=== PATIENT | female | born 1945 ===

== ENCOUNTER 2017-02-11 04:44 | Emergency (ER) | payer MEDICARE, MEDICAID ==
[2017-02-11 04:44] VITALS: BMI 28.5
[2017-02-11 05:08] VITALS: BP 148/53; RESP 22; O2SAT 93
--- NOTE | 2017-02-11 06:12 | C.PDOC ---
Time Seen by Provider: 02/11/17 06:09 Chief Complaint (Nursing): Headache Past Medical History Vital Signs: Last Vital Signs Temp Pulse 75 02/11/17 05:01 Resp 22 02/11/17 05:01 BP 148/53 L 02/11/17 05:01 Pulse Ox 93 L 02/11/17 05:01 - Medical History PMH: Asthma, Back Problems, Cardia Arrhythmia, COPD (Asthma), Emphysema, Gastritis, Gastrointestinal Ulcer, HTN, Osteoporosis Denies: Chronic Kidney Disease Surgical History: Appendectomy, Cholecystectomy, Endoscopy - [facility] Procedures ESOPHAGOGASTRODUODENOSCOPY [EGD] W/CLOSED BIOPSY (10/15/13) Family History: States: Unknown Family Hx - Social History Hx Tobacco Use: No Hx Alcohol Use: No Hx Substance Use: No - Immunization History Hx Tetanus Toxoid Vaccination: No Hx Influenza Vaccination: No Hx Pneumococcal Vaccination: No ED Course And Treatment O2 Sat by Pulse Oximetry: 93 Medical Decision Making Medical Decision Making: eloped Disposition - Disposition Disposition: ELOPEMENT - ER ONLY Disposition Time: 06:12 Condition: GOOD - Clinical Impression Clinical Impression: Epistaxis
[2017-02-11 06:53] VITALS: PULSE 18
--- NOTE | 2017-02-16 19:23 | CARD ---
APPROVED REPORT EKG Measurement Heart [id number] <Conclusion> Normal sinus rhythm Septal infarct, age undetermined Abnormal ECG
== END 2017-02-11 06:42 | disposition left against medical advice (07) ==
LOC: C.ER 04:44
DX: R04.0 Epistaxis (principal); M81.0 Age-related osteoporosis without current pathological fracture; I10 Essential (primary) hypertension; J44.9 Chronic obstructive pulmonary disease, unspecified

== ENCOUNTER 2017-09-23 10:19 | Inpatient (IN) | payer MEDICARE, MEDICAID ==
[2017-09-23 10:20] VITALS: BMI 28.5
[2017-09-23] MEDS ORDERED: Albuterol-Ipratrop 3 mg / 0.5 (3 ml) UD ONE ×2 (10:50→11:57)
--- NOTE | 2017-09-23 11:39 | C.PDOC ---
History Of Present Illness 72-year-old female, PMHx includes Asthma, presents to the emergency department with complaints of cough, congestion and shortness of breath over the past few days. Patient states symptoms are similar to asthma exacerbation. Denies nausea/ vomiting, fevers, chills, or any other associated symptoms. No other complaints at this time. Time Seen by Provider: 09/23/17 11:19 Chief Complaint (Nursing): Chest Pain History Per: Patient History/Exam Limitations: no limitations Onset/Duration Of Symptoms: Hrs Current Symptoms Are (Timing): Still Present Past Medical History Reviewed: Historical Data, Nursing Documentation, Vital Signs Vital Signs: Last Vital Signs Temp 97.8 F 09/26/17 09:14 Pulse 70 09/26/17 09:14 Resp 20 09/26/17 09:14 BP 163/72 H 09/26/17 09:14 Pulse Ox 95 09/26/17 09:14 - Medical History PMH: Asthma, Back Problems, Cardia Arrhythmia, COPD (Asthma), Emphysema, Gastritis, Gastrointestinal Ulcer, HTN, Osteoporosis Surgical History: Appendectomy, Cholecystectomy, Endoscopy - [facility] Procedures ESOPHAGOGASTRODUODENOSCOPY [EGD] W/CLOSED BIOPSY (10/15/13) Family History: States: No Known Family Hx - Social History Hx Tobacco Use: No Hx Alcohol Use: No Hx Substance Use: No - Immunization History Hx Tetanus Toxoid Vaccination: No Hx Influenza Vaccination: No Hx Pneumococcal Vaccination: No Review Of Systems Constitutional: Negative for: Fever, Chills Cardiovascular: Negative for: Chest Pain, Edema Respiratory: Positive for: Cough, Shortness of Breath, Wheezing. Negative for: Sputum Gastrointestinal: Negative for: Nausea, Vomiting Musculoskeletal: Negative for: Back Pain Neurological: Negative for: Weakness, Numbness, Headache, Dizziness Physical Exam - Physical Exam Appears: Non-toxic, No Acute Distress Skin: Warm, Dry, No Rash Head: Normacephalic Eye(s): bilateral: PERRL Nose: Normal Oral Mucosa: Moist Neck: Normal ROM Chest: Symmetrical Cardiovascular: Rhythm Regular, No Murmur Respiratory: No Decreased Breath Sounds, No Accessory Muscle Use, No Rales, No Rhonchi, Wheezing (B/L expiratory), Other (retractions) Extremity: Normal ROM Neurological/Psych: Oriented x3, Normal Speech ED Course And Treatment - Laboratory Results Result Diagrams: 09/25/17 06:48 09/25/17 06:48 ECG: Interpreted By Me ECG Rhythm: Sinus Rhythm ECG Interpretation: Normal Rate From EC O2 Sat by Pulse Oximetry: 97 (RA) Pulse Ox Interpretation: Normal Progress - Re-Evaluation Re-evaluation Note: 09/23/17 14:16 PS FEELS BETTER. NOW RELATES HO MYASTHENIA GRAVIS BUT NONCOMPLIANT W MEDS X 2 WEEKS. "I FEEL LIKE IT'S ACTING UP". MILD RESP DIST NEURO DR HOSKINS 09/23/17 14:18 D/W DR HOSKINS AWARE OF ER FINDINGS. ADVISES PEAK FLOW, DC IF WNL. 09/23/17 14:53 PF 110. WILL ADMIT PER NEUROLOGY RECOMMENDATION D/W DR Rose ADAMS MED BIOPHARMACEUTICAL REP WILL ADMIT - Data Reviewed Data Reviewed: Lab, Diagnostic imaging, Old records Disposition Counseled Patient/Family Regarding: Studies Performed, Diagnosis (N) - Disposition Disposition: HOSPITALIZED Disposition Time: 14:54 Condition: STABLE - Clinical Impression Clinical Impression: Myasthenia gravis with (acute) exacerbation, Asthma exacerbation - Scribe Statement The provider has reviewed the documentation as recorded by the Scribe (Azalia Taylor) All medical record entries made by the Scribe were at my direction and personally dictated by me. I have reviewed the chart and agree that the record accurately reflects my personal performance of the history, physical exam, medical decision making, and the department course for this patient. I have also personally directed, reviewed, and agree with the discharge instructions and disposition. Decision To Admit - Pt Status Changed To: Hospital Disposition Of: Inpatient - Admit Certification Admit to Inpatient:: After my assessment, the patient will require hospitalization for at least two midnights. This is because of the severity of symptoms shown, intensity of services needed, and/or the medical risk in this patient being treated as an outpatient. - InPatient: Physician Admission Certification: I certify that this patient requires 2 or more midnights of care for the following reason:: SEE NOTE - . Bed Request Type: Regular Admitting Physician: Eder Adams Patient Diagnosis: Myasthenia gravis with (acute) exacerbation, Asthma exacerbation
[2017-09-23] MEDS ORDERED: MethylPREDNISolone 40 mg Vial ONE (11:57)
[2017-09-23 12:30] LABS: VENOUS BLOOD GAS BASE EXCESS 3.4 mmol/L (0.0-2.0); VENOUS BLOOD GAS PCO2 55 mmHg (40-60); VENOUS BLOOD GAS PO2 51 mm/Hg (30-55); VENOUS BLOOD PH 7.35 (7.32-7.43)
[2017-09-23] MEDS: Albuterol-Ipratrop 3 mg / 0.5 (3 ml) UD IH SCH ×3 (12:30→13:00)
[2017-09-23 12:39] LABS: BASO # 0.1 K/uL (0.0-0.2); BASO % 1.2 % (0.0-2.0); EOS % 0.4 % (0.0-4.0); HEMOGLOBIN 14.4 g/dL (11.0-16.0); LYMPH # 1.3 K/uL (1.0-4.3); LYMPH % 22.2 % (20.0-40.0); MEAN CELL VOLUME 88.2 fL (81.0-99.0); MEAN CORPUSCULAR HEMOGLOBIN 29.3 pg (27.0-31.0); MEAN CORPUSCULAR HGB CONC 33.2 g/dL (33.0-37.0); MEAN PLATELET VOLUME 9.6 fL (7.2-11.7); MONO # 0.5 K/uL (0.0-0.8); MONO % 8.9 % (0.0-10.0); NEUT % 67.3 % (50.0-75.0); RBC 4.92 Mil/uL (3.80-5.20); RED CELL DISTRIBUTION WIDTH 13.6 % (11.5-14.5); WHITE BLOOD COUNT 5.9 K/uL (4.8-10.8)
[2017-09-23 12:53] LABS: ALB/GLOB RATIO 1.2 (1.0-2.1); ALBUMIN 4.3 g/dL (3.5-5.0); ALT/SGPT 26 U/L (9-52); AST/SGOT 34 U/L (14-36); BLOOD UREA NITROGEN 8 mg/dL (7-17); GFR AFRICAN-AMERICAN > 60; GFR NON-AFRICAN AMERICAN > 60
--- NOTE | 2017-09-23 13:04 | RAD ---
HISTORY: SOB COMPARISON: Chest x-ray performed 10/14/16 TECHNIQUE: Chest PA and lateral FINDINGS: Examination limited by habitus. LUNGS: Central vascular prominence. Chronic appearing interstitial markings. No focal consolidation. Please note that chest x-ray has limited sensitivity for the detection of pulmonary masses. PLEURA: No significant pleural effusion identified. No definite pneumothorax . CARDIOVASCULAR: Heart size appears within normal limits. Dense atherosclerotic calcifications of the aortic knob. OSSEOUS STRUCTURES: Degenerative changes of the spine. VISUALIZED UPPER ABDOMEN: Unremarkable. OTHER FINDINGS: None. IMPRESSION: Mild central vascular prominence. Chronic appearing interstitial markings.
[2017-09-23 13:05] LABS: B-TYPE NATRIURETIC PEPTIDE 123 pg/mL (0-900)
--- NOTE | 2017-09-23 19:30 | CP.PCM.HP ---
Past Patient History - Past Medical History & Family History Past Medical History?: Yes - Past Social History Smoking Status: Never Smoked - CARDIAC Hx Cardia Arrhythmia: Yes Hx Hypertension: Yes - PULMONARY Hx Asthma: Yes Hx Chronic Obstructive Pulmonary Disease (COPD): Yes (Asthma) Hx Emphysema: Yes - NEUROLOGICAL Hx Neurological Disorder: Yes HX Cerebrovascular Accident: Yes Other/Comment: myathenia gravis - HEENT Hx Cataracts: Yes - RENAL Hx Chronic Kidney Disease: No - ENDOCRINE/METABOLIC Hx Endocrine Disorders: No - HEMATOLOGICAL/ONCOLOGICAL Hx Blood Disorders: No - INTEGUMENTARY Hx Dermatological Problems: No - MUSCULOSKELETAL/RHEUMATOLOGICAL Hx Osteoporosis: Yes - GASTROINTESTINAL Hx Gastritis: Yes - GENITOURINARY/GYNECOLOGICAL Hx Genitourinary Disorders: No - PSYCHIATRIC Hx Substance Use: No - SURGICAL HISTORY Hx Appendectomy: Yes Hx Cholecystectomy: Yes - ANESTHESIA Hx Anesthesia: Yes Hx Anesthesia Reactions: No Hx Malignant Hyperthermia: No Meds Allergies/Adverse Reactions: Allergies Allergy/AdvReac Type Severity Reaction Status Date / Time Penicillins Allergy RASH Verified 09/23/17 10:53 Physical Exam - Constitutional Appears: Well - Head Exam Head Exam: ATRAUMATIC, NORMAL INSPECTION, NORMOCEPHALIC - Eye Exam Eye Exam: EOMI, Normal appearance, PERRL Pupil Exam: NORMAL ACCOMODATION, PERRL - ENT Exam ENT Exam: Mucous Membranes Moist, Normal Exam - Neck Exam Neck exam: Positive for: Normal Inspection - Respiratory Exam Respiratory Exam: Decreased Breath Sounds - Cardiovascular Exam Cardiovascular Exam: REGULAR RHYTHM, +S1, +S2 - GI/Abdominal Exam GI & Abdominal Exam: Diminished Bowel Sounds, Soft - Rectal Exam Rectal Exam: Deferred Results - Vital Signs Recent Vital Signs: Last Vital Signs Temp 99.4 F 09/23/17 17:25 Pulse 90 09/23/17 17:25 Resp 20 09/23/17 17:25 BP 165/65 H 09/23/17 17:25 Pulse Ox 95 09/23/17 17:25 - Labs Result Diagrams: 09/23/17 12:33 09/23/17 12:33 Labs: Laboratory Results - last 24 hr 09/23/17 09/23/17 09/23/17 12:19 12:27 12:33 WBC 5.9 RBC 4.92 Hgb 14.4 Hct 43.4 MCV 88.2 MCH 29.3 MCHC 33.2 RDW 13.6 Plt Count 248 MPV 9.6 Neut % (Auto) 67.3 Lymph % (Auto) 22.2 [place] % (Auto) 8.9 Eos % (Auto) 0.4 Baso % (Auto) 1.2 Neut # (Auto) 4.0 Lymph # (Auto) 1.3 [place] # (Auto) 0.5 Eos # (Auto) 0.0 Baso # (Auto) 0.1 pO2 51 VBG pH 7.35 VBG pCO2 55 VBG HCO3 27.2 VBG Total CO2 32.1 H VBG O2 Sat (Calc) 87.4 H VBG Base Excess 3.4 H VBG Potassium 2.8 L Sodium 141.0 Chloride 105.0 Glucose 106 H Lactate 1.6 Potassium Carbon Dioxide Anion Gap BUN Creatinine Est GFR ( Amer) Est GFR (Non-Af Amer) Random Glucose Calcium Total Bilirubin AST ALT Alkaline Phosphatase Troponin I NT-Pro-B Natriuret Pep Total Protein Albumin Globulin Albumin/Globulin Ratio Venous Blood Potassium 2.8 L Influenza Typ A,B (EIA) Negative for flu a/b 09/23/17 12:33 WBC RBC Hgb Hct MCV MCH MCHC RDW Plt Count MPV Neut % (Auto) Lymph % (Auto) [place] % (Auto) Eos % (Auto) Baso % (Auto) Neut # (Auto) Lymph # (Auto) [place] # (Auto) Eos # (Auto) Baso # (Auto) pO2 VBG pH VBG pCO2 VBG HCO3 VBG Total CO2 VBG O2 Sat (Calc) VBG Base Excess VBG Potassium Sodium 139 Chloride 95 L Glucose Lactate Potassium 3.2 L Carbon Dioxide 31 H Anion Gap 16 BUN 8 Creatinine 0.5 L Est GFR ( Amer) > 60 Est GFR (Non-Af Amer) > 60 Random Glucose 113 H Calcium 9.0 Total Bilirubin 0.3 AST 34 ALT 26 Alkaline Phosphatase 75 Troponin I < 0.0120 NT-Pro-B Natriuret Pep 123 Total Protein 7.9 Albumin 4.3 Globulin 3.7 Albumin/Globulin Ratio 1.2 Venous Blood Potassium Influenza Typ A,B (EIA)
[2017-09-23] MEDS ORDERED: Moxifloxacin IV 400mg/250ml NS 400 MG/250 ML BAG IVPB SCH (20:00)
[2017-09-23] MEDS: Apap-Butalbital-Caffeine 325-50-40mg Tab PO PRN (21:57)
[2017-09-23] MEDS: MethylPREDNISolone 40 mg Vial IVP SCH (21:57)
[2017-09-24] MEDS: Albuterol-Ipratrop 3 mg / 0.5 (3 ml) UD INH SCH ×4 (01:38→20:35)
[2017-09-24] MEDS: MethylPREDNISolone 40 mg Vial IVP SCH ×3 (05:10→21:10)
--- NOTE | 2017-09-24 07:25 | CP.PCM.CON ---
History of Present Illness - History of Present Illness History of Present Illness: consult dictated RESTPIRATORY COMPLAINTS KNOWN MYASTHENIA NON COMPLIANT WITH MEDS Rx FROM PULMONARY FOR HER ISSUES WILL REPEAT MG WORK UP NO MESTINON FOR NOW Past Patient History - Past Medical History & Family History Past Medical History?: Yes - Past Social History Smoking Status: Former Smoker - CARDIAC Hx Cardia Arrhythmia: Yes Hx Hypertension: Yes - PULMONARY Hx Asthma: Yes Hx Chronic Obstructive Pulmonary Disease (COPD): Yes (Asthma) Hx Emphysema: Yes - NEUROLOGICAL Hx Neurological Disorder: Yes HX Cerebrovascular Accident: Yes Other/Comment: myathenia gravis - HEENT Hx Cataracts: Yes - RENAL Hx Chronic Kidney Disease: No - ENDOCRINE/METABOLIC Hx Endocrine Disorders: No - HEMATOLOGICAL/ONCOLOGICAL Hx Blood Disorders: No - INTEGUMENTARY Hx Dermatological Problems: No - MUSCULOSKELETAL/RHEUMATOLOGICAL Hx Falls: No - GASTROINTESTINAL Hx Gastritis: Yes - GENITOURINARY/GYNECOLOGICAL Hx Genitourinary Disorders: No - PSYCHIATRIC Hx Substance Use: No - SURGICAL HISTORY Hx Appendectomy: Yes Hx Cholecystectomy: Yes - ANESTHESIA Hx Anesthesia: Yes Hx Anesthesia Reactions: No Hx Malignant Hyperthermia: No Meds Allergies/Adverse Reactions: Allergies Allergy/AdvReac Type Severity Reaction Status Date / Time Penicillins Allergy RASH Verified 09/23/17 10:53 - Medications Medications: Current Medications Acetaminophen/Butalbital/Caffeine (Fioricet) 1 tab PO BID PRN PRN Reason: Headache Last Admin: 09/23/17 21:57 Dose: 1 tab Albuterol/Ipratropium (Duoneb 3 Mg/0.5 Mg (3 Ml) Ud) 3 ml INH RQ6 [facility] Last Admin: 09/24/17 01:38 Dose: 3 ml Enoxaparin Sodium (Lovenox) 40 mg SC DAILY [facility] Moxifloxacin HCl (Avelox Iv 400mg/250ml Ns) 400 mg in 250 mls @ 167 mls/hr IVPB Q24H [facility] Last Admin: 09/23/17 22:11 Dose: 167 mls/hr Losartan Potassium (Cozaar) 100 mg PO DAILY [facility] Memantine (Namenda) 5 mg PO DAILY [facility] Methylprednisolone (Solu-Medrol) 40 mg IVP Q8 [facility] Last Admin: 09/24/17 05:10 Dose: 40 mg Montelukast Sodium (Singulair) 10 mg PO HS [facility] Last Admin: 09/23/17 21:58 Dose: 10 mg Pantoprazole Sodium (Protonix Ec Tab) 40 mg PO DAILY [facility] Pneumococcal Polyvalent Vaccine (Pneumovax 23 Vaccine) 0.5 ml IM .ONCE ONE Stop: 09/25/17 10:01 Fluticasone/Salmeterol (Advair Diskus 250/50) 1 puff INH RQ12 [facility] Sertraline HCl (Zoloft) 50 mg PO HS [facility] Last Admin: 09/23/17 22:20 Dose: 50 mg Results - Vital Signs Recent Vital Signs: Last Vital Signs Temp 97.6 F 09/24/17 00:00 Pulse 83 09/24/17 00:00 Resp 20 09/24/17 00:00 BP 154/66 H 09/23/17 20:00 Pulse Ox 94 L 09/24/17 00:00 - Labs Result Diagrams: 09/23/17 12:33 09/23/17 12:33 Labs: Laboratory Results - last 24 hr 09/23/17 09/23/17 09/23/17 12:19 12:27 12:33 WBC 5.9 RBC 4.92 Hgb 14.4 Hct 43.4 MCV 88.2 MCH 29.3 MCHC 33.2 RDW 13.6 Plt Count 248 MPV 9.6 Neut % (Auto) 67.3 Lymph % (Auto) 22.2 [place] % (Auto) 8.9 Eos % (Auto) 0.4 Baso % (Auto) 1.2 Neut # (Auto) 4.0 Lymph # (Auto) 1.3 [place] # (Auto) 0.5 Eos # (Auto) 0.0 Baso # (Auto) 0.1 pO2 51 VBG pH 7.35 VBG pCO2 55 VBG HCO3 27.2 VBG Total CO2 32.1 H VBG O2 Sat (Calc) 87.4 H VBG Base Excess 3.4 H VBG Potassium 2.8 L Sodium 141.0 Chloride 105.0 Glucose 106 H Lactate 1.6 Potassium Carbon Dioxide Anion Gap BUN Creatinine Est GFR ( Amer) Est GFR (Non-Af Amer) Random Glucose Calcium Total Bilirubin AST ALT Alkaline Phosphatase Troponin I NT-Pro-B Natriuret Pep Total Protein Albumin Globulin Albumin/Globulin Ratio Venous Blood Potassium 2.8 L Influenza Typ A,B (EIA) Negative for flu a/b 09/23/17 12:33 WBC RBC Hgb Hct MCV MCH MCHC RDW Plt Count MPV Neut % (Auto) Lymph % (Auto) [place] % (Auto) Eos % (Auto) Baso % (Auto) Neut # (Auto) Lymph # (Auto) [place] # (Auto) Eos # (Auto) Baso # (Auto) pO2 VBG pH VBG pCO2 VBG HCO3 VBG Total CO2 VBG O2 Sat (Calc) VBG Base Excess VBG Potassium Sodium 139 Chloride 95 L Glucose Lactate Potassium 3.2 L Carbon Dioxide 31 H Anion Gap 16 BUN 8 Creatinine 0.5 L Est GFR ( Amer) > 60 Est GFR (Non-Af Amer) > 60 Random Glucose 113 H Calcium 9.0 Total Bilirubin 0.3 AST 34 ALT 26 Alkaline Phosphatase 75 Troponin I < 0.0120 NT-Pro-B Natriuret Pep 123 Total Protein 7.9 Albumin 4.3 Globulin 3.7 Albumin/Globulin Ratio 1.2 Venous Blood Potassium Influenza Typ A,B (EIA)
[2017-09-24] MEDS: Fluticasone-Salmeterol 250-50mcg Diskus INH SCH ×2 (07:33→20:35)
[2017-09-24] MEDS: Enoxaparin 40 mg Syringe SC SCH (09:26)
[2017-09-24] MEDS: Pantoprazole 40 mg EC Tab PO SCH (09:26)
[2017-09-24] MEDS: Apap-Butalbital-Caffeine 325-50-40mg Tab PO PRN ×2 (09:26→21:10)
[2017-09-24] MEDS ORDERED: Iodixanol 320 MG/ML 100 ML BOTTLE IV ONE (11:49)
--- NOTE | 2017-09-24 13:24 | CT ---
CT chest with IV contrast Indication: Rule out thymoma Technique: Contiguous axial images were obtained through the chest with intravenous contrast enhancement. Sagittal and coronal reconstructions were generated and reviewed. This CT exam was performed using 1 or more of the following dose reduction techniques: Automated exposure control, adjustment of the MAA and/or kV according to patient size, and/or use of iterative reconstruction technique. IV Contrast: 100 mL Visipaque Radiation dose (DLP): 604.15 MGy-cm. Comparison: Chest x-ray performed 09/23/17 Findings: Visualized portions of the inferior thyroid gland appear unremarkable. The mediastinal and hilar vascular structures appear within normal limits. The heart appears within normal limits of size. Coronary artery calcifications. Atherosclerotic calcifications of the aorta. Emphysematous changes. No focal consolidation. No pleural effusion. No pneumothorax. Right middle lobe calcified granuloma. Limited visualization of the upper abdomen: Cholecystectomy clips. Hypoattenuation of the liver compatible with hepatic steatosis. Left adrenal gland nodular hypertrophy. Degenerative changes of the spine. Impression: Emphysematous changes. Evidence of prior granulomatous infection. Limited visualization of the upper abdomen: Cholecystectomy clips. Hypoattenuation of the liver compatible with hepatic steatosis. Left adrenal gland nodular hypertrophy.
--- NOTE | 2017-09-24 13:44 | CP.PCM.CON ---
History of Present Illness - History of Present Illness History of Present Illness: Patient is a 72 y/o female with PMH of asthma, COPD, Myesthinea Gravis, and gastritis who presented to the ER with 3 days of wheezing, productive cough, and shortness of breath. The patient states that this episode feels like a typical asthma exacerbation for her, but more severe. Patient reports that she has smoked "5-7 ppd for the last 35 years". Denies any intubations in the past. The patient is in no acute distress and is speaking in full sentences. She reports improvement in her breathing since she came in. Denies fevers/chills, chest pain, myalgias, and nausea/vomiting. Review of Systems - Review of Systems All systems: reviewed and no additional remarkable complaints except (shortness of breath and cough) Past Patient History - Past Medical History & Family History Past Medical History?: Yes - Past Social History Smoking Status: Former Smoker - CARDIAC Hx Cardia Arrhythmia: Yes Hx Hypertension: Yes - PULMONARY Hx Asthma: Yes Hx Chronic Obstructive Pulmonary Disease (COPD): Yes (Asthma) Hx Emphysema: Yes - NEUROLOGICAL Hx Neurological Disorder: Yes HX Cerebrovascular Accident: Yes Other/Comment: myathenia gravis - HEENT Hx Cataracts: Yes - RENAL Hx Chronic Kidney Disease: No - ENDOCRINE/METABOLIC Hx Endocrine Disorders: No - HEMATOLOGICAL/ONCOLOGICAL Hx Blood Disorders: No - INTEGUMENTARY Hx Dermatological Problems: No - MUSCULOSKELETAL/RHEUMATOLOGICAL Hx Falls: No - GASTROINTESTINAL Hx Gastritis: Yes - GENITOURINARY/GYNECOLOGICAL Hx Genitourinary Disorders: No - PSYCHIATRIC Hx Substance Use: No - SURGICAL HISTORY Hx Appendectomy: Yes Hx Cholecystectomy: Yes - ANESTHESIA Hx Anesthesia: Yes Hx Anesthesia Reactions: No Hx Malignant Hyperthermia: No Meds Allergies/Adverse Reactions: Allergies Allergy/AdvReac Type Severity Reaction Status Date / Time Penicillins Allergy RASH Verified 09/23/17 10:53 - Medications Medications: Current Medications Acetaminophen/Butalbital/Caffeine (Fioricet) 1 tab PO BID PRN PRN Reason: Headache Last Admin: 09/24/17 09:26 Dose: 1 tab Albuterol/Ipratropium (Duoneb 3 Mg/0.5 Mg (3 Ml) Ud) 3 ml INH RQ6 [facility] Last Admin: 09/24/17 07:33 Dose: 3 ml Enoxaparin Sodium (Lovenox) 40 mg SC DAILY [facility] Last Admin: 09/24/17 09:26 Dose: 40 mg Moxifloxacin HCl (Avelox Iv 400mg/250ml Ns) 400 mg in 250 mls @ 167 mls/hr IVPB Q24H [facility] Last Admin: 09/23/17 22:11 Dose: 167 mls/hr Losartan Potassium (Cozaar) 100 mg PO DAILY [facility] Last Admin: 09/24/17 09:26 Dose: 100 mg Memantine (Namenda) 5 mg PO DAILY [facility] Last Admin: 09/24/17 09:26 Dose: 5 mg Methylprednisolone (Solu-Medrol) 40 mg IVP Q8 [facility] Last Admin: 09/24/17 05:10 Dose: 40 mg Montelukast Sodium (Singulair) 10 mg PO [facility] Last Admin: 09/23/17 21:58 Dose: 10 mg Pantoprazole Sodium (Protonix Ec Tab) 40 mg PO DAILY [facility] Last Admin: 09/24/17 09:26 Dose: 40 mg Pneumococcal Polyvalent Vaccine (Pneumovax 23 Vaccine) 0.5 ml IM .ONCE ONE Stop: 09/25/17 10:01 Fluticasone/Salmeterol (Advair Diskus 250/50) 1 puff INH RQ12 [facility] Last Admin: 09/24/17 07:33 Dose: 1 puff Sertraline HCl (Zoloft) 50 mg PO [facility] Last Admin: 09/23/17 22:20 Dose: 50 mg Physical Exam - Head Exam Head Exam: ATRAUMATIC, NORMOCEPHALIC - ENT Exam ENT Exam: Mucous Membranes Moist - Neck Exam Neck exam: Positive for: Normal Inspection - Respiratory Exam Respiratory Exam: Rhonchi, Wheezes - Cardiovascular Exam Cardiovascular Exam: REGULAR RHYTHM - GI/Abdominal Exam GI & Abdominal Exam: Normal Bowel Sounds, Soft - Extremities Exam Extremities exam: Positive for: normal inspection - Neurological Exam Neurological exam: Alert, Oriented x3 Results - Vital Signs Recent Vital Signs: Last Vital Signs Temp 98.3 F 09/24/17 07:35 Pulse 87 09/24/17 07:35 Resp 20 09/24/17 07:35 BP 154/71 H 09/24/17 07:35 Pulse Ox 97 09/24/17 07:35 - Labs Result Diagrams: 09/23/17 12:33 09/23/17 12:33 Assessment & Plan (1) Asthma exacerbation Status: Acute Comment: secondary to upper respiratory tract infection/bronchitis. 1. Shortness of breath. - CXR 09/23/17: central vascular prominence, chronic appearing interstitial markings, no focal consolidation. - Influenza A/B negative. - Duonebs, solu-medrol, singulair, advair diskus. - Abx: Avelox. - Consider ABG
--- NOTE | 2017-09-24 14:55 | CON ---
DATE: 09/24/2017. ATTENDING PHYSICIAN: Alex Estrada MD. LOCATION: Room #351, bed B. REASON FOR CONSULTATION: Respiratory problem with history of myasthenia gravis. HISTORY OF PRESENT ILLNESS: Ms. Lexii Jin is a 72-year-old right handed female who is known to me from outpatient visit, been worked up for her weakness, been diagnosed myasthenia gravis in the past, been on medication, which was discontinued by her own for almost a year or so, presenting with cough and cold, productive in nature for the last one week. She denies any focal weakness. No droopy eyelid. No double vision. However, she admitted generalized weakness. PAST MEDICAL HISTORY: As stated myasthenia gravis, depression, bronchial asthma. PERSONAL HISTORY: Denies smoking, alcohol use. ALLERGIES: TO PENICILLIN. REVIEW OF SYSTEMS: A 12-point system being reviewed. From neuro, myasthenia gravis and generalized weakness. PHYSICAL EXAMINATION: VITAL SIGNS: Blood pressure 154/66, mean arterial pressure of 95, respiratory rate 16, temperature afebrile. NECK: Supple. Neck flexion is 4/5. HEART: Sounds are regular with mild tachycardia. EXTREMITIES: No edema of legs. LUNGS: In one breath, she could able to count the number up to 15. NEUROLOGICAL EXAMINATION: Mental status examination, she is awake, alert and oriented to person, place and time. She is communicable only in [place]. Her speech is fluent. Cranial nerve examination, visual field intact. Pupils reactive to light. Extraocular movements are normal. No paresis. No subjective as well as objective diplopia. No ptosis. Good gag. Motor examination, outstretched hand with eyes closed, no drift noted. Power is symmetric on either side. Deep tendon reflexes trace on either side. Plantars are downgoing. Sensory examination, mild distal sensorimotor neuropathy. Coordination, [id number] test is intact. Gait is deferred at this time. LABORATORY DATA: Blood workup, WBC 5.9, hemoglobin 14.4, hematocrit 43.4, platelet 248. VBG 7.35, PCO2 32.1, oxygen 87.4, PO2 51. Sodium 139, potassium 3.2, chloride 95, bicarbonate 31, BUN 8, creatinine 0.5, GFR more than 60, glucose 113. Chest x-ray been reported as mild central vascular prominence. CONCLUSION: Ms. Lexii Jin is suffering from history of myasthenia gravis, been worked up in the past, right now she is not on any cholinergic medication for her myasthenia gravis. RECOMMENDATIONS: 1. Control her pulmonary infection with proper antibiotics and adrenergic drugs. 2. I recommended her acetylcholine receptor antibody antibodies. I also recommended her to have a CT of the chest with contrast to rule out thymoma. No point of starting medication for myasthenia gravis at present. I would like to follow her vital capacity. If necessary, I will start her medication following her workup. Shlomo Novak MD
--- NOTE | 2017-09-24 16:45 | CP.PCM.PN ---
Subjective - Date & Time of Evaluation Date of Evaluation: 09/24/17 Time of Evaluation: 08:00 - Subjective Subjective: clinically same Objective - Vital Signs/Intake and Output Vital Signs (last 24 hours): Temp Pulse Resp BP Pulse Ox 98.3 F 87 20 154/71 H 97 09/24/17 07:35 09/24/17 07:35 09/24/17 07:35 09/24/17 07:35 09/24/17 07:35 - Medications Medications: Current Medications Acetaminophen/Butalbital/Caffeine (Fioricet) 1 tab PO BID PRN PRN Reason: Headache Last Admin: 09/24/17 09:26 Dose: 1 tab Albuterol/Ipratropium (Duoneb 3 Mg/0.5 Mg (3 Ml) Ud) 3 ml INH RQ6 [facility] Last Admin: 09/24/17 14:07 Dose: 3 ml Enoxaparin Sodium (Lovenox) 40 mg SC DAILY [facility] Last Admin: 09/24/17 09:26 Dose: 40 mg Moxifloxacin HCl (Avelox Iv 400mg/250ml Ns) 400 mg in 250 mls @ 167 mls/hr IVPB Q24H [facility] Last Admin: 09/23/17 22:11 Dose: 167 mls/hr Losartan Potassium (Cozaar) 100 mg PO DAILY [facility] Last Admin: 09/24/17 09:26 Dose: 100 mg Memantine (Namenda) 5 mg PO DAILY [facility] Last Admin: 09/24/17 09:26 Dose: 5 mg Methylprednisolone (Solu-Medrol) 40 mg IVP Q8 [facility] Last Admin: 09/24/17 14:07 Dose: 40 mg Montelukast Sodium (Singulair) 10 mg PO HS [facility] Last Admin: 09/23/17 21:58 Dose: 10 mg Pantoprazole Sodium (Protonix Ec Tab) 40 mg PO DAILY [facility] Last Admin: 09/24/17 09:26 Dose: 40 mg Pneumococcal Polyvalent Vaccine (Pneumovax 23 Vaccine) 0.5 ml IM .ONCE ONE Stop: 09/25/17 10:01 Fluticasone/Salmeterol (Advair Diskus 250/50) 1 puff INH RQ12 [facility] Last Admin: 09/24/17 07:33 Dose: 1 puff Sertraline HCl (Zoloft) 50 mg PO HS [facility] Last Admin: 09/23/17 22:20 Dose: 50 mg - Labs Labs: 09/23/17 12:33 09/23/17 12:33 - Constitutional Appears: Well - Head Exam Head Exam: ATRAUMATIC, NORMAL INSPECTION, NORMOCEPHALIC - Eye Exam Eye Exam: EOMI, Normal appearance, PERRL Pupil Exam: NORMAL ACCOMODATION, PERRL - ENT Exam ENT Exam: Mucous Membranes Moist, Normal Exam - Neck Exam Neck Exam: Full ROM, Normal Inspection. absent: Lymphadenopathy - Respiratory Exam Respiratory Exam: Decreased Breath Sounds - Cardiovascular Exam Cardiovascular Exam: REGULAR RHYTHM, +S1, +S2 - GI/Abdominal Exam GI & Abdominal Exam: Soft, Diminished Bowel Sounds - Rectal Exam Rectal Exam: Deferred
[2017-09-25] MEDS: Albuterol-Ipratrop 3 mg / 0.5 (3 ml) UD INH SCH ×4 (02:35→19:35)
[2017-09-25] MEDS: MethylPREDNISolone 40 mg Vial IVP SCH ×3 (05:15→22:13)
[2017-09-25 06:59] LABS: BASO % 0.2 % (0.0-2.0); HEMOGLOBIN 12.8 g/dL (11.0-16.0); LYMPH # 1.3 K/uL (1.0-4.3); LYMPH % 11.3 % (20.0-40.0); MEAN CELL VOLUME 87.8 fL (81.0-99.0); MEAN CORPUSCULAR HGB CONC 33.1 g/dL (33.0-37.0); MEAN PLATELET VOLUME 9.7 fL (7.2-11.7); MONO # 0.7 K/uL (0.0-0.8); MONO % 6.7 % (0.0-10.0); NEUT # 9.1 K/uL (1.8-7.0); NEUT % 81.8 % (50.0-75.0); RBC 4.39 Mil/uL (3.80-5.20); RED CELL DISTRIBUTION WIDTH 13.8 % (11.5-14.5); WHITE BLOOD COUNT 11.2 K/uL (4.8-10.8)
[2017-09-25 07:11] LABS: ALB/GLOB RATIO 1.1 (1.0-2.1); ALBUMIN 3.8 g/dL (3.5-5.0); ALT/SGPT 30 U/L (9-52); AST/SGOT 34 U/L (14-36); BLOOD UREA NITROGEN 23 mg/dL (7-17); CALCIUM 9.3 mg/dl (8.6-10.4); GFR AFRICAN-AMERICAN > 60; GFR NON-AFRICAN AMERICAN > 60
[2017-09-25] MEDS: Fluticasone-Salmeterol 250-50mcg Diskus INH SCH ×2 (07:21→19:33)
--- NOTE | 2017-09-25 09:08 | PN ---
DATE: 09/25/2017. NEUROLOGICAL PROBLEM: Myasthenia gravis. PHYSICAL EXAMINATION: VITAL SIGNS: Blood pressure 167/69, mean artery pressure of 101, respiratory rate 16, temperature 98.6. GENERAL: The patient has been comfortable, lying down, awake, less cough, slept good. Rest of the examinations are unchanged. Her work up for myasthenia gravis CT of the chest, no evidence of thymoma. The blood work for acetylcholine receptor antibodies are pending. Continue the present management. If medically stable, the patient can be discharged and should have followup visit with me as outpatient. Shlomo Novak MD
[2017-09-25] MEDS: Enoxaparin 40 mg Syringe SC SCH (09:23)
[2017-09-25] MEDS: Apap-Butalbital-Caffeine 325-50-40mg Tab PO PRN ×2 (09:23→17:56)
[2017-09-25] MEDS: Pantoprazole 40 mg EC Tab PO SCH (09:24)
[2017-09-25] MEDS ORDERED: Pneumococcal 23-Valent Vaccine IM ONE (10:00)
[2017-09-25] MEDS: guaiFENesin 600 mg ER Tab PO SCH ×2 (13:18→17:56)
--- NOTE | 2017-09-25 13:45 | CP.PCM.PN ---
Subjective - Date & Time of Evaluation Date of Evaluation: 09/25/17 Time of Evaluation: 09:00 - Subjective Subjective: Patient was seen and examined at the bedside. Patient reports feeling better today, however, she had some trouble sleeping last night. She still complains of a cough that is sometimes productive. She states her wheezing and shortness of breath are slightly improved. She is tolerating her medications. She denies any chest pain, palpitations nausea, or vomiting. Objective - Vital Signs/Intake and Output Vital Signs (last 24 hours): Temp Pulse Resp BP Pulse Ox 97.3 F L 86 20 162/66 H 99 09/25/17 08:03 09/25/17 08:03 09/25/17 08:03 09/25/17 08:03 09/25/17 08:03 Intake and Output: 09/25/17 09/25/17 06:59 18:59 Intake Total 250 Balance 250 - Medications Medications: Current Medications Acetaminophen/Butalbital/Caffeine (Fioricet) 1 tab PO BID PRN PRN Reason: Headache Last Admin: 09/25/17 09:23 Dose: 1 tab Albuterol/Ipratropium (Duoneb 3 Mg/0.5 Mg (3 Ml) Ud) 3 ml INH RQ6 [facility] Last Admin: 09/25/17 13:08 Dose: 3 ml Enoxaparin Sodium (Lovenox) 40 mg SC DAILY [facility] Last Admin: 09/25/17 09:23 Dose: 40 mg Guaifenesin (Mucinex La) 600 mg PO BID [facility] Last Admin: 09/25/17 13:18 Dose: 600 mg Losartan Potassium (Cozaar) 100 mg PO DAILY [facility] Last Admin: 09/25/17 09:24 Dose: 100 mg Memantine (Namenda) 5 mg PO DAILY [facility] Last Admin: 09/25/17 09:22 Dose: 5 mg Methylprednisolone (Solu-Medrol) 40 mg IVP Q8 [facility] Last Admin: 09/25/17 13:18 Dose: 40 mg Montelukast Sodium (Singulair) 10 mg PO HS [facility] Last Admin: 09/24/17 21:10 Dose: 10 mg Moxifloxacin HCl (Avelox) 400 mg PO Q24H [facility] Last Admin: 09/24/17 21:10 Dose: 400 mg Pantoprazole Sodium (Protonix Ec Tab) 40 mg PO DAILY [facility] Last Admin: 09/25/17 09:24 Dose: 40 mg Fluticasone/Salmeterol (Advair Diskus 250/50) 1 puff INH RQ12 [facility] Last Admin: 09/25/17 07:21 Dose: 1 puff Sertraline HCl (Zoloft) 50 mg PO HS [facility] Last Admin: 09/24/17 21:15 Dose: 50 mg - Labs Labs: 09/25/17 06:48 09/25/17 06:48 - Head Exam Head Exam: ATRAUMATIC, NORMOCEPHALIC - Eye Exam Eye Exam: Normal appearance - ENT Exam ENT Exam: Mucous Membranes Moist - Neck Exam Neck Exam: Normal Inspection - Respiratory Exam Respiratory Exam: Rhonchi, Wheezes - Cardiovascular Exam Cardiovascular Exam: REGULAR RHYTHM - GI/Abdominal Exam GI & Abdominal Exam: Soft, Normal Bowel Sounds - Extremities Exam Extremities Exam: Normal Inspection - Neurological Exam Neurological Exam: Alert Assessment and Plan (1) COPD exacerbation Assessment & Plan: -chest CT: emphysematous changes, chronic appearing interstitial markings, prior granulomatous infection -continue avelox -continue duoneb treatments -continue solumedrol -continue advair Status: Acute
--- NOTE | 2017-09-25 16:41 | CARD ---
APPROVED REPORT EKG Measurement Heart [id number] ID [id number] <Conclusion> Normal sinus rhythm Septal infarct, age undetermined Abnormal ECG
--- NOTE | 2017-09-25 18:01 | CP.PCM.PN ---
Subjective - Date & Time of Evaluation Date of Evaluation: 09/25/17 Time of Evaluation: 08:40 - Subjective Subjective: clinically same Objective - Vital Signs/Intake and Output Vital Signs (last 24 hours): Temp Pulse Resp BP Pulse Ox 97.3 F L 86 20 162/66 H 99 09/25/17 08:03 09/25/17 08:03 09/25/17 08:03 09/25/17 08:03 09/25/17 08:03 Intake and Output: 09/25/17 09/25/17 06:59 18:59 Intake Total 250 500 Balance 250 500 - Medications Medications: Current Medications Acetaminophen/Butalbital/Caffeine (Fioricet) 1 tab PO BID PRN PRN Reason: Headache Last Admin: 09/25/17 17:56 Dose: 1 tab Albuterol/Ipratropium (Duoneb 3 Mg/0.5 Mg (3 Ml) Ud) 3 ml INH RQ6 [facility] Last Admin: 09/25/17 13:08 Dose: 3 ml Enoxaparin Sodium (Lovenox) 40 mg SC DAILY [facility] Last Admin: 09/25/17 09:23 Dose: 40 mg Guaifenesin (Mucinex La) 600 mg PO BID [facility] Last Admin: 09/25/17 17:56 Dose: 600 mg Losartan Potassium (Cozaar) 100 mg PO DAILY [facility] Last Admin: 09/25/17 09:24 Dose: 100 mg Memantine (Namenda) 5 mg PO DAILY [facility] Last Admin: 09/25/17 09:22 Dose: 5 mg Methylprednisolone (Solu-Medrol) 40 mg IVP Q8 [facility] Last Admin: 09/25/17 13:18 Dose: 40 mg Montelukast Sodium (Singulair) 10 mg PO HS [facility] Last Admin: 09/24/17 21:10 Dose: 10 mg Moxifloxacin HCl (Avelox) 400 mg PO Q24H [facility] Last Admin: 09/24/17 21:10 Dose: 400 mg Pantoprazole Sodium (Protonix Ec Tab) 40 mg PO DAILY [facility] Last Admin: 09/25/17 09:24 Dose: 40 mg Fluticasone/Salmeterol (Advair Diskus 250/50) 1 puff INH RQ12 [facility] Last Admin: 09/25/17 07:21 Dose: 1 puff Sertraline HCl (Zoloft) 50 mg PO HS [facility] Last Admin: 09/24/17 21:15 Dose: 50 mg - Labs Labs: 09/25/17 06:48 09/25/17 06:48 - Constitutional Appears: Well - Head Exam Head Exam: ATRAUMATIC, NORMAL INSPECTION, NORMOCEPHALIC - Eye Exam Eye Exam: EOMI, Normal appearance, PERRL Pupil Exam: NORMAL ACCOMODATION, PERRL - ENT Exam ENT Exam: Mucous Membranes Moist, Normal Exam - Neck Exam Neck Exam: Full ROM, Normal Inspection. absent: Lymphadenopathy - Respiratory Exam Respiratory Exam: Decreased Breath Sounds - Cardiovascular Exam Cardiovascular Exam: REGULAR RHYTHM, +S1, +S2 - GI/Abdominal Exam GI & Abdominal Exam: Soft, Diminished Bowel Sounds - Rectal Exam Rectal Exam: Deferred
[2017-09-25] MEDS ORDERED: Potassium Chloride 20 mEq ER Tab PO STA (19:32)
[2017-09-26] MEDS: Albuterol-Ipratrop 3 mg / 0.5 (3 ml) UD INH SCH ×4 (01:44→20:52)
[2017-09-26] MEDS: MethylPREDNISolone 40 mg Vial IVP SCH ×3 (05:34→21:24)
[2017-09-26] MEDS: Fluticasone-Salmeterol 250-50mcg Diskus INH SCH ×2 (08:12→20:52)
[2017-09-26] MEDS ORDERED: Influenza Vaccine 60 mcg/0.5 mL SYR (4YR UP) IM ONE (10:00)
[2017-09-26] MEDS: Apap-Butalbital-Caffeine 325-50-40mg Tab PO PRN ×2 (11:31→21:23)
[2017-09-26] MEDS: Enoxaparin 40 mg Syringe SC SCH (11:31)
[2017-09-26] MEDS: Pantoprazole 40 mg EC Tab PO SCH (11:33)
[2017-09-26] MEDS: guaiFENesin 600 mg ER Tab PO SCH ×2 (13:02→17:29)
--- NOTE | 2017-09-26 17:38 | CP.PCM.PN ---
Subjective - Date & Time of Evaluation Date of Evaluation: 09/26/17 Time of Evaluation: 09:00 - Subjective Subjective: patient seen and examined Cough and shortness of breath is improving Afebrile Denies any chest pain Being treated for COPD exacerbation Continue IV steroids and nebulizer treatment Objective - Vital Signs/Intake and Output Vital Signs (last 24 hours): Temp Pulse Resp BP Pulse Ox 97.8 F 70 20 163/72 H 95 09/26/17 09:14 09/26/17 09:14 09/26/17 09:14 09/26/17 09:14 09/26/17 09:14 Intake and Output: 09/26/17 09/26/17 06:59 18:59 Intake Total 300 Balance 300 - Medications Medications: Current Medications Acetaminophen/Butalbital/Caffeine (Fioricet) 1 tab PO BID PRN PRN Reason: Headache Last Admin: 09/26/17 11:31 Dose: 1 tab Albuterol/Ipratropium (Duoneb 3 Mg/0.5 Mg (3 Ml) Ud) 3 ml INH RQ6 [facility] Last Admin: 09/26/17 13:42 Dose: 3 ml Enoxaparin Sodium (Lovenox) 40 mg SC DAILY [facility] Last Admin: 09/26/17 11:31 Dose: 40 mg Guaifenesin (Mucinex La) 600 mg PO BID [facility] Last Admin: 09/26/17 17:29 Dose: 600 mg Losartan Potassium (Cozaar) 100 mg PO DAILY [facility] Last Admin: 09/26/17 11:36 Dose: 100 mg Memantine (Namenda) 5 mg PO DAILY [facility] Last Admin: 09/26/17 11:30 Dose: 5 mg Methylprednisolone (Solu-Medrol) 40 mg IVP Q8 [facility] Last Admin: 09/26/17 13:02 Dose: 40 mg Montelukast Sodium (Singulair) 10 mg PO HS [facility] Last Admin: 09/25/17 22:14 Dose: 10 mg Moxifloxacin HCl (Avelox) 400 mg PO Q24H [facility] Last Admin: 09/25/17 21:00 Dose: 400 mg Pantoprazole Sodium (Protonix Ec Tab) 40 mg PO DAILY [facility] Last Admin: 09/26/17 11:33 Dose: 40 mg Potassium Chloride (K-Dur 20 Meq Er Tab) 40 meq PO ONCE ONE Stop: 09/26/17 18:01 Last Admin: 09/26/17 17:30 Dose: 40 meq Fluticasone/Salmeterol (Advair Diskus 250/50) 1 puff INH RQ12 [facility] Last Admin: 09/26/17 08:12 Dose: 1 puff Sertraline HCl (Zoloft) 50 mg PO HS [facility] Last Admin: 09/25/17 22:14 Dose: 50 mg - Labs Labs: 09/25/17 06:48 09/25/17 06:48 Assessment and Plan (1) Asthma exacerbation Status: Acute
[2017-09-26] MEDS ORDERED: Potassium Chloride 20 mEq ER Tab PO ONE (18:00)
[2017-09-26 20:31] LABS: AChR BLOCKING ANTIBODIES <15 % inhibit (<15)
[2017-09-27] MEDS: Albuterol-Ipratrop 3 mg / 0.5 (3 ml) UD INH SCH ×4 (01:40→19:11)
[2017-09-27] MEDS: Apap-Butalbital-Caffeine 325-50-40mg Tab PO PRN ×2 (06:01→23:16)
[2017-09-27] MEDS: MethylPREDNISolone 40 mg Vial IVP SCH ×3 (06:05→23:00)
[2017-09-27] MEDS: Fluticasone-Salmeterol 250-50mcg Diskus INH SCH ×2 (07:55→19:11)
[2017-09-27] MEDS: Pantoprazole 40 mg EC Tab PO SCH (10:07)
[2017-09-27] MEDS: Enoxaparin 40 mg Syringe SC SCH (10:08)
[2017-09-27] MEDS: guaiFENesin 600 mg ER Tab PO SCH ×2 (10:09→17:17)
--- NOTE | 2017-09-27 12:36 | CP.PCM.PN ---
Subjective - Date & Time of Evaluation Date of Evaluation: 09/27/17 Time of Evaluation: 07:30 - Subjective Subjective: Patient seen and examined at bedside. Patient is still short of breath and wheezing. Continue IV steroids and duonebs for wheezing. Cough is improving. Denies chest pain and fevers/chills. Objective - Vital Signs/Intake and Output Vital Signs (last 24 hours): Temp Pulse Resp BP Pulse Ox 97.9 F 82 20 145/67 94 L 09/27/17 08:22 09/27/17 08:22 09/27/17 08:22 09/27/17 08:22 09/27/17 08:22 Intake and Output: 09/27/17 09/27/17 06:59 18:59 Intake Total 400 Balance 400 - Medications Medications: Current Medications Acetaminophen/Butalbital/Caffeine (Fioricet) 1 tab PO BID PRN PRN Reason: Headache Last Admin: 09/27/17 06:01 Dose: 1 tab Albuterol/Ipratropium (Duoneb 3 Mg/0.5 Mg (3 Ml) Ud) 3 ml INH RQ6 [facility] Last Admin: 09/27/17 07:55 Dose: 3 ml Enoxaparin Sodium (Lovenox) 40 mg SC DAILY [facility] Last Admin: 09/27/17 10:08 Dose: 40 mg Guaifenesin (Mucinex La) 600 mg PO BID [facility] Last Admin: 09/27/17 10:09 Dose: 600 mg Losartan Potassium (Cozaar) 100 mg PO DAILY [facility] Last Admin: 09/27/17 10:07 Dose: 100 mg Memantine (Namenda) 5 mg PO DAILY [facility] Last Admin: 09/27/17 10:07 Dose: 5 mg Methylprednisolone (Solu-Medrol) 40 mg IVP Q8 [facility] Last Admin: 09/27/17 06:05 Dose: 40 mg Montelukast Sodium (Singulair) 10 mg PO HS [facility] Last Admin: 09/26/17 21:23 Dose: 10 mg Moxifloxacin HCl (Avelox) 400 mg PO Q24H [facility] Last Admin: 09/26/17 21:24 Dose: 400 mg Pantoprazole Sodium (Protonix Ec Tab) 40 mg PO DAILY [facility] Last Admin: 09/27/17 10:07 Dose: 40 mg Fluticasone/Salmeterol (Advair Diskus 250/50) 1 puff INH RQ12 [facility] Last Admin: 09/27/17 07:55 Dose: 1 puff Sertraline HCl (Zoloft) 50 mg PO HS [facility] Last Admin: 09/26/17 21:24 Dose: 50 mg - Labs Labs: 09/25/17 06:48 09/25/17 06:48 - Head Exam Head Exam: ATRAUMATIC, NORMAL INSPECTION, NORMOCEPHALIC - ENT Exam ENT Exam: Mucous Membranes Moist - Respiratory Exam Respiratory Exam: Rhonchi, Wheezes - Cardiovascular Exam Cardiovascular Exam: REGULAR RHYTHM Assessment and Plan (1) Asthma exacerbation Assessment & Plan: asthma exacerbation secondary to upper resp infection/bronchitis continue IV steroids, nebulizer treatment, antibiotics Status: Acute
--- NOTE | 2017-09-27 18:29 | CP.PCM.PN ---
Subjective - Date & Time of Evaluation Date of Evaluation: 09/27/17 Time of Evaluation: 07:00 - Subjective Subjective: clinically same Objective - Vital Signs/Intake and Output Vital Signs (last 24 hours): Temp Pulse Resp BP Pulse Ox 98.2 F 77 20 152/66 H 95 09/27/17 15:32 09/27/17 15:32 09/27/17 15:32 09/27/17 15:32 09/27/17 15:32 Intake and Output: 09/27/17 09/27/17 06:59 18:59 Intake Total 400 360 Balance 400 360 - Medications Medications: Current Medications Acetaminophen/Butalbital/Caffeine (Fioricet) 1 tab PO BID PRN PRN Reason: Headache Last Admin: 09/27/17 06:01 Dose: 1 tab Albuterol/Ipratropium (Duoneb 3 Mg/0.5 Mg (3 Ml) Ud) 3 ml INH RQ6 [facility] Last Admin: 09/27/17 13:58 Dose: 3 ml Enoxaparin Sodium (Lovenox) 40 mg SC DAILY [facility] Last Admin: 09/27/17 10:08 Dose: 40 mg Guaifenesin (Mucinex La) 600 mg PO BID [facility] Last Admin: 09/27/17 17:17 Dose: 600 mg Losartan Potassium (Cozaar) 100 mg PO DAILY [facility] Last Admin: 09/27/17 10:07 Dose: 100 mg Memantine (Namenda) 5 mg PO DAILY [facility] Last Admin: 09/27/17 10:07 Dose: 5 mg Methylprednisolone (Solu-Medrol) 40 mg IVP Q8 [facility] Last Admin: 09/27/17 13:42 Dose: 40 mg Montelukast Sodium (Singulair) 10 mg PO HS [facility] Last Admin: 09/26/17 21:23 Dose: 10 mg Moxifloxacin HCl (Avelox) 400 mg PO Q24H [facility] Last Admin: 09/26/17 21:24 Dose: 400 mg Pantoprazole Sodium (Protonix Ec Tab) 40 mg PO DAILY [facility] Last Admin: 09/27/17 10:07 Dose: 40 mg Fluticasone/Salmeterol (Advair Diskus 250/50) 1 puff INH RQ12 [facility] Last Admin: 09/27/17 07:55 Dose: 1 puff Sertraline HCl (Zoloft) 50 mg PO HS [facility] Last Admin: 09/26/17 21:24 Dose: 50 mg - Labs Labs: 09/25/17 06:48 09/25/17 06:48 - Constitutional Appears: Well - Head Exam Head Exam: ATRAUMATIC, NORMAL INSPECTION, NORMOCEPHALIC - Eye Exam Eye Exam: EOMI, Normal appearance, PERRL Pupil Exam: NORMAL ACCOMODATION, PERRL - ENT Exam ENT Exam: Mucous Membranes Moist, Normal Exam - Neck Exam Neck Exam: Full ROM, Normal Inspection. absent: Lymphadenopathy - Respiratory Exam Respiratory Exam: Decreased Breath Sounds - Cardiovascular Exam Cardiovascular Exam: REGULAR RHYTHM, +S1, +S2 - GI/Abdominal Exam GI & Abdominal Exam: Soft, Diminished Bowel Sounds - Rectal Exam Rectal Exam: Deferred
[2017-09-27] MEDS: Promethazine DM 6.25 mg-15 mg/5 ml Syrup PO PRN (19:11)
[2017-09-28] MEDS: Albuterol-Ipratrop 3 mg / 0.5 (3 ml) UD INH SCH ×4 (02:45→19:30)
[2017-09-28] MEDS: MethylPREDNISolone 40 mg Vial IVP SCH ×3 (06:20→21:48)
[2017-09-28] MEDS: Fluticasone-Salmeterol 250-50mcg Diskus INH SCH (07:29)
[2017-09-28] MEDS: Enoxaparin 40 mg Syringe SC SCH (10:02)
[2017-09-28] MEDS: guaiFENesin 600 mg ER Tab PO SCH (10:02)
[2017-09-28] MEDS: Pantoprazole 40 mg EC Tab PO SCH (10:02)
[2017-09-28] MEDS: Apap-Butalbital-Caffeine 325-50-40mg Tab PO PRN (10:03)
[2017-09-28] MEDS: Promethazine DM 6.25 mg-15 mg/5 ml Syrup PO PRN (10:04)
--- NOTE | 2017-09-28 11:52 | CP.PCM.PN ---
Subjective - Date & Time of Evaluation Date of Evaluation: 09/28/17 Time of Evaluation: 08:00 - Subjective Subjective: patient seen and examined Still complaining of cough, wheezing and shortness of breath Cough is mostly dry Afebrile No chest pain On antibiotics and IV steroids Objective - Vital Signs/Intake and Output Vital Signs (last 24 hours): Temp Pulse Resp BP Pulse Ox 98.4 F 74 20 155/68 H 96 09/28/17 07:42 09/28/17 07:42 09/28/17 07:42 09/28/17 07:42 09/28/17 07:42 Intake and Output: 09/28/17 09/28/17 06:59 18:59 Intake Total 600 Balance 600 - Medications Medications: Current Medications Acetaminophen/Butalbital/Caffeine (Fioricet) 1 tab PO BID PRN PRN Reason: Headache Last Admin: 09/28/17 10:03 Dose: 1 tab Albuterol/Ipratropium (Duoneb 3 Mg/0.5 Mg (3 Ml) Ud) 3 ml INH RQ6 [facility] Last Admin: 09/28/17 07:28 Dose: 3 ml Budesonide (Pulmicort Respules) 0.5 mg INH RQ12 [facility] Enoxaparin Sodium (Lovenox) 40 mg SC DAILY [facility] Last Admin: 09/28/17 10:02 Dose: 40 mg Losartan Potassium (Cozaar) 100 mg PO DAILY [facility] Last Admin: 09/28/17 10:02 Dose: 100 mg Memantine (Namenda) 5 mg PO DAILY [facility] Last Admin: 09/28/17 10:03 Dose: 5 mg Methylprednisolone (Solu-Medrol) 40 mg IVP Q8 [facility] Last Admin: 09/28/17 06:20 Dose: 40 mg Montelukast Sodium (Singulair) 10 mg PO HS [facility] Last Admin: 09/27/17 23:00 Dose: 10 mg Moxifloxacin HCl (Avelox) 400 mg PO Q24H [facility] Last Admin: 09/27/17 20:16 Dose: 400 mg Pantoprazole Sodium (Protonix Ec Tab) 40 mg PO DAILY [facility] Last Admin: 09/28/17 10:02 Dose: 40 mg Promethazine HCl/Codeine (Phenergan/Codeine Oral Syrup) 5 ml PO Q4 PRN PRN Reason: Cough Sertraline HCl (Zoloft) 50 mg PO HS [facility] Last Admin: 09/27/17 23:00 Dose: 50 mg - Labs Labs: 09/25/17 06:48 09/25/17 06:48 - Head Exam Head Exam: ATRAUMATIC, NORMOCEPHALIC - Eye Exam Eye Exam: Normal appearance - ENT Exam ENT Exam: Mucous Membranes Moist - Respiratory Exam Respiratory Exam: Rhonchi, Wheezes - Cardiovascular Exam Cardiovascular Exam: REGULAR RHYTHM - GI/Abdominal Exam GI & Abdominal Exam: Soft, Normal Bowel Sounds Assessment and Plan (1) Asthma exacerbation Assessment & Plan: Upper respiratory tract infection/bronchitis Continue IV steroids Avelox Phenergan With Codeine Add budesonide Followup chest x-ray Status: Acute
--- NOTE | 2017-09-28 17:49 | CP.PCM.PN ---
Subjective - Date & Time of Evaluation Date of Evaluation: 09/28/17 Time of Evaluation: 07:00 - Subjective Subjective: clinically same Objective - Vital Signs/Intake and Output Vital Signs (last 24 hours): Temp Pulse Resp BP Pulse Ox 98.4 F 74 20 155/68 H 96 09/28/17 07:42 09/28/17 07:42 09/28/17 07:42 09/28/17 07:42 09/28/17 07:42 Intake and Output: 09/28/17 09/28/17 06:59 18:59 Intake Total 600 700 Balance 600 700 - Medications Medications: Current Medications Acetaminophen/Butalbital/Caffeine (Fioricet) 1 tab PO BID PRN PRN Reason: Headache Last Admin: 09/28/17 10:03 Dose: 1 tab Albuterol/Ipratropium (Duoneb 3 Mg/0.5 Mg (3 Ml) Ud) 3 ml INH RQ6 [facility] Last Admin: 09/28/17 13:32 Dose: Not Given Budesonide (Pulmicort Respules) 0.5 mg INH RQ12 [facility] Enoxaparin Sodium (Lovenox) 40 mg SC DAILY [facility] Last Admin: 09/28/17 10:02 Dose: 40 mg Losartan Potassium (Cozaar) 100 mg PO DAILY [facility] Last Admin: 09/28/17 10:02 Dose: 100 mg Memantine (Namenda) 5 mg PO DAILY [facility] Last Admin: 09/28/17 10:03 Dose: 5 mg Methylprednisolone (Solu-Medrol) 40 mg IVP Q8 [facility] Last Admin: 09/28/17 13:12 Dose: 40 mg Montelukast Sodium (Singulair) 10 mg PO HS [facility] Last Admin: 09/27/17 23:00 Dose: 10 mg Moxifloxacin HCl (Avelox) 400 mg PO Q24H [facility] Last Admin: 09/27/17 20:16 Dose: 400 mg Pantoprazole Sodium (Protonix Ec Tab) 40 mg PO DAILY [facility] Last Admin: 09/28/17 10:02 Dose: 40 mg Promethazine HCl/Codeine (Phenergan/Codeine Oral Syrup) 5 ml PO Q4 PRN PRN Reason: Cough Sertraline HCl (Zoloft) 50 mg PO HS [facility] Last Admin: 09/27/17 23:00 Dose: 50 mg - Labs Labs: 09/25/17 06:48 09/25/17 06:48 - Constitutional Appears: Well - Head Exam Head Exam: ATRAUMATIC, NORMAL INSPECTION, NORMOCEPHALIC - Eye Exam Eye Exam: EOMI, Normal appearance, PERRL Pupil Exam: NORMAL ACCOMODATION, PERRL - ENT Exam ENT Exam: Mucous Membranes Moist, Normal Exam - Neck Exam Neck Exam: Full ROM, Normal Inspection. absent: Lymphadenopathy - Respiratory Exam Respiratory Exam: Decreased Breath Sounds - Cardiovascular Exam Cardiovascular Exam: REGULAR RHYTHM, +S1, +S2 - GI/Abdominal Exam GI & Abdominal Exam: Soft, Diminished Bowel Sounds - Rectal Exam Rectal Exam: Deferred
[2017-09-28] MEDS: Budesonide 0.5 mg/2 ml Inhal Susp UD INH SCH (19:31)
[2017-09-28] MEDS: Promethazine/Cod 6.25mg-10mg/5ml Syr UD PO PRN (22:14)
[2017-09-29] MEDS: MethylPREDNISolone 40 mg Vial IVP SCH ×3 (05:25→21:26)
[2017-09-29] MEDS: Budesonide 0.5 mg/2 ml Inhal Susp UD INH SCH ×2 (07:38→19:05)
[2017-09-29] MEDS: Enoxaparin 40 mg Syringe SC SCH (09:53)
[2017-09-29] MEDS: Pantoprazole 40 mg EC Tab PO SCH (09:54)
[2017-09-29] MEDS: Apap-Butalbital-Caffeine 325-50-40mg Tab PO PRN ×2 (09:55→21:26)
--- NOTE | 2017-09-29 13:27 | CP.PCM.PN ---
Subjective - Date & Time of Evaluation Date of Evaluation: 09/29/17 Time of Evaluation: 07:00 - Subjective Subjective: clinically same Objective - Vital Signs/Intake and Output Vital Signs (last 24 hours): Temp Pulse Resp BP Pulse Ox 97.6 F 81 20 156/62 H 96 09/29/17 08:16 09/29/17 08:16 09/29/17 08:16 09/29/17 08:16 09/29/17 08:16 Intake and Output: 09/29/17 09/29/17 06:59 18:59 Intake Total 150 Balance 150 - Medications Medications: Current Medications Acetaminophen/Butalbital/Caffeine (Fioricet) 1 tab PO BID PRN PRN Reason: Headache Last Admin: 09/29/17 09:55 Dose: 1 tab Budesonide (Pulmicort Respules) 0.5 mg INH RQ12 [facility] Last Admin: 09/29/17 07:38 Dose: 0.5 mg Enoxaparin Sodium (Lovenox) 40 mg SC DAILY [facility] Last Admin: 09/29/17 09:53 Dose: 40 mg Losartan Potassium (Cozaar) 100 mg PO DAILY [facility] Last Admin: 09/29/17 09:57 Dose: 100 mg Memantine (Namenda) 5 mg PO DAILY [facility] Last Admin: 09/29/17 09:55 Dose: 5 mg Methylprednisolone (Solu-Medrol) 40 mg IVP Q8 [facility] Last Admin: 09/29/17 05:25 Dose: 40 mg Montelukast Sodium (Singulair) 10 mg PO HS [facility] Last Admin: 09/28/17 21:47 Dose: 10 mg Moxifloxacin HCl (Avelox) 400 mg PO Q24H [facility] Last Admin: 09/28/17 20:46 Dose: 400 mg Pantoprazole Sodium (Protonix Ec Tab) 40 mg PO DAILY [facility] Last Admin: 09/29/17 09:54 Dose: 40 mg Promethazine HCl/Codeine (Phenergan/Codeine Oral Syrup) 5 ml PO Q4 PRN PRN Reason: Cough Last Admin: 09/28/17 22:14 Dose: 5 ml Sertraline HCl (Zoloft) 50 mg PO HS [facility] Last Admin: 09/28/17 21:47 Dose: 50 mg - Labs Labs: 09/25/17 06:48 09/25/17 06:48 - Constitutional Appears: Well - Head Exam Head Exam: ATRAUMATIC, NORMAL INSPECTION, NORMOCEPHALIC - Eye Exam Eye Exam: EOMI, Normal appearance, PERRL Pupil Exam: NORMAL ACCOMODATION, PERRL - ENT Exam ENT Exam: Mucous Membranes Moist, Normal Exam - Neck Exam Neck Exam: Full ROM, Normal Inspection. absent: Lymphadenopathy - Respiratory Exam Respiratory Exam: Decreased Breath Sounds - Cardiovascular Exam Cardiovascular Exam: REGULAR RHYTHM, +S1, +S2 - GI/Abdominal Exam GI & Abdominal Exam: Soft, Diminished Bowel Sounds - Rectal Exam Rectal Exam: Deferred
[2017-09-29] MEDS: Promethazine/Cod 6.25mg-10mg/5ml Syr UD PO PRN ×3 (13:38→21:59)
[2017-09-29 15:15] LABS: ACETYLCHOLINE REC BIND AB 2.18 nmol/L (<=0.30)
--- NOTE | 2017-09-29 18:54 | CP.PCM.PN ---
Subjective - Date & Time of Evaluation Date of Evaluation: 09/29/17 Time of Evaluation: 15:00 - Subjective Subjective: patient seen and examined Cough and shortness of breath much improved Afebrile Denies any chest pain Switch to p.o. prednisone in am switch to p.o. antibiotics Continue antitussive Objective - Vital Signs/Intake and Output Vital Signs (last 24 hours): Temp Pulse Resp BP Pulse Ox 97 F L 75 20 166/68 H 94 L 09/29/17 15:15 09/29/17 15:15 09/29/17 15:15 09/29/17 15:15 09/29/17 15:15 Intake and Output: 09/29/17 09/29/17 06:59 18:59 Intake Total 750 Balance 750 - Medications Medications: Current Medications Acetaminophen/Butalbital/Caffeine (Fioricet) 1 tab PO BID PRN PRN Reason: Headache Last Admin: 09/29/17 09:55 Dose: 1 tab Budesonide (Pulmicort Respules) 0.5 mg INH RQ12 [facility] Last Admin: 09/29/17 07:38 Dose: 0.5 mg Enoxaparin Sodium (Lovenox) 40 mg SC DAILY [facility] Last Admin: 09/29/17 09:53 Dose: 40 mg Losartan Potassium (Cozaar) 100 mg PO DAILY [facility] Last Admin: 09/29/17 09:57 Dose: 100 mg Memantine (Namenda) 5 mg PO DAILY [facility] Last Admin: 09/29/17 09:55 Dose: 5 mg Methylprednisolone (Solu-Medrol) 40 mg IVP Q8 [facility] Last Admin: 09/29/17 13:35 Dose: 40 mg Montelukast Sodium (Singulair) 10 mg PO HS [facility] Last Admin: 09/28/17 21:47 Dose: 10 mg Moxifloxacin HCl (Avelox) 400 mg PO Q24H [facility] Last Admin: 09/28/17 20:46 Dose: 400 mg Pantoprazole Sodium (Protonix Ec Tab) 40 mg PO DAILY [facility] Last Admin: 09/29/17 09:54 Dose: 40 mg Promethazine HCl/Codeine (Phenergan/Codeine Oral Syrup) 5 ml PO Q4 PRN PRN Reason: Cough Last Admin: 09/29/17 17:43 Dose: 5 ml Sertraline HCl (Zoloft) 50 mg PO HS [facility] Last Admin: 09/28/17 21:47 Dose: 50 mg - Labs Labs: 09/25/17 06:48 09/25/17 06:48 Assessment and Plan (1) Asthma exacerbation Status: Acute
[2017-09-30] MEDS: Promethazine/Cod 6.25mg-10mg/5ml Syr UD PO PRN ×2 (05:42→10:40)
[2017-09-30] MEDS: MethylPREDNISolone 40 mg Vial IVP SCH (05:42)
[2017-09-30 08:17] LABS: ALB/GLOB RATIO 1.1 (1.0-2.1); ALBUMIN 3.8 g/dL (3.5-5.0); ALT/SGPT 132 U/L (9-52); AST/SGOT 93 U/L (14-36); BASO # 0.1 K/uL (0.0-0.2); BASO % 0.4 % (0.0-2.0); BLOOD UREA NITROGEN 27 mg/dL (7-17); CALCIUM 9.6 mg/dl (8.6-10.4); EOS % 0.1 % (0.0-4.0); GFR AFRICAN-AMERICAN > 60; GFR NON-AFRICAN AMERICAN > 60; HEMOGLOBIN 13.9 g/dL (11.0-16.0); LYMPH # 1.4 K/uL (1.0-4.3); LYMPH % 8.9 % (20.0-40.0); MEAN CELL VOLUME 88.7 fL (81.0-99.0); MEAN CORPUSCULAR HEMOGLOBIN 29.2 pg (27.0-31.0); MEAN CORPUSCULAR HGB CONC 32.9 g/dL (33.0-37.0); MEAN PLATELET VOLUME 10.3 fL (7.2-11.7); MONO # 0.8 K/uL (0.0-0.8); MONO % 5.3 % (0.0-10.0); NEUT # 13.4 K/uL (1.8-7.0); NEUT % 85.3 % (50.0-75.0); PLATELET COUNT 318 K/uL (130-400); RBC 4.76 Mil/uL (3.80-5.20); RED CELL DISTRIBUTION WIDTH 13.6 % (11.5-14.5); WHITE BLOOD COUNT 15.7 K/uL (4.8-10.8)
[2017-09-30] MEDS: Budesonide 0.5 mg/2 ml Inhal Susp UD INH SCH ×2 (09:21→19:11)
[2017-09-30] MEDS: Pantoprazole 40 mg EC Tab PO SCH (10:40)
[2017-09-30] MEDS: Apap-Butalbital-Caffeine 325-50-40mg Tab PO PRN ×2 (10:40→17:45)
[2017-09-30] MEDS: Enoxaparin 40 mg Syringe SC SCH (10:40)
[2017-09-30 10:41] LABS: BANDS 2 % (0-2); LYMPHOCYTE 4 % (20-40); MONOCYTE 5 % (0-10); NEUTROPHIL 89 % (50-75); PLATELET ESTIMATE NORMAL (NORMAL); TOTAL CELLS COUNTED 100
[2017-09-30 10:42] LABS: LARGE PLATELETS PRESENT
--- NOTE | 2017-09-30 13:00 | PN ---
DATE: 09/30/2017 TIME OF EVALUATION: 7:05 a.m. NEUROLOGICAL PROBLEMS: Neuromuscular junctional disease. PHYSICAL EXAMINATION: VITAL SIGNS: Blood pressure 168/78, mean artery pressure of 108, respiratory rate 18, temperature 98 degree Fahrenheit, pulse 63 and regular. The patient has been continuing treatment with antibiotics for her pneumonia. The patient does have neuromuscular junctional disease who was advised to take Mestinon in the past. The patient stopped it herself for a few months. There is a recent workup consistent with acetylcholine receptor binding antibodies were higher, which is 2.18. The patient is advised to continue Mestinon. At present, the patient does not have ptosis or diplopia. However, her existing problem could have been worsening her existing neuromuscular junctional disease. The patient agrees to continue the medication. In the near future, the patient's medication should be addressed, particularly avoid any medication to interfere neuromuscular junctions. If medically stable, the patient can be discharged and should have followup visit with me as outpatient. Shlomo Novak MD
--- NOTE | 2017-09-30 13:44 | CP.PCM.PN ---
Subjective - Date & Time of Evaluation Date of Evaluation: 09/30/17 Time of Evaluation: 13:44 - Subjective Subjective: Alert, orientedx3, has cough and sob on room air. Denies chest pains. Objective - Vital Signs/Intake and Output Vital Signs (last 24 hours): Temp Pulse Resp BP Pulse Ox 98.4 F 64 20 116/64 97 09/30/17 08:26 09/30/17 08:26 09/30/17 08:26 09/30/17 08:26 09/30/17 08:26 Intake and Output: 09/30/17 09/30/17 06:59 18:59 Intake Total 450 Balance 450 - Medications Medications: Current Medications Acetaminophen/Butalbital/Caffeine (Fioricet) 1 tab PO BID PRN PRN Reason: Headache Last Admin: 09/30/17 10:40 Dose: 1 tab Albuterol/Ipratropium (Duoneb 3 Mg/0.5 Mg (3 Ml) Ud) 3 ml INH RQ6 [facility] Budesonide (Pulmicort Respules) 0.5 mg INH RQ12 [facility] Last Admin: 09/30/17 09:21 Dose: 0.5 mg Enoxaparin Sodium (Lovenox) 40 mg SC DAILY [facility] Last Admin: 09/30/17 10:40 Dose: 40 mg Guaifenesin/Dextromethorphan (Robitussin Dm) 10 ml PO Q6H [facility] Losartan Potassium (Cozaar) 100 mg PO DAILY [facility] Last Admin: 09/30/17 10:40 Dose: 100 mg Memantine (Namenda) 5 mg PO DAILY [facility] Last Admin: 09/30/17 10:40 Dose: 5 mg Montelukast Sodium (Singulair) 10 mg PO HS [facility] Last Admin: 09/29/17 21:26 Dose: 10 mg Moxifloxacin HCl (Avelox) 400 mg PO Q24H [facility] Last Admin: 09/29/17 21:26 Dose: 400 mg Pantoprazole Sodium (Protonix Ec Tab) 40 mg PO DAILY [facility] Last Admin: 09/30/17 10:40 Dose: 40 mg Promethazine HCl/Codeine (Phenergan/Codeine Oral Syrup) 5 ml PO Q4 PRN PRN Reason: Cough Last Admin: 09/30/17 10:40 Dose: 5 ml Pyridostigmine [place] (Mestinon Tab) 60 mg PO BID [facility] Last Admin: 09/30/17 10:40 Dose: 60 mg Sertraline HCl (Zoloft) 50 mg PO HS [facility] Last Admin: 09/29/17 21:26 Dose: 50 mg - Labs Labs: 09/30/17 07:52 09/30/17 07:52 Assessment and Plan - Assessment and Plan (Free Text) Assessment: Patient admitted with asthma exacerbation, seen and examined. Alert and orientedx3, still with cough on and off. Desats to 87% on room air with shortness of breath. With 2 liter oxygen via nc saturation increases to 95%. Discussed with DR Arboleda, advised for home oxygen to use at 2 liter via nasal canula. Will plan for discharge with home o2 as per DR Rose Estrada.
[2017-09-30] MEDS: guaiFENesin DM 200 mg-20 mg/10 ml UD PO SCH ×3 (13:53→19:30)
--- NOTE | 2017-09-30 13:55 | CP.PCM.PN ---
Subjective - Date & Time of Evaluation Date of Evaluation: 09/30/17 Time of Evaluation: 09:00 - Subjective Subjective: Patient seen and examined Cough shortness of breath and wheezing much improved Saturation 87% room air Afebrile Objective - Vital Signs/Intake and Output Vital Signs (last 24 hours): Temp Pulse Resp BP Pulse Ox 98.4 F 64 20 116/64 97 09/30/17 08:26 09/30/17 08:26 09/30/17 08:26 09/30/17 08:26 09/30/17 08:26 Intake and Output: 09/30/17 09/30/17 06:59 18:59 Intake Total 450 Balance 450 - Medications Medications: Current Medications Acetaminophen/Butalbital/Caffeine (Fioricet) 1 tab PO BID PRN PRN Reason: Headache Last Admin: 09/30/17 10:40 Dose: 1 tab Albuterol/Ipratropium (Duoneb 3 Mg/0.5 Mg (3 Ml) Ud) 3 ml INH RQ6 [facility] Budesonide (Pulmicort Respules) 0.5 mg INH RQ12 [facility] Last Admin: 09/30/17 09:21 Dose: 0.5 mg Enoxaparin Sodium (Lovenox) 40 mg SC DAILY [facility] Last Admin: 09/30/17 10:40 Dose: 40 mg Guaifenesin/Dextromethorphan (Robitussin Dm) 10 ml PO Q6H [facility] Losartan Potassium (Cozaar) 100 mg PO DAILY [facility] Last Admin: 09/30/17 10:40 Dose: 100 mg Memantine (Namenda) 5 mg PO DAILY [facility] Last Admin: 09/30/17 10:40 Dose: 5 mg Montelukast Sodium (Singulair) 10 mg PO HS [facility] Last Admin: 09/29/17 21:26 Dose: 10 mg Moxifloxacin HCl (Avelox) 400 mg PO Q24H [facility] Last Admin: 09/29/17 21:26 Dose: 400 mg Pantoprazole Sodium (Protonix Ec Tab) 40 mg PO DAILY [facility] Last Admin: 09/30/17 10:40 Dose: 40 mg Promethazine HCl/Codeine (Phenergan/Codeine Oral Syrup) 5 ml PO Q4 PRN PRN Reason: Cough Last Admin: 09/30/17 10:40 Dose: 5 ml Pyridostigmine [place] (Mestinon Tab) 60 mg PO BID [facility] Last Admin: 09/30/17 10:40 Dose: 60 mg Sertraline HCl (Zoloft) 50 mg PO [facility] Last Admin: 09/29/17 21:26 Dose: 50 mg - Labs Labs: 09/30/17 07:52 09/30/17 07:52 - Head Exam Head Exam: ATRAUMATIC, NORMOCEPHALIC - ENT Exam ENT Exam: Mucous Membranes Moist - Neck Exam Neck Exam: Normal Inspection - Respiratory Exam Respiratory Exam: Clear to Ausculation Bilateral - Cardiovascular Exam Cardiovascular Exam: REGULAR RHYTHM - GI/Abdominal Exam GI & Abdominal Exam: Soft Assessment and Plan (1) Asthma exacerbation Assessment & Plan: Discharge patient home on home oxygen, prednisone in tapering dose, p.o. Avelox , albuterol Followup in the office Status: Acute
--- NOTE | 2017-09-30 16:43 | CP.PCM.PN ---
Subjective - Date & Time of Evaluation Date of Evaluation: 09/30/17 Time of Evaluation: 07:00 - Subjective Subjective: clinically same Objective - Vital Signs/Intake and Output Vital Signs (last 24 hours): Temp Pulse Resp BP Pulse Ox 98.4 F 64 20 116/64 97 09/30/17 08:26 09/30/17 13:57 09/30/17 08:26 09/30/17 13:57 09/30/17 13:57 Intake and Output: 09/30/17 09/30/17 06:59 18:59 Intake Total 450 500 Balance 450 500 - Medications Medications: Current Medications Acetaminophen/Butalbital/Caffeine (Fioricet) 1 tab PO BID PRN PRN Reason: Headache Last Admin: 09/30/17 10:40 Dose: 1 tab Albuterol/Ipratropium (Duoneb 3 Mg/0.5 Mg (3 Ml) Ud) 3 ml INH RQ6 [facility] Budesonide (Pulmicort Respules) 0.5 mg INH RQ12 [facility] Last Admin: 09/30/17 09:21 Dose: 0.5 mg Enoxaparin Sodium (Lovenox) 40 mg SC DAILY [facility] Last Admin: 09/30/17 10:40 Dose: 40 mg Guaifenesin/Dextromethorphan (Robitussin Dm) 10 ml PO Q6H [facility] Last Admin: 09/30/17 15:32 Dose: 10 ml Losartan Potassium (Cozaar) 100 mg PO DAILY [facility] Last Admin: 09/30/17 10:40 Dose: 100 mg Memantine (Namenda) 5 mg PO DAILY [facility] Last Admin: 09/30/17 10:40 Dose: 5 mg Montelukast Sodium (Singulair) 10 mg PO HS [facility] Last Admin: 09/29/17 21:26 Dose: 10 mg Moxifloxacin HCl (Avelox) 400 mg PO Q24H [facility] Last Admin: 09/29/17 21:26 Dose: 400 mg Pantoprazole Sodium (Protonix Ec Tab) 40 mg PO DAILY [facility] Last Admin: 09/30/17 10:40 Dose: 40 mg Promethazine HCl/Codeine (Phenergan/Codeine Oral Syrup) 5 ml PO Q4 PRN PRN Reason: Cough Last Admin: 09/30/17 10:40 Dose: 5 ml Pyridostigmine [place] (Mestinon Tab) 60 mg PO BID [facility] Last Admin: 09/30/17 10:40 Dose: 60 mg Sertraline HCl (Zoloft) 50 mg PO [facility] Last Admin: 09/29/17 21:26 Dose: 50 mg - Labs Labs: 09/30/17 07:52 09/30/17 07:52 - Constitutional Appears: Well - Head Exam Head Exam: ATRAUMATIC, NORMAL INSPECTION, NORMOCEPHALIC - Eye Exam Eye Exam: EOMI, Normal appearance, PERRL Pupil Exam: NORMAL ACCOMODATION, PERRL - ENT Exam ENT Exam: Mucous Membranes Moist, Normal Exam - Neck Exam Neck Exam: Full ROM, Normal Inspection. absent: Lymphadenopathy - Respiratory Exam Respiratory Exam: Decreased Breath Sounds - Cardiovascular Exam Cardiovascular Exam: REGULAR RHYTHM, +S1, +S2 - GI/Abdominal Exam GI & Abdominal Exam: Soft, Diminished Bowel Sounds - Rectal Exam Rectal Exam: Deferred
[2017-09-30] MEDS: Albuterol-Ipratrop 3 mg / 0.5 (3 ml) UD INH SCH (19:11)
[2017-10-01 00:30] VITALS: RESP 20
[2017-10-01] MEDS: Albuterol-Ipratrop 3 mg / 0.5 (3 ml) UD INH SCH ×2 (01:27→08:19)
[2017-10-01] MEDS: guaiFENesin DM 200 mg-20 mg/10 ml UD PO SCH ×3 (02:00→14:51)
[2017-10-01 07:21] VITALS: O2SAT 95
[2017-10-01 07:33] VITALS: BP 165/75; PULSE 62; TEMP 97.5
[2017-10-01] MEDS: Budesonide 0.5 mg/2 ml Inhal Susp UD INH SCH (08:20)
[2017-10-01] MEDS: Pantoprazole 40 mg EC Tab PO SCH (11:15)
[2017-10-01] MEDS: Apap-Butalbital-Caffeine 325-50-40mg Tab PO PRN (11:16)
[2017-10-01] MEDS: Enoxaparin 40 mg Syringe SC SCH (11:16)
--- NOTE | 2017-10-01 11:56 | PN ---
DATE: 10/01/2017 SUBJECTIVE: The patient has myasthenia gravis, patient . OBJECTIVE: VITAL SIGNS: Blood pressure 160/68, mean artery pressure of 98, respiratory rate 16, temperature afebrile. The patient slept good, breathing is comfortable, less coughing. The patient is tolerating Mestinon twice a day at present. Mild ptosis of his left eye noted with extraocular movement, no diplopia. The patient should continue Mestinon for now, the dose can be adjusted as she tolerates so that can be done as outpatient. When medically stable, the patient can be discharged and should have followup visit with me as outpatient. Shlomo Novak MD
== END 2017-10-01 14:25 | disposition home or self-care (01) | DRG 190 ==
LOC: C.ER 10:19 → C.9E 14:55 → C.3T 19:13
PROVIDERS: ADMIT Internal Medicine Nephrology; ATTEND Internal Medicine Nephrology
DX: J44.1 Chronic obstructive pulmonary disease with (acute) exacerbation (principal); G70.01 Myasthenia gravis with (acute) exacerbation; J45.901 Unspecified asthma with (acute) exacerbation; I10 Essential (primary) hypertension; M81.0 Age-related osteoporosis without current pathological fracture; Z87.891 Personal history of nicotine dependence; Z86.73 Personal history of transient ischemic attack (TIA), and cerebral infarction without residual deficits; Z87.11 Personal history of peptic ulcer disease; Z90.49 Acquired absence of other specified parts of digestive tract; Z91.14 Patient's other noncompliance with medication regimen

== ENCOUNTER 2018-07-09 20:04 | Inpatient (IN) | payer MEDICARE, MEDICAID ==
[2018-07-09 20:04] VITALS: BMI 28.5
[2018-07-09] MEDS ORDERED: Albuterol-Ipratrop 3 mg / 0.5 (3 ml) UD ONE (20:26)
[2018-07-09] MEDS ORDERED: Albuterol 0.083% Inhal Sol (2.5 mg/3 mL) UD IH STA (20:53)
--- NOTE | 2018-07-09 20:54 | C.PDOC ---
History Of Present Illness 72 year old female with PMHx of COPD presents to the ED BIB[facility] for evaluation of chest pain and difficulty breathing for the past several days. Associated symptoms include coughing with phlegm, chest tightness, and wheezing. Reports el chilel used Albuterol with her inhaler and nebulizer with no relief. EMS administered Neb and SoluMedrol treatments en route. Time Seen by Provider: 07/09/18 20:36 Chief Complaint (Nursing): Shortness Of Breath History Per: Patient, EMS History/Exam Limitations: no limitations Onset/Duration Of Symptoms: Days Current Symptoms Are (Timing): Still Present Initiating Event: Upper Respiratory Illness Quality: Tightness Current Respiratory Medications: Albuterol Associated Symptoms: Chest Pain, Productive Cough. denies: Fever, Chills, Sweating, Ankle/Leg Swelling Past Medical History Reviewed: Historical Data, Nursing Documentation, Vital Signs Vital Signs: Last Vital Signs Temp 98.6 F 07/09/18 20:14 Pulse 106 H 07/09/18 20:15 Resp 22 07/09/18 20:15 BP 167/64 H 07/09/18 20:15 Pulse Ox 100 07/09/18 20:15 - Medical History PMH: Asthma, Back Problems, Cardia Arrhythmia, COPD (Asthma), Emphysema, Gastritis, Gastrointestinal Ulcer, HTN, Osteoporosis Denies: Chronic Kidney Disease Surgical History: Appendectomy, Cholecystectomy, Endoscopy - [facility] Procedures ESOPHAGOGASTRODUODENOSCOPY [EGD] W/CLOSED BIOPSY (10/15/13) Family History: States: No Known Family Hx - Social History Hx Tobacco Use: No Hx Alcohol Use: No Hx Substance Use: No - Immunization History Hx Tetanus Toxoid Vaccination: No Hx Influenza Vaccination: Yes Hx Pneumococcal Vaccination: No Review Of Systems Constitutional: Negative for: Fever, Chills Respiratory: Positive for: Cough, Shortness of Breath, Sputum, Wheezing Gastrointestinal: Negative for: Nausea, Vomiting, Diarrhea Physical Exam - Physical Exam Appears: Non-toxic Skin: Warm, Dry Head: Normacephalic Eye(s): bilateral: Normal Inspection Nose: Normal Oral Mucosa: Moist Neck: Normal ROM, Trachea Midline, Supple Chest: Symmetrical Cardiovascular: Other (Tachycardic ) Respiratory: Rhonchi (Mild ), Wheezing (inspiratory and expiratory wheezing), Other (tachypneic ) Gastrointestinal/Abdominal: Soft, No Tenderness Extremity: Normal ROM Extremity: Bilateral: Atraumatic, No Pedal Edema, Normal Color And Temperature, Normal ROM Neurological/Psych: Oriented x3, Normal Speech Gait: Steady ED Course And Treatment - Laboratory Results Result Diagrams: 07/09/18 21:22 07/09/18 22:17 Lab Interpretation: Abnormal (K+ 2.9, HCO3 93 Glucose 222, Normal troponin and BNP) ECG: Interpreted By Me ECG Rhythm: Sinus Tachycardia (with old septal infarct) ECG Interpretation: No Acute Changes O2 Sat by Pulse Oximetry: 100 Pulse Ox Interpretation: Normal - Radiology CXR: Interpreted by Me CXR Interpretation: Yes: Other (chronic interstitial changes) Reevaluation Time: 23:04 Reassessment Condition: Improved - Physician Consult Information Time Consulting Physician Contacted: 23:18 Physician Contacted: Nuha Oquendo Outcome Of Conversation: Patient to be admitted for exacerbation of COPD. Medical Decision Making Medical Decision Making: Plan - EKG - Bloodwork - Blood cultures - CXR - Nebulizer treatment Disposition - Disposition Disposition: HOSPITALIZED Disposition Time: 23:19 Condition: IMPROVED - POA Present On Arrival: None - Clinical Impression Clinical Impression: Chronic congestive heart failure, COPD exacerbation - Scribe Statement The provider has reviewed the documentation as recorded by the Scribe Jenna Grimes All medical record entries made by the Scribe were at my direction and personally dictated by me. I have reviewed the chart and agree that the record accurately reflects my personal performance of the history, physical exam, medical decision making, and the department course for this patient. I have also personally directed, reviewed, and agree with the discharge instructions and disposition.
[2018-07-09] MEDS ORDERED: Albuterol 0.083% Inhal Sol (2.5 mg/3 mL) UD ONE (20:58)
[2018-07-09] MEDS ORDERED: Albuterol-Ipratrop 3 mg / 0.5 (3 ml) UD INH STA (21:20)
[2018-07-09 21:28] LABS: BASO % 0.4 % (0.0-2.0); EOS # 0.1 K/uL (0.0-0.7); EOS % 0.6 % (0.0-4.0); HEMOGLOBIN 13.9 g/dL (11.0-16.0); LYMPH # 1.4 K/uL (1.0-4.3); LYMPH % 15.3 % (20.0-40.0); MEAN CORPUSCULAR HEMOGLOBIN 29.5 pg (27.0-31.0); MEAN CORPUSCULAR HGB CONC 33.1 g/dL (33.0-37.0); MEAN PLATELET VOLUME 9.3 fL (7.2-11.7); MONO # 0.4 K/uL (0.0-0.8); MONO % 4.5 % (0.0-10.0); NEUT # 7.4 K/uL (1.8-7.0); NEUT % 79.2 % (50.0-75.0); RBC 4.72 Mil/uL (3.80-5.20); RED CELL DISTRIBUTION WIDTH 13.4 % (11.5-14.5); WHITE BLOOD COUNT 9.4 K/uL (4.8-10.8)
[2018-07-09 22:38] LABS: ALB/GLOB RATIO 1.3 (1.0-2.1); ALBUMIN 4.3 g/dL (3.5-5.0); ALT/SGPT 23 U/L (9-52); AST/SGOT 29 U/L (14-36); BLOOD UREA NITROGEN 16 mg/dL (7-17); CALCIUM 8.7 mg/dl (8.6-10.4); GFR NON-AFRICAN AMERICAN > 60
[2018-07-09] MEDS ORDERED: Potassium Chloride 20 mEq ER Tab PO STA (22:40)
[2018-07-09 22:50] LABS: B-TYPE NATRIURETIC PEPTIDE 90.5 pg/mL (0-900)
[2018-07-09] MEDS ORDERED: Potassium Chloride 20 mEq ER Tab PO ONE ×2 (22:59→23:00)
[2018-07-10] MEDS: Albuterol-Ipratrop 3 mg / 0.5 (3 ml) UD INH SCH ×7 (00:02→19:40)
[2018-07-10] MEDS ORDERED: Albuterol-Ipratrop 3 mg / 0.5 (3 ml) UD ONE ×4 (03:07→12:16)
[2018-07-10] MEDS ORDERED: HYDROCHLOROTHIAZIDE PO SCH (10:00)
[2018-07-10] MEDS ORDERED: NAMENDA PO SCH (10:00)
[2018-07-10] MEDS ORDERED: AMLODIPINE PO SCH (10:00)
[2018-07-10] MEDS ORDERED: DEXLANSOPRAZOLE PO SCH (10:00)
[2018-07-10] MEDS ORDERED: OLMESARTAN PO SCH (10:00)
--- NOTE | 2018-07-10 10:01 | RAD ---
Chest x-ray single frontal view HISTORY: Shortness of breath. COMPARISON: 09/23/2017 FINDINGS: Biapical pleural thickening with upper lobe granulomatous changes. Mild venous congestion. Right hilar prominence. Bibasilar breast and nipple shadows. Nodular densities at the right lung base may represent vessels on end. Atherosclerotic calcification at the aortic knob. Heart size within normal limits. Degenerative changes in the spine and shoulders. Impression: Biapical pleural thickening with upper lobe granulomatous changes. Mild venous congestion. Right hilar prominence. Bibasilar breast and nipple shadows. Nodular densities at the right lung base may represent vessels on end. Atherosclerotic calcification at the aortic knob.
[2018-07-10] MEDS: Pantoprazole 40 mg EC Tab PO SCH (11:50)
--- NOTE | 2018-07-10 14:49 | CP.PCM.HP ---
History of Present Illness - History of Present Illness History of Present Illness: COMPREHENSIVE CONSULT HPI Patient has a history of COPD. For the last couple of days patient is complaining of cough expectoration and wheezing has been using nebulizer and in haler [id number] without much improvement. On the day of admission patient become acutely short of breath and presented to [facility] ER and root on the ambulance patient was given Solu-Medrol. Patient was given multiple bronchodilators and nebulizer in the ER without much improvement and patient has been admitted for further treatment In September 2017 patient was admitted and [facility] for similar complaint. During that time patient also had some GI problems and had endoscopy showed some gastric ulcer. There was no any evidence of GI bleeding PAST HIST. PERSONAL HIST: Smoking. N Alcohol. N Allergy N Travel_- . FAMILY HIST : ROS : Constitutional: Negative for weight change, chills, night sweats, fatigue and usage of assist device. Eyes: Negative for redness, swelling, itching, discharge, vision changes, blurry vision, double vision, glaucoma, cataracts, Ears: Negative for hearing loss, ringing, , tinnitus, vertigo Nose: Negative for rhinorrhea, stuffiness, sniffing, itching, postnasal drip, discoloration, nasal congestion and epistaxis. Throat: Negative for throat clearing, sore throat, hoarseness, difficulty swallowing and difficulty speaking. Respiratory: Negative for, snoring at night, Cardiovascular: Negative for chest pain, palpitations, orthopnea, PND, Edema of legs, leg cramps, angina, claudication, , irregular heartbeat, Neurology: Negative for irritability, muscle weakness, numbness and tingling, seizures, tremors, migraines, slurred speech, syncope, memory loss, mood changes, recurrent headaches Gastrointestinal: Negative for difficulty swallowing, diarrhea, constipation, black stools, rectal bleeding, nausea, flatulence, reflux, poor appetite, changes in bowel habits, abdominal pain Genitourinary: Negative for frequent urination, hematuria, discharge, incontinence, urinary retention, frequent UTI, Psychiatric: Negative for depression, anxiety/panic, suicidal tendencies, Musculoskeletal: Negative for swollen joints, back pain, , neck pain, morning stiffness of joints, . Skin: Negative for rash, ulcers, itching, dry skin and pigmented lesions. P/E: Constitutional: Appears stated age and in no apparent distress. Head: Normocephalic. Ears: External ear canals patent without inflammation. Tympanic membranes intact with normal light reflex and landmark. Eyes: Pupils are central, bilaterally equal, symmetrical and reacts to light with normal movements and no icterus or pallor. Nose: External nares are patent. Mucosa is pink Mouth-Throat: Good general appearance and condition. No post-pharyngeal/oropharyngeal erythema and tonsillar hypertrophy. Good dental hygiene. Neck-Lymphatic: Neck is supple with normal ROM, no thyromegaly, lymph nodes or masses. JVD is normal with no carotid bruit. Lungs: Bilateral inspiratory and expiratory wheeze with rhonchi Cardiovascular: S1 and S2 are normal with no murmurs, gallops and rub. GI Exam: No hepatomegaly. Abdomen is soft and non-tender. No Organomegaly , masses or hernias are evident and bowel sounds are normal and active. Neurology: Higher function and all cranial nerves intact, with no gross motor or sensory deficit. Superficial and deep reflexes are normal with downwards planters. No cerebellar deficit with normal gait. Musculoskeletal: No tender spots with normal curvature of the spine with no swelling or restricted ROM of the small and large joints. Extremities: Homans sign absent. Intact pulses with no pitting edema, calf tenderness or skin color changes. Skin: No rash, eruptions or abnormal skin pigmentation LAB/RADIOLOGY: ASSESMENT : COPD with acute exacerbation with respiratory infection History of gastritis. PLAN: See orders Present on Admission - Present on Admission Any Indicators Present on Admission: No Past Patient History - Infectious Disease Hx of Infectious Diseases: None - Past Medical History & Family History Past Medical History?: Yes - Past Social History Smoking Status: Never Smoked - CARDIAC Hx Cardia Arrhythmia: Yes Hx Hypertension: Yes - PULMONARY Hx Asthma: Yes Hx Chronic Obstructive Pulmonary Disease (COPD): Yes (Asthma) Hx Emphysema: Yes - NEUROLOGICAL Hx Neurological Disorder: Yes HX Cerebrovascular Accident: Yes Other/Comment: myathenia gravis - HEENT Hx Cataracts: Yes - RENAL Hx Chronic Kidney Disease: No - ENDOCRINE/METABOLIC Hx Endocrine Disorders: No - HEMATOLOGICAL/ONCOLOGICAL Hx Blood Disorders: No - INTEGUMENTARY Hx Dermatological Problems: No - MUSCULOSKELETAL/RHEUMATOLOGICAL Hx Falls: No - GASTROINTESTINAL Hx Gastritis: Yes - GENITOURINARY/GYNECOLOGICAL Hx Genitourinary Disorders: No - PSYCHIATRIC Hx Substance Use: No - SURGICAL HISTORY Hx Appendectomy: Yes Hx Cholecystectomy: Yes - ANESTHESIA Hx Anesthesia: Yes Hx Anesthesia Reactions: No Hx Malignant Hyperthermia: No Meds Allergies/Adverse Reactions: Allergies Allergy/AdvReac Type Severity Reaction Status Date / Time Penicillins Allergy RASH Verified 07/09/18 20:28 Results - Vital Signs Recent Vital Signs: Last Vital Signs Temp 97.8 F 07/10/18 14:40 Pulse 114 H 07/10/18 14:40 Resp 22 07/10/18 14:40 BP 135/47 L 07/10/18 14:40 Pulse Ox 92 L 07/10/18 14:40 - Labs Result Diagrams: 07/09/18 21:22 07/09/18 22:17 Labs: Laboratory Results - last 24 hr 07/09/18 07/09/18 21:22 22:17 WBC 9.4 RBC 4.72 Hgb 13.9 Hct 42.0 MCV 89.0 MCH 29.5 MCHC 33.1 RDW 13.4 Plt Count 279 MPV 9.3 Neut % (Auto) 79.2 H Lymph % (Auto) 15.3 L [place] % (Auto) 4.5 Eos % (Auto) 0.6 Baso % (Auto) 0.4 Neut # (Auto) 7.4 H Lymph # (Auto) 1.4 [place]itus # (Auto) 0.4 Eos # (Auto) 0.1 Baso # (Auto) 0.0 Sodium 138 Potassium 2.9 L Chloride 93 L Carbon Dioxide 32 H Anion Gap 16 BUN 16 Creatinine 0.6 L Est GFR ( Amer) > 60 Est GFR (Non-Af Amer) > 60 Random Glucose 222 H Calcium 8.7 Total Bilirubin 0.3 AST 29 ALT 23 Alkaline Phosphatase 74 Troponin I < 0.0120 NT-Pro-B Natriuret Pep 90.5 Total Protein 7.7 Albumin 4.3 Globulin 3.4 Albumin/Globulin Ratio 1.3
[2018-07-10] MEDS: Enoxaparin 60 mg Syringe SC SCH (16:01)
[2018-07-10] MEDS: Potassium Chloride 20 mEq ER Tab PO SCH (16:01)
[2018-07-11] MEDS: Albuterol-Ipratrop 3 mg / 0.5 (3 ml) UD INH SCH ×7 (00:32→19:41)
[2018-07-11] MEDS ORDERED: guaiFENesin 100 mg/5 ml Syrup UD PO ONE (03:15)
[2018-07-11 08:14] LABS: BASO # 0.1 K/uL (0.0-0.2); BASO % 0.3 % (0.0-2.0); HEMOGLOBIN 13.5 g/dL (11.0-16.0); LYMPH # 1.4 K/uL (1.0-4.3); LYMPH % 6.7 % (20.0-40.0); MEAN CELL VOLUME 90.3 fL (81.0-99.0); MEAN CORPUSCULAR HEMOGLOBIN 29.4 pg (27.0-31.0); MEAN CORPUSCULAR HGB CONC 32.6 g/dL (33.0-37.0); MEAN PLATELET VOLUME 9.8 fL (7.2-11.7); MONO # 0.7 K/uL (0.0-0.8); MONO % 3.5 % (0.0-10.0); NEUT # 18.5 K/uL (1.8-7.0); NEUT % 89.5 % (50.0-75.0); PLATELET COUNT 343 K/uL (130-400); RBC 4.59 Mil/uL (3.80-5.20); RED CELL DISTRIBUTION WIDTH 13.7 % (11.5-14.5)
[2018-07-11 08:18] LABS: ALB/GLOB RATIO 1.2 (1.0-2.1); ALBUMIN 4.1 g/dL (3.5-5.0); ALT/SGPT 18 U/L (9-52); AST/SGOT 43 U/L (14-36); BLOOD UREA NITROGEN 28 mg/dL (7-17); CALCIUM 9.3 mg/dl (8.6-10.4); GFR NON-AFRICAN AMERICAN > 60
[2018-07-11 08:20] LABS: WHITE BLOOD COUNT 20.6 K/uL (4.8-10.8)
[2018-07-11 08:23] LABS: B-TYPE NATRIURETIC PEPTIDE 403 pg/mL (0-900)
[2018-07-11 08:56] LABS: LYMPHOCYTE 9 % (20-40); MONOCYTE 5 % (0-10); NEUTROPHIL 86 % (50-75); PLATELET ESTIMATE NORMAL (NORMAL); TOTAL CELLS COUNTED 100
[2018-07-11] MEDS: guaiFENesin DM 200 mg-20 mg/10 ml UD PO PRN ×3 (10:33→23:39)
[2018-07-11] MEDS: Potassium Chloride 20 mEq ER Tab PO SCH (10:34)
[2018-07-11] MEDS: Pantoprazole 40 mg EC Tab PO SCH (10:35)
[2018-07-11] MEDS: Enoxaparin 60 mg Syringe SC SCH (10:36)
--- NOTE | 2018-07-11 14:25 | CP.PCM.PN ---
Subjective - Date & Time of Evaluation Date of Evaluation: 07/11/18 Time of Evaluation: 14:22 - Subjective Subjective: CHIEF COMPLAINTS TODAY : Patient is still complaining of cough and scant expectoration and wheezing ROS. HEENT : N. Resp : No hemoptysis Cardio : No anginal CP, PND, orthopnea, palpitation GI : No abd.pain, n/v ,diarrhea or GI bleeding . HOTEL YARDPERSON : No headache, vertigo, focal deficit. Musculoskel : No joint swelling , Derm : No rash Psych : Normal affect. Ext : No swelling ,calf pain PE. Pt. is alert awake in no distress. V.S As noted in the chart Head ,ear nose,throat and eyes : Normal. Neck : Supple with normal carotids. Lungs: Clear air entry. Bilateral inspiratory and expiratory wheeze Heart : S1 & S2 normal with S4. No murmur. Abd : Soft non tender with normal bowel sounds. Neuro : Moves all ext. with no localized deficit. Ext : No edema with intact pulses.Non tender calves Derm : No rashes or decubitus ulcer. LABS/RADIOLOGY: WBC count is 20,000, probably secondary to infection or steroids ASSESSMENT/PLAN : Continue nebulizer IV antibiotic and steroids. Objective - Vital Signs/Intake and Output Vital Signs (last 24 hours): Temp Pulse Resp BP Pulse Ox 98.1 F 108 H 18 176/66 H 97 07/11/18 08:00 07/11/18 08:00 07/11/18 08:00 07/11/18 08:00 07/11/18 08:00 - Medications Medications: Current Medications Acetaminophen (Tylenol 325mg Tab) 650 mg PO Q6 PRN PRN Reason: Headache Last Admin: 07/11/18 10:32 Dose: 650 mg Albuterol/Ipratropium (Duoneb 3 Mg/0.5 Mg (3 Ml) Ud) 3 ml INH RQ4 [facility] Last Admin: 07/11/18 13:30 Dose: 3 ml Amlodipine Besylate (Norvasc) 5 mg PO DAILY [facility] Last Admin: 07/11/18 10:34 Dose: 5 mg Aspirin (Aspirin Chewable) 81 mg PO DAILY [facility] Last Admin: 07/11/18 10:35 Dose: 81 mg Enoxaparin Sodium (Lovenox) 60 mg SC DAILY [facility] Last Admin: 07/11/18 10:36 Dose: 60 mg Guaifenesin/Dextromethorphan (Robitussin Dm) 10 ml PO Q4H PRN PRN Reason: Cough and congestion Last Admin: 07/11/18 10:33 Dose: 10 ml Hydrochlorothiazide (Hydrodiuril) 25 mg PO DAILY [facility] Last Admin: 07/11/18 10:34 Dose: 25 mg Losartan Potassium (Cozaar) 100 mg PO DAILY [facility] Last Admin: 07/11/18 10:34 Dose: 100 mg Meclizine HCl (Antivert) 25 mg PO Q6 PRN PRN Reason: vertigo Memantine (Namenda) 5 mg PO DAILY [facility] Last Admin: 07/10/18 11:50 Dose: Not Given Methylprednisolone (Solu-Medrol) 60 mg IV Q8 [facility] Last Admin: 07/11/18 13:47 Dose: 60 mg Pantoprazole Sodium (Protonix Ec Tab) 40 mg PO DAILY [facility] Last Admin: 07/11/18 10:35 Dose: 40 mg Potassium Chloride (K-Dur 20 Meq Er Tab) 20 meq PO DAILY [facility] Last Admin: 07/11/18 10:34 Dose: 20 meq Zolpidem Tartrate (Ambien) 5 mg PO HS [facility] Last Admin: 07/10/18 21:17 Dose: 5 mg - Labs Labs: 07/11/18 07:45 07/11/18 07:45
--- NOTE | 2018-07-11 17:39 | CARD ---
APPROVED REPORT Date of service: 07/09/2018 EKG Measurement Heart [id number] <Conclusion> Sinus tachycardia Septal infarct, age undetermined Abnormal ECG
[2018-07-12] MEDS: Promethazine/Cod 6.25mg-10mg/5ml Syr UD PO PRN ×2 (01:21→05:42)
[2018-07-12] MEDS: Albuterol-Ipratrop 3 mg / 0.5 (3 ml) UD INH SCH ×6 (01:30→20:30)
[2018-07-12 09:10] LABS: BASO % 0.1 % (0.0-2.0); HEMOGLOBIN 13.3 g/dL (11.0-16.0); LYMPH # 1.1 K/uL (1.0-4.3); LYMPH % 6.1 % (20.0-40.0); MEAN CELL VOLUME 90.3 fL (81.0-99.0); MEAN CORPUSCULAR HEMOGLOBIN 29.6 pg (27.0-31.0); MEAN CORPUSCULAR HGB CONC 32.7 g/dL (33.0-37.0); MEAN PLATELET VOLUME 9.7 fL (7.2-11.7); MONO # 0.7 K/uL (0.0-0.8); MONO % 4.2 % (0.0-10.0); NEUT # 15.4 K/uL (1.8-7.0); NEUT % 89.6 % (50.0-75.0); PLATELET COUNT 297 K/uL (130-400); RBC 4.49 Mil/uL (3.80-5.20); RED CELL DISTRIBUTION WIDTH 14.2 % (11.5-14.5); WHITE BLOOD COUNT 17.2 K/uL (4.8-10.8)
[2018-07-12 09:30] LABS: ALB/GLOB RATIO 1.2 (1.0-2.1); ALBUMIN 3.9 g/dL (3.5-5.0); ALT/SGPT 59 U/L (9-52); AST/SGOT 95 U/L (14-36); BLOOD UREA NITROGEN 31 mg/dL (7-17); GFR NON-AFRICAN AMERICAN > 60
[2018-07-12] MEDS: Pantoprazole 40 mg EC Tab PO SCH (09:43)
[2018-07-12] MEDS: Enoxaparin 60 mg Syringe SC SCH (09:44)
[2018-07-12 11:03] LABS: ANISOCYTOSIS SLIGHT; BANDS 4 % (0-2); LYMPHOCYTE 5 % (20-40); MONOCYTE 3 % (0-10); NEUTROPHIL 88 % (50-75); PLATELET ESTIMATE NORMAL (NORMAL); TOTAL CELLS COUNTED 100
[2018-07-12 11:04] LABS: HYPOCHROMIC SLIGHT; LARGE PLATELETS PRESENT; POLYCHROMIC SLIGHT; TOXIC GRANULATION PRESENT
[2018-07-12] MEDS ORDERED: Albuterol-Ipratrop 3 mg / 0.5 (3 ml) UD INH STA (12:34)
--- NOTE | 2018-07-12 14:40 | CP.PCM.PN ---
Subjective - Date & Time of Evaluation Date of Evaluation: 07/12/18 Time of Evaluation: 14:39 - Subjective Subjective: CHIEF COMPLAINTS TODAY : patient has not much improved concerning her wheezing with [id number] nebulizer and steroids HEENT : N. Resp : No hemoptysis Cardio : No anginal CP, PND, orthopnea, palpitation GI : No abd.pain, n/v ,diarrhea or GI bleeding . 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 Musculoskel : No joint swelling , Derm : No rash Psych : Normal affect. Ext : No swelling ,calf pain PE. Pt. is alert awake in no distress. V.S As noted in the chart Head ,ear nose,throat and eyes : Normal. Neck : Supple with normal carotids. Lungs: Clear air entry. Bilateral inspiratory and expiratory wheeze Heart : S1 & S2 normal with S4. No murmur. Abd : Soft non tender with normal bowel sounds. Neuro : Moves all ext. with no localized deficit. Ext : No edema with intact pulses.Non tender calves Derm : No rashes or decubitus ulcer. LABS/RADIOLOGY: WBC count is 20,000, probably secondary to infection or steroids ASSESSMENT/PLAN : Continue nebulizer IV antibiotic and steroids. pulmonary and ID evaluation. Objective - Vital Signs/Intake and Output Vital Signs (last 24 hours): Temp Pulse Resp BP Pulse Ox 98.0 F 99 H 20 134/61 96 07/12/18 08:07 07/12/18 08:07 07/12/18 08:07 07/12/18 08:07 07/12/18 08:07 Intake and Output: 07/12/18 07/12/18 11:59 23:59 Intake Total 100 Balance 100 - Medications Medications: Current Medications Acetaminophen (Tylenol 325mg Tab) 650 mg PO Q6 PRN PRN Reason: Headache Last Admin: 07/11/18 22:22 Dose: 650 mg Albuterol/Ipratropium (Duoneb 3 Mg/0.5 Mg (3 Ml) Ud) 3 ml INH RQ4 [facility] Last Admin: 07/12/18 12:05 Dose: 3 ml Amlodipine Besylate (Norvasc) 5 mg PO DAILY [facility] Last Admin: 07/12/18 09:43 Dose: 5 mg Aspirin (Aspirin Chewable) 81 mg PO DAILY [facility] Last Admin: 07/12/18 09:43 Dose: 81 mg Enoxaparin Sodium (Lovenox) 60 mg SC DAILY [facility] Last Admin: 07/12/18 09:44 Dose: Not Given Hydrochlorothiazide (Hydrodiuril) 25 mg PO DAILY [facility] Last Admin: 07/12/18 09:43 Dose: 25 mg Losartan Potassium (Cozaar) 100 mg PO DAILY [facility] Last Admin: 07/12/18 09:43 Dose: 100 mg Meclizine HCl (Antivert) 25 mg PO Q6 PRN PRN Reason: vertigo Memantine (Namenda) 5 mg PO DAILY [facility] Last Admin: 07/12/18 09:46 Dose: Not Given Methylprednisolone (Solu-Medrol) 60 mg IV Q8 [facility] Last Admin: 07/12/18 13:02 Dose: 60 mg Pantoprazole Sodium (Protonix Ec Tab) 40 mg PO DAILY [facility] Last Admin: 07/12/18 09:43 Dose: 40 mg Promethazine HCl/Codeine (Phenergan/Codeine Oral Syrup) 5 ml PO Q4H PRN PRN Reason: Cough and congestion Last Admin: 07/12/18 05:42 Dose: 5 ml Zolpidem Tartrate (Ambien) 5 mg PO HS [facility] Last Admin: 07/11/18 21:39 Dose: 5 mg - Labs Labs: 07/12/18 08:57 07/12/18 08:57
[2018-07-12 15:27] LABS: ABG ALLEN TEST POS; ARTERIAL BLOOD GAS HCO3 27.5 mmol/L (21-28); ARTERIAL BLOOD GAS HEMOGLOBIN 12.5 g/dL (11.7-17.4); ARTERIAL BLOOD GAS O2 SAT 85.1 % (95-98); ARTERIAL BLOOD GAS PCO2 57 mm/Hg (35-45); ARTERIAL BLOOD GAS PH 7.34 (7.35-7.45); ARTERIAL BLOOD GAS PO2 47 mm/Hg (80-100); ARTERIAL BLOOD GAS TCO2 32.5 mmol/L (22-28)
--- NOTE | 2018-07-12 15:32 | CP.PCM.CON ---
Past Patient History - Infectious Disease Hx of Infectious Diseases: None - Past Medical History & Family History Past Medical History?: Yes - Past Social History Smoking Status: Never Smoked - CARDIAC Hx Cardia Arrhythmia: Yes Hx Hypertension: Yes - PULMONARY Hx Asthma: Yes Hx Chronic Obstructive Pulmonary Disease (COPD): Yes (Asthma) Hx Emphysema: Yes - NEUROLOGICAL Hx Neurological Disorder: Yes HX Cerebrovascular Accident: Yes Other/Comment: myathenia gravis - HEENT Hx Cataracts: Yes - RENAL Hx Chronic Kidney Disease: No - ENDOCRINE/METABOLIC Hx Endocrine Disorders: No - HEMATOLOGICAL/ONCOLOGICAL Hx Blood Disorders: No - INTEGUMENTARY Hx Dermatological Problems: No - MUSCULOSKELETAL/RHEUMATOLOGICAL Hx Falls: No - GASTROINTESTINAL Hx Gastritis: Yes - GENITOURINARY/GYNECOLOGICAL Hx Genitourinary Disorders: No - PSYCHIATRIC Hx Substance Use: No - SURGICAL HISTORY Hx Appendectomy: Yes Hx Cholecystectomy: Yes - ANESTHESIA Hx Anesthesia: Yes Hx Anesthesia Reactions: No Hx Malignant Hyperthermia: No Meds Allergies/Adverse Reactions: Allergies Allergy/AdvReac Type Severity Reaction Status Date / Time Penicillins Allergy RASH Verified 07/09/18 20:28 - Medications Medications: Current Medications Acetaminophen (Tylenol 325mg Tab) 650 mg PO Q6 PRN PRN Reason: Headache Last Admin: 07/11/18 22:22 Dose: 650 mg Albuterol/Ipratropium (Duoneb 3 Mg/0.5 Mg (3 Ml) Ud) 3 ml INH RQ4 [facility] Last Admin: 07/12/18 12:05 Dose: 3 ml Amlodipine Besylate (Norvasc) 5 mg PO DAILY [facility] Last Admin: 07/12/18 09:43 Dose: 5 mg Aspirin (Aspirin Chewable) 81 mg PO DAILY [facility] Last Admin: 07/12/18 09:43 Dose: 81 mg Enoxaparin Sodium (Lovenox) 60 mg SC DAILY [facility] Last Admin: 07/12/18 09:44 Dose: Not Given Hydrochlorothiazide (Hydrodiuril) 25 mg PO DAILY [facility] Last Admin: 07/12/18 09:43 Dose: 25 mg Losartan Potassium (Cozaar) 100 mg PO DAILY [facility] Last Admin: 07/12/18 09:43 Dose: 100 mg Meclizine HCl (Antivert) 25 mg PO Q6 PRN PRN Reason: vertigo Memantine (Namenda) 5 mg PO DAILY [facility] Last Admin: 07/12/18 09:46 Dose: Not Given Methylprednisolone (Solu-Medrol) 60 mg IV Q8 [facility] Last Admin: 07/12/18 13:02 Dose: 60 mg Pantoprazole Sodium (Protonix Ec Tab) 40 mg PO DAILY [facility] Last Admin: 07/12/18 09:43 Dose: 40 mg Promethazine HCl/Codeine (Phenergan/Codeine Oral Syrup) 5 ml PO Q4H PRN PRN Reason: Cough and congestion Last Admin: 07/12/18 05:42 Dose: 5 ml Zolpidem Tartrate (Ambien) 5 mg PO HS [facility] Last Admin: 07/11/18 21:39 Dose: 5 mg Results - Vital Signs Recent Vital Signs: Last Vital Signs Temp 98.0 F 07/12/18 08:07 Pulse 99 H 07/12/18 08:07 Resp 20 07/12/18 08:07 BP 134/61 07/12/18 08:07 Pulse Ox 96 07/12/18 08:07 - Labs Result Diagrams: 07/12/18 08:57 07/12/18 08:57 Labs: Laboratory Results - last 24 hr 07/12/18 07/12/18 07/12/18 06:08 08:57 08:57 WBC 17.2 H RBC 4.49 Hgb 13.3 Hct 40.5 MCV 90.3 MCH 29.6 MCHC 32.7 L RDW 14.2 Plt Count 297 MPV 9.7 Neut % (Auto) 89.6 H Lymph % (Auto) 6.1 L [place] % (Auto) 4.2 Eos % (Auto) 0.0 Baso % (Auto) 0.1 Neut # (Auto) 15.4 H Lymph # (Auto) 1.1 [place] # (Auto) 0.7 Eos # (Auto) 0.0 Baso # (Auto) 0.0 Neutrophils % (Manual) 88 H Band Neutrophils % 4 H Lymphocytes % (Manual) 5 L Monocytes % (Manual) 3 Toxic Granulation Present Platelet Estimate Normal Large Platelets Present Polychromasia Slight Hypochromasia (manual) Slight Anisocytosis (manual) Slight Puncture Site pCO2 pO2 HCO3 ABG pH ABG Total CO2 ABG O2 Saturation ABG Base Excess ABG Hemoglobin ABG Carboxyhemoglobin POC ABG HHb (Measured) ABG Methemoglobin Raf Test A-a O2 Difference Respiratory Index Hgb O2 Saturation Liter Flow FiO2 Sodium 135 Potassium 4.5 Chloride 95 L Carbon Dioxide 27 Anion Gap 17 BUN 31 H Creatinine 0.6 L Est GFR ( Amer) > 60 Est GFR (Non-Af Amer) > 60 POC Glucose (mg/dL) 128 H Random Glucose 164 H Calcium 9.0 Total Bilirubin 0.4 AST 95 H D ALT 59 H D Alkaline Phosphatase 57 Total Protein 7.4 Albumin 3.9 Globulin 3.4 Albumin/Globulin Ratio 1.2 07/12/18 07/12/18 11:57 15:20 WBC RBC Hgb Hct MCV MCH MCHC RDW Plt Count MPV Neut % (Auto) Lymph % (Auto) [place] % (Auto) Eos % (Auto) Baso % (Auto) Neut # (Auto) Lymph # (Auto) [place] # (Auto) Eos # (Auto) Baso # (Auto) Neutrophils % (Manual) Band Neutrophils % Lymphocytes % (Manual) Monocytes % (Manual) Toxic Granulation Platelet Estimate Large Platelets Polychromasia Hypochromasia (manual) Anisocytosis (manual) Puncture Site Rr pCO2 57 H pO2 47 L HCO3 27.5 ABG pH 7.34 L ABG Total CO2 32.5 H ABG O2 Saturation 85.1 L ABG Base Excess 3.7 H ABG Hemoglobin 12.5 ABG Carboxyhemoglobin 1.2 POC ABG HHb (Measured) 14.6 H ABG Methemoglobin 1.1 Raf Test Pos A-a O2 Difference 138.0 Respiratory Index 2.9 Hgb O2 Saturation 83.1 L Liter Flow 4.0 FiO2 36.0 Sodium Potassium Chloride Carbon Dioxide Anion Gap BUN Creatinine Est GFR ( Amer) Est GFR (Non-Af Amer) POC Glucose (mg/dL) 168 H Random Glucose Calcium Total Bilirubin AST ALT Alkaline Phosphatase Total Protein Albumin Globulin Albumin/Globulin Ratio
--- NOTE | 2018-07-12 16:14 | CP.PCM.CON ---
History of Present Illness - History of Present Illness History of Present Illness: reason for consultation: shortness of breath 72-year-old female with history of COPD presented to emergency room complaining cough worsening shortness of breath, wheezing, productive cough for the past few days not responding to bronchodilators. Patient has been on IV steroids and nebulizer treatment with minimal improvement. Denies fever chills, denies chest pain Review of Systems - Review of Systems All systems: reviewed and no additional remarkable complaints except (shortness of breath and productive cough) Past Patient History - Infectious Disease Hx of Infectious Diseases: None - Past Medical History & Family History Past Medical History?: Yes - Past Social History Smoking Status: Former Smoker - CARDIAC Hx Cardia Arrhythmia: Yes Hx Hypertension: Yes - PULMONARY Hx Asthma: Yes Hx Chronic Obstructive Pulmonary Disease (COPD): Yes (Asthma) Hx Emphysema: Yes - NEUROLOGICAL Hx Neurological Disorder: Yes HX Cerebrovascular Accident: Yes Other/Comment: myathenia gravis - HEENT Hx Cataracts: Yes - RENAL Hx Chronic Kidney Disease: No - ENDOCRINE/METABOLIC Hx Endocrine Disorders: No - HEMATOLOGICAL/ONCOLOGICAL Hx Blood Disorders: No - INTEGUMENTARY Hx Dermatological Problems: No - MUSCULOSKELETAL/RHEUMATOLOGICAL Hx Falls: No - GASTROINTESTINAL Hx Gastritis: Yes - GENITOURINARY/GYNECOLOGICAL Hx Genitourinary Disorders: No - PSYCHIATRIC Hx Substance Use: No - SURGICAL HISTORY Hx Appendectomy: Yes Hx Cholecystectomy: Yes - ANESTHESIA Hx Anesthesia: Yes Hx Anesthesia Reactions: No Hx Malignant Hyperthermia: No Meds Allergies/Adverse Reactions: Allergies Allergy/AdvReac Type Severity Reaction Status Date / Time Penicillins Allergy RASH Verified 07/09/18 20:28 - Medications Medications: Current Medications Acetaminophen (Tylenol 325mg Tab) 650 mg PO Q6 PRN PRN Reason: Headache Last Admin: 07/11/18 22:22 Dose: 650 mg Albuterol/Ipratropium (Duoneb 3 Mg/0.5 Mg (3 Ml) Ud) 3 ml INH RQ4 [facility] Last Admin: 07/12/18 15:56 Dose: 3 ml Amlodipine Besylate (Norvasc) 5 mg PO DAILY [facility] Last Admin: 07/12/18 09:43 Dose: 5 mg Aspirin (Aspirin Chewable) 81 mg PO DAILY [facility] Last Admin: 07/12/18 09:43 Dose: 81 mg Enoxaparin Sodium (Lovenox) 60 mg SC DAILY [facility] Last Admin: 07/12/18 09:44 Dose: Not Given Hydrochlorothiazide (Hydrodiuril) 25 mg PO DAILY [facility] Last Admin: 07/12/18 09:43 Dose: 25 mg Losartan Potassium (Cozaar) 100 mg PO DAILY [facility] Last Admin: 07/12/18 09:43 Dose: 100 mg Meclizine HCl (Antivert) 25 mg PO Q6 PRN PRN Reason: vertigo Memantine (Namenda) 5 mg PO DAILY [facility] Last Admin: 07/12/18 09:46 Dose: Not Given Methylprednisolone (Solu-Medrol) 60 mg IV Q8 [facility] Last Admin: 07/12/18 13:02 Dose: 60 mg Pantoprazole Sodium (Protonix Ec Tab) 40 mg PO DAILY [facility] Last Admin: 07/12/18 09:43 Dose: 40 mg Promethazine HCl/Codeine (Phenergan/Codeine Oral Syrup) 5 ml PO Q4H PRN PRN Reason: Cough and congestion Last Admin: 07/12/18 05:42 Dose: 5 ml Tiotropium [place] (Spiriva) 18 mcg INH RQ24 [facility] Zolpidem Tartrate (Ambien) 5 mg PO HS [facility] Last Admin: 07/11/18 21:39 Dose: 5 mg Physical Exam - Head Exam Head Exam: ATRAUMATIC, NORMOCEPHALIC - ENT Exam ENT Exam: Mucous Membranes Moist - Neck Exam Neck exam: Positive for: Normal Inspection - Respiratory Exam Respiratory Exam: Rhonchi, Wheezes - Cardiovascular Exam Cardiovascular Exam: REGULAR RHYTHM - GI/Abdominal Exam GI & Abdominal Exam: Normal Bowel Sounds, Soft - Extremities Exam Extremities exam: Positive for: normal inspection Results - Vital Signs Recent Vital Signs: Last Vital Signs Temp 98.0 F 07/12/18 08:07 Pulse 99 H 07/12/18 08:07 Resp 20 07/12/18 08:07 BP 134/61 07/12/18 08:07 Pulse Ox 96 07/12/18 08:07 - Labs Result Diagrams: 07/12/18 08:57 07/12/18 08:57 Labs: Laboratory Results - last 24 hr 07/12/18 07/12/18 07/12/18 06:08 08:57 08:57 WBC 17.2 H RBC 4.49 Hgb 13.3 Hct 40.5 MCV 90.3 MCH 29.6 MCHC 32.7 L RDW 14.2 Plt Count 297 MPV 9.7 Neut % (Auto) 89.6 H Lymph % (Auto) 6.1 L [place] % (Auto) 4.2 Eos % (Auto) 0.0 Baso % (Auto) 0.1 Neut # (Auto) 15.4 H Lymph # (Auto) 1.1 [place] # (Auto) 0.7 Eos # (Auto) 0.0 Baso # (Auto) 0.0 Neutrophils % (Manual) 88 H Band Neutrophils % 4 H Lymphocytes % (Manual) 5 L Monocytes % (Manual) 3 Toxic Granulation Present Platelet Estimate Normal Large Platelets Present Polychromasia Slight Hypochromasia (manual) Slight Anisocytosis (manual) Slight Puncture Site pCO2 pO2 HCO3 ABG pH ABG Total CO2 ABG O2 Saturation ABG Base Excess ABG Hemoglobin ABG Carboxyhemoglobin POC ABG HHb (Measured) ABG Methemoglobin Raf Test A-a O2 Difference Respiratory Index Hgb O2 Saturation Liter Flow FiO2 Sodium 135 Potassium 4.5 Chloride 95 L Carbon Dioxide 27 Anion Gap 17 BUN 31 H Creatinine 0.6 L Est GFR ( Amer) > 60 Est GFR (Non-Af Amer) > 60 POC Glucose (mg/dL) 128 H Random Glucose 164 H Calcium 9.0 Total Bilirubin 0.4 AST 95 H D ALT 59 H D Alkaline Phosphatase 57 Total Protein 7.4 Albumin 3.9 Globulin 3.4 Albumin/Globulin Ratio 1.2 07/12/18 07/12/18 11:57 15:20 WBC RBC Hgb Hct MCV MCH MCHC RDW Plt Count MPV Neut % (Auto) Lymph % (Auto) [place] % (Auto) Eos % (Auto) Baso % (Auto) Neut # (Auto) Lymph # (Auto) [place] # (Auto) Eos # (Auto) Baso # (Auto) Neutrophils % (Manual) Band Neutrophils % Lymphocytes % (Manual) Monocytes % (Manual) Toxic Granulation Platelet Estimate Large Platelets Polychromasia Hypochromasia (manual) Anisocytosis (manual) Puncture Site Rr pCO2 57 H pO2 47 L HCO3 27.5 ABG pH 7.34 L ABG Total CO2 32.5 H ABG O2 Saturation 85.1 L ABG Base Excess 3.7 H ABG Hemoglobin 12.5 ABG Carboxyhemoglobin 1.2 POC ABG HHb (Measured) 14.6 H ABG Methemoglobin 1.1 Raf Test Pos A-a O2 Difference 138.0 Respiratory Index 2.9 Hgb O2 Saturation 83.1 L Liter Flow 4.0 FiO2 36.0 Sodium Potassium Chloride Carbon Dioxide Anion Gap BUN Creatinine Est GFR ( Amer) Est GFR (Non-Af Amer) POC Glucose (mg/dL) 168 H Random Glucose Calcium Total Bilirubin AST ALT Alkaline Phosphatase Total Protein Albumin Globulin Albumin/Globulin Ratio Assessment & Plan (1) COPD exacerbation Assessment and Plan: ABG consistent with acute hypercapnia BiPAP Continue IV steroids and nebulizer treatment Azithromycin Antitussive LAMA Status: Acute (2) Respiratory insufficiency Status: Acute
--- NOTE | 2018-07-12 19:23 | CP.PCM.CON ---
History of Present Illness - History of Present Illness History of Present Illness: HPI: 72 year old female with PMHx of COPD presents to the ED [facility] for evaluation of chest pain and difficulty breathing for the past several days. Associated symptoms include coughing with phlegm, chest tightness, and wheezing. Reports she used Albuterol with her inhaler and nebulizer with no relief. EMS administered Neb and SoluMedrol treatments en route. CXR ON ADMISSION WAS UNREMARKABLE. PT PRESANTLY SEEN BY PULMONOLOGISTAND PUT ON BIPAPAND ON STEROIDS. C/O DRY COUGH. STATES OUT PT. ABX DID NOT HELP HER. PT IS A FORMER SMOKER BUT QUIT 20YRS AGO. INFECTIOUS DISEASE CONSULT REQUESTED BY PMD FOR PERSISTANT COUGH X 2WEEKS PMH: Asthma, Back Problems, Cardia Arrhythmia, COPD (Asthma), Emphysema, Gastritis, Gastrointestinal Ulcer, HTN, Osteoporosis Denies: Chronic Kidney Disease Surgical History: Appendectomy, Cholecystectomy, Endoscopy - [facility] Procedures ESOPHAGOGASTRODUODENOSCOPY [EGD] W/CLOSED BIOPSY (10/15/13) Family History: States: No Known Family Hx - Social History Hx Tobacco Use: No Hx Alcohol Use: No Hx Substance Use: No - Immunization History Hx Tetanus Toxoid Vaccination: No Hx Influenza Vaccination: Yes Hx Pneumococcal Vaccination: No ALLERGY : PCN. Review of Systems - Constitutional Constitutional: Chills, Fever - EENT Eyes: absent: Change in Vision Nose/Mouth/Throat: absent: Change in Voice, Mouth Lesions, Sore Throat - Cardiovascular Cardiovascular: Dyspnea. absent: Chest Pain - Respiratory Respiratory: Cough (DRY), Dyspnea, Wheezing. absent: Hemoptysis - Gastrointestinal Gastrointestinal: absent: Diarrhea, Nausea, Vomiting - Genitourinary Genitourinary: absent: Dysuria, Pyuria - Musculoskeletal Musculoskeletal: absent: Arthralgias - Neurological Neurological: absent: Headaches - Hematologic/Lymphatic Hematologic: As Per HPI. absent: Easy Bleeding, Easy Bruising, Lymphadenopathy Past Patient History - Infectious Disease Hx of Infectious Diseases: None - Past Medical History & Family History Past Medical History?: Yes - Past Social History Smoking Status: Former Smoker - CARDIAC Hx Cardia Arrhythmia: Yes Hx Hypertension: Yes - PULMONARY Hx Asthma: Yes Hx Chronic Obstructive Pulmonary Disease (COPD): Yes (Asthma) Hx Emphysema: Yes - NEUROLOGICAL Hx Neurological Disorder: Yes HX Cerebrovascular Accident: Yes Other/Comment: myathenia gravis - HEENT Hx Cataracts: Yes - RENAL Hx Chronic Kidney Disease: No - ENDOCRINE/METABOLIC Hx Endocrine Disorders: No - HEMATOLOGICAL/ONCOLOGICAL Hx Blood Disorders: No - INTEGUMENTARY Hx Dermatological Problems: No - MUSCULOSKELETAL/RHEUMATOLOGICAL Hx Falls: No - GASTROINTESTINAL Hx Gastritis: Yes - GENITOURINARY/GYNECOLOGICAL Hx Genitourinary Disorders: No - PSYCHIATRIC Hx Substance Use: No - SURGICAL HISTORY Hx Appendectomy: Yes Hx Cholecystectomy: Yes - ANESTHESIA Hx Anesthesia: Yes Hx Anesthesia Reactions: No Hx Malignant Hyperthermia: No Meds Allergies/Adverse Reactions: Allergies Allergy/AdvReac Type Severity Reaction Status Date / Time Penicillins Allergy RASH Verified 07/09/18 20:28 - Medications Medications: Current Medications Acetaminophen (Tylenol 325mg Tab) 650 mg PO Q6 PRN PRN Reason: Headache Last Admin: 07/11/18 22:22 Dose: 650 mg Albuterol/Ipratropium (Duoneb 3 Mg/0.5 Mg (3 Ml) Ud) 3 ml INH RQ4 [facility] Last Admin: 07/12/18 15:56 Dose: 3 ml Amlodipine Besylate (Norvasc) 5 mg PO DAILY [facility] Last Admin: 07/12/18 09:43 Dose: 5 mg Aspirin (Aspirin Chewable) 81 mg PO DAILY [facility] Last Admin: 07/12/18 09:43 Dose: 81 mg Enoxaparin Sodium (Lovenox) 60 mg SC DAILY [facility] Last Admin: 07/12/18 09:44 Dose: Not Given Hydrochlorothiazide (Hydrodiuril) 25 mg PO DAILY [facility] Last Admin: 07/12/18 09:43 Dose: 25 mg Azithromycin 500 mg/ Sodium (Chloride) 250 mls @ 250 mls/hr IVPB Q24H [facility]; Protocol Losartan Potassium (Cozaar) 100 mg PO DAILY [facility] Last Admin: 07/12/18 09:43 Dose: 100 mg Meclizine HCl (Antivert) 25 mg PO Q6 PRN PRN Reason: vertigo Memantine (Namenda) 5 mg PO DAILY [facility] Last Admin: 07/12/18 09:46 Dose: Not Given Methylprednisolone (Solu-Medrol) 60 mg IV Q8 [facility] Last Admin: 07/12/18 13:02 Dose: 60 mg Pantoprazole Sodium (Protonix Ec Tab) 40 mg PO DAILY [facility] Last Admin: 07/12/18 09:43 Dose: 40 mg Promethazine HCl/Codeine (Phenergan/Codeine Oral Syrup) 5 ml PO Q4H PRN PRN Reason: Cough and congestion Last Admin: 07/12/18 05:42 Dose: 5 ml Tiotropium [place] (Spiriva) 18 mcg INH RQ24 [facility] Zolpidem Tartrate (Ambien) 5 mg PO HS [facility] Last Admin: 07/11/18 21:39 Dose: 5 mg Physical Exam - Constitutional Appears: No Acute Distress (ON BIPAP.) - Head Exam Head Exam: NORMAL INSPECTION - Eye Exam Eye Exam: EOMI, PERRL - ENT Exam ENT Exam: Normal Oropharynx - Neck Exam Neck exam: Positive for: Normal Inspection. Negative for: Lymphadenopathy - Respiratory Exam Respiratory Exam: Decreased Breath Sounds, Prolonged Expiratory Phase - Cardiovascular Exam Cardiovascular Exam: REGULAR RHYTHM, +S1, +S2 - GI/Abdominal Exam GI & Abdominal Exam: Normal Bowel Sounds, Soft. absent: Organomegaly - Extremities Exam Extremities exam: Positive for: pedal pulses present. Negative for: calf tenderness, pedal edema - Neurological Exam Neurological exam: Alert, CN II-XII Intact, Normal Gait, Reflexes Normal - Psychiatric Exam Psychiatric exam: Normal Mood - Skin Skin Exam: Normal Color, Warm Results - Vital Signs Recent Vital Signs: Last Vital Signs Temp 98.1 F 07/12/18 15:25 Pulse 103 H 07/12/18 15:25 Resp 20 07/12/18 15:25 BP 143/61 07/12/18 15:25 Pulse Ox 96 07/12/18 15:25 - Labs Result Diagrams: 07/12/18 08:57 07/12/18 08:57 Labs: Laboratory Results - last 24 hr 07/12/18 07/12/18 07/12/18 06:08 08:57 08:57 WBC 17.2 H RBC 4.49 Hgb 13.3 Hct 40.5 MCV 90.3 MCH 29.6 MCHC 32.7 L RDW 14.2 Plt Count 297 MPV 9.7 Neut % (Auto) 89.6 H Lymph % (Auto) 6.1 L [place] % (Auto) 4.2 Eos % (Auto) 0.0 Baso % (Auto) 0.1 Neut # (Auto) 15.4 H Lymph # (Auto) 1.1 [place] # (Auto) 0.7 Eos # (Auto) 0.0 Baso # (Auto) 0.0 Neutrophils % (Manual) 88 H Band Neutrophils % 4 H Lymphocytes % (Manual) 5 L Monocytes % (Manual) 3 Toxic Granulation Present Platelet Estimate Normal Large Platelets Present Polychromasia Slight Hypochromasia (manual) Slight Anisocytosis (manual) Slight Puncture Site pCO2 pO2 HCO3 ABG pH ABG Total CO2 ABG O2 Saturation ABG Base Excess ABG Hemoglobin ABG Carboxyhemoglobin POC ABG HHb (Measured) ABG Methemoglobin Raf Test A-a O2 Difference Respiratory Index Hgb O2 Saturation Liter Flow FiO2 Sodium 135 Potassium 4.5 Chloride 95 L Carbon Dioxide 27 Anion Gap 17 BUN 31 H Creatinine 0.6 L Est GFR ( Amer) > 60 Est GFR (Non-Af Amer) > 60 POC Glucose (mg/dL) 128 H Random Glucose 164 H Calcium 9.0 Total Bilirubin 0.4 AST 95 H D ALT 59 H D Alkaline Phosphatase 57 Total Protein 7.4 Albumin 3.9 Globulin 3.4 Albumin/Globulin Ratio 1.2 07/12/18 07/12/18 11:57 15:20 WBC RBC Hgb Hct MCV MCH MCHC RDW Plt Count MPV Neut % (Auto) Lymph % (Auto) [place] % (Auto) Eos % (Auto) Baso % (Auto) Neut # (Auto) Lymph # (Auto) [place] # (Auto) Eos # (Auto) Baso # (Auto) Neutrophils % (Manual) Band Neutrophils % Lymphocytes % (Manual) Monocytes % (Manual) Toxic Granulation Platelet Estimate Large Platelets Polychromasia Hypochromasia (manual) Anisocytosis (manual) Puncture Site Rr pCO2 57 H pO2 47 L HCO3 27.5 ABG pH 7.34 L ABG Total CO2 32.5 H ABG O2 Saturation 85.1 L ABG Base Excess 3.7 H ABG Hemoglobin 12.5 ABG Carboxyhemoglobin 1.2 POC ABG HHb (Measured) 14.6 H ABG Methemoglobin 1.1 Raf Test Pos A-a O2 Difference 138.0 Respiratory Index 2.9 Hgb O2 Saturation 83.1 L Liter Flow 4.0 FiO2 36.0 Sodium Potassium Chloride Carbon Dioxide Anion Gap BUN Creatinine Est GFR ( Amer) Est GFR (Non-Af Amer) POC Glucose (mg/dL) 168 H Random Glucose Calcium Total Bilirubin AST ALT Alkaline Phosphatase Total Protein Albumin Globulin Albumin/Globulin Ratio - Imaging and Cardiology Chest x-ray Status: Report reviewed by me (SEE REPORT) Assessment & Plan (1) Respiratory insufficiency Assessment and Plan: PT PRESESENTLY ON BIPAP. IS COMFORTABLE. STARTED ON IV STEROIDS PER PULMONARY.07/12/18 CONTINUE IV AZITHROMAX 500MG IVPB Q 24HRLY.07/12/18. CHECK ESR. CRP PERTUSSIS SEROLOGY/PCR. ATYPICAL TITRES. MRSA SCREEN PULMONARY TOILET . Status: Acute (2) COPD exacerbation Assessment and Plan: ABOVE ON BIPAP DUONEB TREATMENTS PER ORDERS Status: Acute (3) HTN (hypertension) Status: Acute
[2018-07-13] MEDS: Albuterol-Ipratrop 3 mg / 0.5 (3 ml) UD INH SCH ×5 (00:31→21:32)
[2018-07-13] MEDS: Tiotropium 18 mcg Cap For Inhalation INH SCH (08:17)
[2018-07-13] MEDS: Enoxaparin 60 mg Syringe SC SCH (09:19)
[2018-07-13] MEDS: Pantoprazole 40 mg EC Tab PO SCH (09:20)
[2018-07-13] MEDS: Promethazine/Cod 6.25mg-10mg/5ml Syr UD PO PRN ×2 (09:21→21:17)
--- NOTE | 2018-07-13 15:56 | CP.PCM.PN ---
Subjective - Date & Time of Evaluation Date of Evaluation: 07/13/18 Time of Evaluation: 15:55 - Subjective Subjective: Clinically patient has improved after placing on BiPAP less cough and expectoration less wheezing. Continue nebulizer IV steroids and IV antibiotics. Objective - Vital Signs/Intake and Output Vital Signs (last 24 hours): Temp Pulse Resp BP Pulse Ox 97.8 F 90 24 142/68 99 07/13/18 07:23 07/13/18 12:00 07/13/18 07:23 07/13/18 07:23 07/13/18 07:23 Intake and Output: 07/13/18 07/13/18 11:59 23:59 Intake Total 100 Balance 100 - Medications Medications: Current Medications Acetaminophen (Tylenol 325mg Tab) 650 mg PO Q6 PRN PRN Reason: Headache Last Admin: 07/11/18 22:22 Dose: 650 mg Albuterol/Ipratropium (Duoneb 3 Mg/0.5 Mg (3 Ml) Ud) 3 ml INH RQ4 [facility] Last Admin: 07/13/18 12:00 Dose: 3 ml Amlodipine Besylate (Norvasc) 5 mg PO DAILY [facility] Last Admin: 07/13/18 09:20 Dose: 5 mg Aspirin (Aspirin Chewable) 81 mg PO DAILY [facility] Last Admin: 07/13/18 09:20 Dose: 81 mg Enoxaparin Sodium (Lovenox) 60 mg SC DAILY [facility] Last Admin: 07/13/18 09:19 Dose: 60 mg Hydrochlorothiazide (Hydrodiuril) 25 mg PO DAILY [facility] Last Admin: 07/13/18 09:20 Dose: 25 mg Azithromycin 500 mg/ Sodium (Chloride) 250 mls @ 250 mls/hr IVPB Q24H [facility]; Protocol Losartan Potassium (Cozaar) 100 mg PO DAILY [facility] Last Admin: 07/13/18 09:20 Dose: 100 mg Meclizine HCl (Antivert) 25 mg PO Q6 PRN PRN Reason: vertigo Memantine (Namenda) 5 mg PO DAILY [facility] Last Admin: 07/13/18 09:23 Dose: Not Given Methylprednisolone (Solu-Medrol) 60 mg IV Q8 [facility] Last Admin: 07/13/18 13:16 Dose: 60 mg Pantoprazole Sodium (Protonix Ec Tab) 40 mg PO DAILY [facility] Last Admin: 07/13/18 09:20 Dose: 40 mg Promethazine HCl/Codeine (Phenergan/Codeine Oral Syrup) 5 ml PO Q4H PRN PRN Reason: Cough and congestion Last Admin: 07/13/18 09:21 Dose: 5 ml Tiotropium [place] (Spiriva) 18 mcg INH RQ24 [facility] Last Admin: 07/13/18 08:17 Dose: 18 mcg Zolpidem Tartrate (Ambien) 5 mg PO HS [facility] Last Admin: 07/12/18 21:15 Dose: 5 mg - Labs Labs: 07/12/18 08:57 07/12/18 08:57
[2018-07-13] MEDS: Azithromycin 500 MG in Sodium Chloride 0.9% 250 ML IVPB SCH (17:54)
[2018-07-14] MEDS: Albuterol-Ipratrop 3 mg / 0.5 (3 ml) UD INH SCH ×6 (00:10→19:55)
[2018-07-14] MEDS: Tiotropium 18 mcg Cap For Inhalation INH SCH (08:00)
[2018-07-14] MEDS: Enoxaparin 60 mg Syringe SC SCH (10:24)
[2018-07-14] MEDS: Pantoprazole 40 mg EC Tab PO SCH (10:24)
[2018-07-14] MEDS: Promethazine/Cod 6.25mg-10mg/5ml Syr UD PO PRN ×2 (10:28→16:36)
--- NOTE | 2018-07-14 13:27 | CP.PCM.PN ---
Subjective - Date & Time of Evaluation Date of Evaluation: 07/14/18 Time of Evaluation: 13:27 - Subjective Subjective: CHIEF COMPLAINTS TODAY : Patient is improving on BiPAP machine with less cough and wheezing HEENT : N. Resp : No hemoptysis Cardio : No anginal CP, PND, orthopnea, palpitation GI : No abd.pain, n/v ,diarrhea or GI bleeding . 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 Musculoskel : No joint swelling , Derm : No rash Psych : Normal affect. Ext : No swelling ,calf pain PE. Pt. is alert awake in no distress. V.S As noted in the chart Head ,ear nose,throat and eyes : Normal. Neck : Supple with normal carotids. Lungs: Clear air entry. Bilateral inspiratory and expiratory wheeze Heart : S1 & S2 normal with S4. No murmur. Abd : Soft non tender with normal bowel sounds. Neuro : Moves all ext. with no localized deficit. Ext : No edema with intact pulses.Non tender calves Derm : No rashes or decubitus ulcer. LABS/RADIOLOGY: ASSESSMENT/PLAN : Continue nebulizer IV antibiotic and steroids.And BiPAP. Objective - Vital Signs/Intake and Output Vital Signs (last 24 hours): Temp Pulse Resp BP Pulse Ox 99.3 F 78 20 124/65 97 07/14/18 08:00 07/14/18 09:30 07/14/18 08:00 07/14/18 08:00 07/14/18 08:00 - Medications Medications: Current Medications Acetaminophen (Tylenol 325mg Tab) 650 mg PO Q6 PRN PRN Reason: Headache Last Admin: 07/11/18 22:22 Dose: 650 mg Albuterol/Ipratropium (Duoneb 3 Mg/0.5 Mg (3 Ml) Ud) 3 ml INH RQ4 [facility] Last Admin: 07/14/18 07:33 Dose: 3 ml Amlodipine Besylate (Norvasc) 5 mg PO DAILY [facility] Last Admin: 07/14/18 10:24 Dose: 5 mg Aspirin (Aspirin Chewable) 81 mg PO DAILY [facility] Last Admin: 07/14/18 10:24 Dose: 81 mg Enoxaparin Sodium (Lovenox) 60 mg SC DAILY [facility] Last Admin: 07/14/18 10:24 Dose: 60 mg Hydrochlorothiazide (Hydrodiuril) 25 mg PO DAILY [facility] Last Admin: 07/14/18 10:24 Dose: 25 mg Azithromycin 500 mg/ Sodium (Chloride) 250 mls @ 250 mls/hr IVPB Q24H [facility]; Protocol Last Admin: 07/13/18 17:54 Dose: 250 mls/hr Losartan Potassium (Cozaar) 100 mg PO DAILY [facility] Last Admin: 07/14/18 10:25 Dose: 100 mg Meclizine HCl (Antivert) 25 mg PO Q6 PRN PRN Reason: vertigo Memantine (Namenda) 5 mg PO DAILY [facility] Last Admin: 07/14/18 10:25 Dose: Not Given Methylprednisolone (Solu-Medrol) 60 mg IV Q8 [facility] Last Admin: 07/14/18 05:23 Dose: 60 mg Pantoprazole Sodium (Protonix Ec Tab) 40 mg PO DAILY [facility] Last Admin: 07/14/18 10:24 Dose: 40 mg Promethazine HCl/Codeine (Phenergan/Codeine Oral Syrup) 5 ml PO Q4H PRN PRN Reason: Cough and congestion Last Admin: 07/14/18 10:28 Dose: 5 ml Tiotropium [place] (Spiriva) 18 mcg INH RQ24 [facility] Last Admin: 07/14/18 08:00 Dose: Not Given Zolpidem Tartrate (Ambien) 5 mg PO HS [facility] Last Admin: 07/13/18 21:14 Dose: 5 mg - Labs Labs: 07/12/18 08:57 07/12/18 08:57
--- NOTE | 2018-07-14 14:07 | CP.PCM.PN ---
Subjective - Date & Time of Evaluation Date of Evaluation: 07/14/18 Time of Evaluation: 14:07 - Subjective Subjective: CHIEF COMPLAINTS TODAY : TMAX 99.3 VSS On BiPAP machine FEELS BETTER LESS COUGH HEENT : N. Resp : No hemoptysis +VE DRY COUGH Cardio : No anginal CP, PND, orthopnea, palpitation GI : No abd.pain, n/v ,diarrhea or GI bleeding . 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 Musculoskel : No joint swelling , Derm : No rash Psych : Normal affect. Ext : No swelling ,calf pain PE. Pt. is alert awake in no distress. V.S As noted in the chart Head ,ear nose,throat and eyes : Normal. Neck : Supple with normal carotids. Lungs: Clear air entry. Bilateral inspiratory and expiratory wheeze Heart : S1 & S2 normal with S4. No murmur. Abd : Soft non tender with normal bowel sounds. Neuro : Moves all ext. with no localized deficit. Ext : No edema with intact pulses.Non tender calves Derm : No rashes or decubitus ulcer. LABS/RADIOLOGY: REVIEWED ESR 21 WBC 17.0 IMPROVING Objective - Vital Signs/Intake and Output Vital Signs (last 24 hours): Temp Pulse Resp BP Pulse Ox 99.3 F 78 20 124/65 97 07/14/18 08:00 07/14/18 09:30 07/14/18 08:00 07/14/18 08:00 07/14/18 08:00 - Medications Medications: Current Medications Acetaminophen (Tylenol 325mg Tab) 650 mg PO Q6 PRN PRN Reason: Headache Last Admin: 07/11/18 22:22 Dose: 650 mg Albuterol/Ipratropium (Duoneb 3 Mg/0.5 Mg (3 Ml) Ud) 3 ml INH RQ4 [facility] Last Admin: 07/14/18 07:33 Dose: 3 ml Amlodipine Besylate (Norvasc) 5 mg PO DAILY [facility] Last Admin: 07/14/18 10:24 Dose: 5 mg Aspirin (Aspirin Chewable) 81 mg PO DAILY [facility] Last Admin: 07/14/18 10:24 Dose: 81 mg Enoxaparin Sodium (Lovenox) 60 mg SC DAILY [facility] Last Admin: 07/14/18 10:24 Dose: 60 mg Hydrochlorothiazide (Hydrodiuril) 25 mg PO DAILY [facility] Last Admin: 07/14/18 10:24 Dose: 25 mg Azithromycin 500 mg/ Sodium (Chloride) 250 mls @ 250 mls/hr IVPB Q24H [facility]; Protocol Last Admin: 07/13/18 17:54 Dose: 250 mls/hr Losartan Potassium (Cozaar) 100 mg PO DAILY [facility] Last Admin: 07/14/18 10:25 Dose: 100 mg Meclizine HCl (Antivert) 25 mg PO Q6 PRN PRN Reason: vertigo Memantine (Namenda) 5 mg PO DAILY [facility] Last Admin: 07/14/18 10:25 Dose: Not Given Methylprednisolone (Solu-Medrol) 60 mg IV Q8 [facility] Last Admin: 07/14/18 13:58 Dose: 60 mg Pantoprazole Sodium (Protonix Ec Tab) 40 mg PO DAILY [facility] Last Admin: 07/14/18 10:24 Dose: 40 mg Promethazine HCl/Codeine (Phenergan/Codeine Oral Syrup) 5 ml PO Q4H PRN PRN Reason: Cough and congestion Last Admin: 07/14/18 10:28 Dose: 5 ml Tiotropium [place] (Spiriva) 18 mcg INH RQ24 [facility] Last Admin: 07/14/18 08:00 Dose: Not Given Zolpidem Tartrate (Ambien) 5 mg PO HS [facility] Last Admin: 07/13/18 21:14 Dose: 5 mg - Labs Labs: 07/12/18 08:57 07/12/18 08:57 Assessment and Plan (1) Respiratory insufficiency Assessment & Plan: PT PRESENTLY ON BIPAP. IS COMFORTABLE. ON IV STEROIDS PER PULMONARY.07/12/18 CONTINUE IV AZITHROMAX 500MG IVPB Q 24HRLY.07/12/18. PERTUSSIS SEROLOGY/PCR.-P ATYPICAL TITRES- VE MYCOPLASMA/LEGIONELLA UR. AG. PULMONARY TOILET . Status: Acute (2) COPD exacerbation Assessment & Plan: PER PLMONARY ON DUONEB ON LAMA Status: Acute (3) HTN (hypertension) Status: Acute
--- NOTE | 2018-07-14 14:31 | CARD ---
APPROVED REPORT Date of service: 07/14/2018 EXAM: Two-dimensional and M-mode echocardiogram with Doppler and color Doppler. Other Information Quality : LimitedRhythm : Technically limited study due to body habitus. INDICATION COPD tds RISK FACTORS Hypertension Obesity 2D DIMENSIONS IVSd0.9 (0.7-1.1cm)LVDd3.9 (3.9-5.9cm) PWd1.0 (0.7-1.1cm)LVDs2.0 (2.5-4.0cm) FS (%) 48.8 %LVEF (%)80.8 (>50%) LVEF (Blevins's)80 %IVC0.00 cm M-Mode DIMENSIONS RVDd1.82 (2.1-3.2cm)Left Atrium (MM)3.34 (2.5-4.0cm) IVSd1.14 (0.7-1.1cm)Aortic Root2.66 (2.2-3.7cm) LVDd4.26 (4.0-5.6cm)Aortic Cusp Exc.1.78 (1.5-2.0cm) PWd1.17 (0.7-1.1cm)FS (%) 49 % LVDs2.18 (2.0-3.8cm)LVEF (%)81 (>50%) Mitral Valve MV E [id number]/sMV A Umxqtjtc843.2cm/sE/A ratio0.9 TDI Lateral E' Peak V9.26cm/sMedial E' Peak V9.13cm/sE/Lateral E'13.2 E/Medial E'13.4 Tricuspid Valve TR Peak [id number]/sTR Peak Gr.[id number] LEFT VENTRICLE The left ventricle is normal size. There is normal left ventricular wall thickness. The left ventricular function is normal. The left ventricular ejection fraction is within the normal range. No regional wall motion abnormalities noted. The left ventricular diastolic function is normal. No left ventricle thrombus noted on this study. There is no ventricular septal defect visualized. There is no left ventricular aneurysm. There is no mass noted in the left ventricle. RIGHT VENTRICLE The right ventricle is normal size. There is normal right ventricular wall thickness. The right ventricular systolic function is normal. ATRIA The left atrium size is normal. The right atrium size is normal. The interatrial septum is intact with no evidence for an atrial septal defect. AORTIC VALVE The aortic valve is normal in structure and function. No aortic regurgitation is present. There is no aortic valvular stenosis. There is no aortic valvular vegetation. MITRAL VALVE The mitral valve is normal in structure and function. There is no evidence of mitral valve prolapse. There is no mitral valve stenosis. There is no mitral valve regurgitation noted. TRICUSPID VALVE The tricuspid valve is normal in structure and function. There is no tricuspid valve regurgitation noted. There is no tricuspid valve prolapse or vegetation. There is no tricuspid valve stenosis. PULMONIC VALVE The pulmonary valve is normal in structure and function. There is no pulmonic valvular regurgitation. There is no pulmonic valvular stenosis. GREAT VESSELS The aortic root is normal in size. The ascending aorta is normal in size. The pulmonary artery is normal. The IVC is normal in size and collapses >50% with inspiration. PERICARDIAL EFFUSION The pericardium appears normal. There is no pleural effusion. <Conclusion> The left ventricular function is normal. The left ventricular ejection fraction is within the normal range. No regional wall motion abnormalities noted.
[2018-07-14] MEDS: Azithromycin 500 MG in Sodium Chloride 0.9% 250 ML IVPB SCH (16:14)
--- NOTE | 2018-07-14 17:55 | CP.PCM.PN ---
Subjective - Date & Time of Evaluation Date of Evaluation: 07/14/18 Time of Evaluation: 10:20 - Subjective Subjective: Patient seen and examined at bedside, lying down comfortably with BiPAP machine treatment. Improved after BiPAP, less cough. Wheezing bilaterally. WBC: 17.2 Glucose: 212 BUN: 31 Creatinine: 0.6 07/09: Blood culture - no growth after 4 days, gram stain pending Mycoplasma pneumonia IgM serology negative Continue nebulizer IV steroids and IV antibiotics. followup ABG Objective - Vital Signs/Intake and Output Vital Signs (last 24 hours): Temp Pulse Resp BP Pulse Ox 97.2 F L 83 20 129/56 L 98 07/14/18 17:00 07/14/18 17:00 07/14/18 17:00 07/14/18 17:00 07/14/18 17:00 - Medications Medications: Current Medications Acetaminophen (Tylenol 325mg Tab) 650 mg PO Q6 PRN PRN Reason: Headache Last Admin: 07/11/18 22:22 Dose: 650 mg Albuterol/Ipratropium (Duoneb 3 Mg/0.5 Mg (3 Ml) Ud) 3 ml INH RQ4 [facility] Last Admin: 07/14/18 11:55 Dose: 3 ml Amlodipine Besylate (Norvasc) 5 mg PO DAILY [facility] Last Admin: 07/14/18 10:24 Dose: 5 mg Aspirin (Aspirin Chewable) 81 mg PO DAILY [facility] Last Admin: 07/14/18 10:24 Dose: 81 mg Enoxaparin Sodium (Lovenox) 60 mg SC DAILY [facility] Last Admin: 07/14/18 10:24 Dose: 60 mg Hydrochlorothiazide (Hydrodiuril) 25 mg PO DAILY [facility] Last Admin: 07/14/18 10:24 Dose: 25 mg Azithromycin 500 mg/ Sodium (Chloride) 250 mls @ 250 mls/hr IVPB Q24H [facility]; Protocol Last Admin: 07/14/18 16:14 Dose: 250 mls/hr Losartan Potassium (Cozaar) 100 mg PO DAILY [facility] Last Admin: 07/14/18 10:25 Dose: 100 mg Meclizine HCl (Antivert) 25 mg PO Q6 PRN PRN Reason: vertigo Memantine (Namenda) 5 mg PO DAILY [facility] Last Admin: 07/14/18 10:25 Dose: Not Given Methylprednisolone (Solu-Medrol) 60 mg IV Q8 [facility] Last Admin: 07/14/18 13:58 Dose: 60 mg Pantoprazole Sodium (Protonix Ec Tab) 40 mg PO DAILY [facility] Last Admin: 07/14/18 10:24 Dose: 40 mg Promethazine HCl/Codeine (Phenergan/Codeine Oral Syrup) 5 ml PO Q4H PRN PRN Reason: Cough and congestion Last Admin: 07/14/18 16:36 Dose: 5 ml Tiotropium [place] (Spiriva) 18 mcg INH RQ24 [facility] Last Admin: 07/14/18 08:00 Dose: Not Given Zolpidem Tartrate (Ambien) 5 mg PO HS [facility] Last Admin: 07/13/18 21:14 Dose: 5 mg - Labs Labs: 07/12/18 08:57 07/12/18 08:57 Assessment and Plan (1) COPD exacerbation Status: Acute (2) Respiratory insufficiency Status: Acute
[2018-07-15] MEDS: Albuterol-Ipratrop 3 mg / 0.5 (3 ml) UD INH SCH ×2 (00:46→19:18)
[2018-07-15] MEDS: Promethazine/Cod 6.25mg-10mg/5ml Syr UD PO PRN ×3 (01:22→21:39)
[2018-07-15] MEDS: Tiotropium 18 mcg Cap For Inhalation INH SCH (08:38)
[2018-07-15] MEDS: Pantoprazole 40 mg EC Tab PO SCH (09:10)
[2018-07-15] MEDS: Enoxaparin 60 mg Syringe SC SCH (09:10)
--- NOTE | 2018-07-15 13:30 | RAD ---
Date of service: 07/11/2018 HISTORY: sob, wheezing COMPARISON: 07/09/2018 FINDINGS: LUNGS: No active pulmonary disease. PLEURA: No significant pleural effusion identified, no pneumothorax apparent. CARDIOVASCULAR: Atherosclerotic calcifications identified primarily aortic arch. No radiographic findings to suggest acute or significant cardiovascular disease. OSSEOUS STRUCTURES: No significant abnormalities. VISUALIZED UPPER ABDOMEN: Normal. OTHER FINDINGS: None. IMPRESSION: No active disease. No significant interval change compared to the prior examination(s).
--- NOTE | 2018-07-15 14:11 | CP.PCM.PN ---
Subjective - Date & Time of Evaluation Date of Evaluation: 07/15/18 Time of Evaluation: 14:11 - Subjective Subjective: CHIEF COMPLAINTS TODAY : Patient is improving on BiPAP machine with less cough and wheezing HEENT : N. Resp : No hemoptysis Cardio : No anginal CP, PND, orthopnea, palpitation GI : No abd.pain, n/v ,diarrhea or GI bleeding . 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 Musculoskel : No joint swelling , Derm : No rash Psych : Normal affect. Ext : No swelling ,calf pain PE. Pt. is alert awake in no distress. V.S As noted in the chart Head ,ear nose,throat and eyes : Normal. Neck : Supple with normal carotids. Lungs: Clear air entry. Bilateral inspiratory and expiratory wheeze Heart : S1 & S2 normal with S4. No murmur. Abd : Soft non tender with normal bowel sounds. Neuro : Moves all ext. with no localized deficit. Ext : No edema with intact pulses.Non tender calves Derm : No rashes or decubitus ulcer. LABS/RADIOLOGY: ASSESSMENT/PLAN : Continue nebulizer IV antibiotic and steroids.And BiPAP. Objective - Vital Signs/Intake and Output Vital Signs (last 24 hours): Temp Pulse Resp BP Pulse Ox 97.4 F L 68 20 145/53 L 100 07/15/18 07:20 07/15/18 07:20 07/15/18 07:20 07/15/18 07:20 07/15/18 07:20 - Medications Medications: Current Medications Acetaminophen (Tylenol 325mg Tab) 650 mg PO Q6 PRN PRN Reason: Headache Last Admin: 07/14/18 21:36 Dose: 650 mg Amlodipine Besylate (Norvasc) 5 mg PO DAILY [facility] Last Admin: 07/15/18 09:10 Dose: 5 mg Aspirin (Aspirin Chewable) 81 mg PO DAILY [facility] Last Admin: 07/15/18 09:10 Dose: 81 mg Enoxaparin Sodium (Lovenox) 60 mg SC DAILY [facility] Last Admin: 07/15/18 09:10 Dose: 60 mg Hydrochlorothiazide (Hydrodiuril) 25 mg PO DAILY [facility] Last Admin: 07/15/18 09:10 Dose: 25 mg Azithromycin 500 mg/ Sodium (Chloride) 250 mls @ 250 mls/hr IVPB Q24H [facility]; Protocol Last Admin: 07/14/18 16:14 Dose: 250 mls/hr Losartan Potassium (Cozaar) 100 mg PO DAILY [facility] Last Admin: 07/15/18 09:10 Dose: 100 mg Meclizine HCl (Antivert) 25 mg PO Q6 PRN PRN Reason: vertigo Memantine (Namenda) 5 mg PO DAILY [facility] Last Admin: 07/15/18 09:15 Dose: Not Given Methylprednisolone (Solu-Medrol) 40 mg IV Q8 [facility] Pantoprazole Sodium (Protonix Ec Tab) 40 mg PO DAILY [facility] Last Admin: 07/15/18 09:10 Dose: 40 mg Promethazine HCl/Codeine (Phenergan/Codeine Oral Syrup) 5 ml PO Q4H PRN PRN Reason: Cough and congestion Last Admin: 07/15/18 09:11 Dose: 5 ml Tiotropium [place] (Spiriva) 18 mcg INH RQ24 [facility] Last Admin: 07/15/18 08:38 Dose: 18 mcg Zolpidem Tartrate (Ambien) 5 mg PO HS [facility] Last Admin: 07/14/18 21:48 Dose: 5 mg - Labs Labs: 07/12/18 08:57 07/12/18 08:57
[2018-07-15] MEDS: Azithromycin 500 MG in Sodium Chloride 0.9% 250 ML IVPB SCH (17:01)
--- NOTE | 2018-07-15 17:36 | CP.PCM.PN ---
Subjective - Date & Time of Evaluation Date of Evaluation: 07/15/18 Time of Evaluation: 11:45 - Subjective Subjective: Patient seen and examined at bedside, lying down comfortably. Patient has BiPAP machine present and shows improvement, less cough. Wheezing present bilaterally. Afebrile and in no acute distress. Denies SOB, cough, chest pain, fever/chills ESR 21 on 07/13/18 Continue nebulizer, IV Steroids, and IV Abx ABG (07/12): pCO2 57, pO2 47. HCO3 27.5, pH 7.34 Objective - Vital Signs/Intake and Output Vital Signs (last 24 hours): Temp Pulse Resp BP Pulse Ox 97.8 F 72 20 124/56 L 97 07/15/18 16:00 07/15/18 16:00 07/15/18 16:00 07/15/18 16:00 07/15/18 16:00 - Medications Medications: Current Medications Acetaminophen (Tylenol 325mg Tab) 650 mg PO Q6 PRN PRN Reason: Headache Last Admin: 07/14/18 21:36 Dose: 650 mg Amlodipine Besylate (Norvasc) 5 mg PO DAILY [facility] Last Admin: 07/15/18 09:10 Dose: 5 mg Aspirin (Aspirin Chewable) 81 mg PO DAILY [facility] Last Admin: 07/15/18 09:10 Dose: 81 mg Enoxaparin Sodium (Lovenox) 60 mg SC DAILY [facility] Last Admin: 07/15/18 09:10 Dose: 60 mg Hydrochlorothiazide (Hydrodiuril) 25 mg PO DAILY [facility] Last Admin: 07/15/18 09:10 Dose: 25 mg Azithromycin 500 mg/ Sodium (Chloride) 250 mls @ 250 mls/hr IVPB Q24H [facility]; Protocol Last Admin: 07/15/18 17:01 Dose: 250 mls/hr Losartan Potassium (Cozaar) 100 mg PO DAILY [facility] Last Admin: 07/15/18 09:10 Dose: 100 mg Meclizine HCl (Antivert) 25 mg PO Q6 PRN PRN Reason: vertigo Memantine (Namenda) 5 mg PO DAILY [facility] Last Admin: 07/15/18 09:15 Dose: Not Given Methylprednisolone (Solu-Medrol) 40 mg IV Q8 [facility] Pantoprazole Sodium (Protonix Ec Tab) 40 mg PO DAILY [facility] Last Admin: 07/15/18 09:10 Dose: 40 mg Promethazine HCl/Codeine (Phenergan/Codeine Oral Syrup) 5 ml PO Q4H PRN PRN Reason: Cough and congestion Last Admin: 07/15/18 09:11 Dose: 5 ml Tiotropium [place] (Spiriva) 18 mcg INH RQ24 [facility] Last Admin: 07/15/18 08:38 Dose: 18 mcg Zolpidem Tartrate (Ambien) 5 mg PO HS [facility] Last Admin: 07/14/18 21:48 Dose: 5 mg - Labs Labs: 07/12/18 08:57 07/12/18 08:57 Assessment and Plan (1) COPD exacerbation Status: Acute (2) Respiratory insufficiency Status: Acute
[2018-07-15 18:11] LABS: ABG ALLEN TEST POS; ARTERIAL BLOOD GAS HCO3 38.8 mmol/L (21-28); ARTERIAL BLOOD GAS HEMOGLOBIN 12.7 g/dL (11.7-17.4); ARTERIAL BLOOD GAS O2 SAT 91.5 % (95-98); ARTERIAL BLOOD GAS PCO2 87 mm/Hg (35-45); ARTERIAL BLOOD GAS PH 7.35 (7.35-7.45); ARTERIAL BLOOD GAS PO2 57 mm/Hg (80-100); ARTERIAL BLOOD GAS TCO2 50.7 mmol/L (22-28)
[2018-07-15 20:27] LABS: ABG ALLEN TEST POS; ARTERIAL BLOOD GAS HCO3 39.1 mmol/L (21-28); ARTERIAL BLOOD GAS HEMOGLOBIN 12.7 g/dL (11.7-17.4); ARTERIAL BLOOD GAS O2 SAT 99.3 % (95-98); ARTERIAL BLOOD GAS PCO2 78 mm/Hg (35-45); ARTERIAL BLOOD GAS PH 7.39 (7.35-7.45); ARTERIAL BLOOD GAS PO2 170 mm/Hg (80-100); ARTERIAL BLOOD GAS TCO2 49.6 mmol/L (22-28)
[2018-07-15] MEDS: MethylPREDNISolone 40 mg Vial IV SCH (21:39)
--- NOTE | 2018-07-15 23:50 | CP.PCM.PN ---
Subjective - Date & Time of Evaluation Date of Evaluation: 07/15/18 Time of Evaluation: 23:49 - Subjective Subjective: CHIEF COMPLAINTS TODAY : VSS afebrile On BiPAP machine FEELS BETTER LESS COUGH HEENT : N. Resp : No hemoptysis +VE DRY COUGH Cardio : No anginal CP, PND, orthopnea, palpitation GI : No abd.pain, n/v ,diarrhea or GI bleeding . 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 Musculoskel : No joint swelling , Derm : No rash Psych : Normal affect. Ext : No swelling ,calf pain PE. Pt. is alert awake in no distress. V.S As noted in the chart Head ,ear nose,throat and eyes : Normal. Neck : Supple with normal carotids. Lungs: Clear air entry. Bilateral inspiratory and expiratory wheeze Heart : S1 & S2 normal with S4. No murmur. Abd : Soft non tender with normal bowel sounds. Neuro : Moves all ext. with no localized deficit. Ext : No edema with intact pulses.Non tender calves Derm : No rashes or decubitus ulcer. LABS/RADIOLOGY: REVIEWED Mycoplasma IgM negative Legionella urinary antigen negative. ESR 21 WBC 17.0 IMPROVING Objective - Vital Signs/Intake and Output Vital Signs (last 24 hours): Temp Pulse Resp BP Pulse Ox 97.8 F 72 20 124/56 L 97 07/15/18 16:00 07/15/18 19:19 07/15/18 16:00 07/15/18 16:00 07/15/18 16:00 - Medications Medications: Current Medications Acetaminophen (Tylenol 325mg Tab) 650 mg PO Q6 PRN PRN Reason: Headache Last Admin: 07/14/18 21:36 Dose: 650 mg Albuterol/Ipratropium (Duoneb 3 Mg/0.5 Mg (3 Ml) Ud) 3 ml INH RQ6 [facility] Last Admin: 07/15/18 19:18 Dose: 3 ml Amlodipine Besylate (Norvasc) 5 mg PO DAILY [facility] Last Admin: 07/15/18 09:10 Dose: 5 mg Aspirin (Aspirin Chewable) 81 mg PO DAILY [facility] Last Admin: 07/15/18 09:10 Dose: 81 mg Enoxaparin Sodium (Lovenox) 60 mg SC DAILY [facility] Last Admin: 07/15/18 09:10 Dose: 60 mg Hydrochlorothiazide (Hydrodiuril) 25 mg PO DAILY [facility] Last Admin: 07/15/18 09:10 Dose: 25 mg Azithromycin 500 mg/ Sodium (Chloride) 250 mls @ 250 mls/hr IVPB Q24H [facility]; Protocol Last Admin: 07/15/18 17:01 Dose: 250 mls/hr Losartan Potassium (Cozaar) 100 mg PO DAILY [facility] Last Admin: 07/15/18 09:10 Dose: 100 mg Meclizine HCl (Antivert) 25 mg PO Q6 PRN PRN Reason: vertigo Memantine (Namenda) 5 mg PO DAILY [facility] Last Admin: 07/15/18 09:15 Dose: Not Given Methylprednisolone (Solu-Medrol) 40 mg IV Q8 [facility] Last Admin: 07/15/18 21:39 Dose: 40 mg Pantoprazole Sodium (Protonix Ec Tab) 40 mg PO DAILY [facility] Last Admin: 07/15/18 09:10 Dose: 40 mg Promethazine HCl/Codeine (Phenergan/Codeine Oral Syrup) 5 ml PO Q4H PRN PRN Reason: Cough and congestion Last Admin: 07/15/18 21:39 Dose: 5 ml Tiotropium [place] (Spiriva) 18 mcg INH RQ24 [facility] Last Admin: 07/15/18 08:38 Dose: 18 mcg Zolpidem Tartrate (Ambien) 5 mg PO HS [facility] Last Admin: 07/15/18 21:39 Dose: 5 mg - Labs Labs: 07/12/18 08:57 07/12/18 08:57 Assessment and Plan (1) Respiratory insufficiency Assessment & Plan: PT PRESENTLY ON BIPAP. IS COMFORTABLE. ON IV STEROIDS PER PULMONARY.07/12/18 CONTINUE IV AZITHROMAX 500MG IVPB Q 24HRLY.07/12/18. PERTUSSIS SEROLOGY/PCR.-P continue pulmonary toilet. f/u CBC with differential/BMP in am. Status: Acute (2) COPD exacerbation Assessment & Plan: patient on DuoNeb treatments As per pulmonary on IV steroids. Status: Acute (3) HTN (hypertension) Status: Acute
[2018-07-16] MEDS: Albuterol-Ipratrop 3 mg / 0.5 (3 ml) UD INH SCH ×4 (01:50→20:28)
[2018-07-16] MEDS: Promethazine/Cod 6.25mg-10mg/5ml Syr UD PO PRN ×3 (04:05→21:15)
[2018-07-16] MEDS: MethylPREDNISolone 40 mg Vial IV SCH ×3 (06:15→21:15)
[2018-07-16] MEDS: Tiotropium 18 mcg Cap For Inhalation INH SCH ×2 (08:30→08:33)
[2018-07-16] MEDS: Pantoprazole 40 mg EC Tab PO SCH (09:31)
[2018-07-16] MEDS: Enoxaparin 60 mg Syringe SC SCH (09:32)
--- NOTE | 2018-07-16 14:22 | CP.PCM.PN ---
Subjective - Date & Time of Evaluation Date of Evaluation: 07/16/18 Time of Evaluation: 14:22 - Subjective Subjective: CHIEF COMPLAINTS TODAY : Patient is improving on BiPAP machine with less cough and wheezing HEENT : N. Resp : No hemoptysis Cardio : No anginal CP, PND, orthopnea, palpitation GI : No abd.pain, n/v ,diarrhea or GI bleeding . 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 Musculoskel : No joint swelling , Derm : No rash Psych : Normal affect. Ext : No swelling ,calf pain PE. Pt. is alert awake in no distress. V.S As noted in the chart Head ,ear nose,throat and eyes : Normal. Neck : Supple with normal carotids. Lungs: Clear air entry. Bilateral inspiratory and expiratory wheeze Heart : S1 & S2 normal with S4. No murmur. Abd : Soft non tender with normal bowel sounds. Neuro : Moves all ext. with no localized deficit. Ext : No edema with intact pulses.Non tender calves Derm : No rashes or decubitus ulcer. LABS/RADIOLOGY: ASSESSMENT/PLAN : Continue nebulizer IV antibiotic and steroids.And BiPAP. Objective - Vital Signs/Intake and Output Vital Signs (last 24 hours): Temp Pulse Resp BP Pulse Ox 97.4 F L 65 20 148/71 99 07/16/18 07:00 07/16/18 07:00 07/16/18 07:00 07/16/18 07:00 07/16/18 07:00 - Medications Medications: Current Medications Acetaminophen (Tylenol 325mg Tab) 650 mg PO Q6 PRN PRN Reason: Headache Last Admin: 07/16/18 00:08 Dose: 650 mg Albuterol/Ipratropium (Duoneb 3 Mg/0.5 Mg (3 Ml) Ud) 3 ml INH RQ6 [facility] Last Admin: 07/16/18 08:30 Dose: 3 ml Amlodipine Besylate (Norvasc) 5 mg PO DAILY [facility] Last Admin: 07/16/18 09:31 Dose: 5 mg Aspirin (Aspirin Chewable) 81 mg PO DAILY [facility] Last Admin: 07/16/18 09:31 Dose: 81 mg Enoxaparin Sodium (Lovenox) 60 mg SC DAILY [facility] Last Admin: 07/16/18 09:32 Dose: 60 mg Hydrochlorothiazide (Hydrodiuril) 25 mg PO DAILY [facility] Last Admin: 12/05/18 09:31 Dose: 25 mg Azithromycin 500 mg/ Sodium (Chloride) 250 mls @ 250 mls/hr IVPB Q24H [facility]; Protocol Last Admin: 07/15/18 17:01 Dose: 250 mls/hr Losartan Potassium (Cozaar) 100 mg PO DAILY [facility] Last Admin: 07/16/18 09:31 Dose: 100 mg Meclizine HCl (Antivert) 25 mg PO Q6 PRN PRN Reason: vertigo Memantine (Namenda) 5 mg PO DAILY [facility] Last Admin: 07/16/18 09:32 Dose: 5 mg Methylprednisolone (Solu-Medrol) 40 mg IV Q8 [facility] Last Admin: 07/16/18 13:33 Dose: 40 mg Pantoprazole Sodium (Protonix Ec Tab) 40 mg PO DAILY [facility] Last Admin: 07/16/18 09:31 Dose: 40 mg Promethazine HCl/Codeine (Phenergan/Codeine Oral Syrup) 5 ml PO Q4H PRN PRN Reason: Cough and congestion Last Admin: 07/16/18 09:41 Dose: 5 ml Tiotropium [place] (Spiriva) 18 mcg INH RQ24 [facility] Last Admin: 07/16/18 08:33 Dose: Not Given Zolpidem Tartrate (Ambien) 5 mg PO HS [facility] Last Admin: 07/15/18 21:39 Dose: 5 mg - Labs Labs: 07/12/18 08:57 07/12/18 08:57
[2018-07-16] MEDS ORDERED: Dextrose 50% SYRINGE Inj (50 ml) IV PRN (14:26)
[2018-07-16] MEDS ORDERED: Glucagon Recombinant 1 mg Inj IM PRN (14:26)
[2018-07-16 16:09] LABS: ABG ALLEN TEST POS; ARTERIAL BLOOD GAS HCO3 39.5 mmol/L (21-28); ARTERIAL BLOOD GAS HEMOGLOBIN 11.6 g/dL (11.7-17.4); ARTERIAL BLOOD GAS O2 SAT 100.4 % (95-98); ARTERIAL BLOOD GAS PCO2 64 mm/Hg (35-45); ARTERIAL BLOOD GAS PH 7.46 (7.35-7.45); ARTERIAL BLOOD GAS PO2 113 mm/Hg (80-100); ARTERIAL BLOOD GAS TCO2 47.5 mmol/L (22-28)
--- NOTE | 2018-07-16 16:23 | CP.PCM.PN ---
Subjective - Date & Time of Evaluation Date of Evaluation: 07/16/18 Time of Evaluation: 11:20 - Subjective Subjective: Patient seen and examined at bedside, lying down comfortably with BiPAP machine treatment. Improved after BiPAP, less cough. Wheezing bilaterally. Denies SOB, cough, chest pain, fever/chills. ABG 07/15: pCO2 78 H, pO2 170 H, HCO3 39.1 H, pH 7.39 T: 97.4F Glucose: 142 07/09: Blood culture - no growth after 4 days, gram stain pending Mycoplasma pneumonia IgM serology negative Legionella urinary antigen negative. ESR 21 on 07/13/18 WBC 17 improving Continue nebulizer IV steroids and IV antibiotics. Repeat ABG. Objective - Vital Signs/Intake and Output Vital Signs (last 24 hours): Temp Pulse Resp BP Pulse Ox 97.4 F L 65 20 148/71 99 07/16/18 07:00 07/16/18 07:00 07/16/18 07:00 07/16/18 07:00 07/16/18 07:00 - Medications Medications: Current Medications Acetaminophen (Tylenol 325mg Tab) 650 mg PO Q6 PRN PRN Reason: Headache Last Admin: 07/16/18 00:08 Dose: 650 mg Albuterol/Ipratropium (Duoneb 3 Mg/0.5 Mg (3 Ml) Ud) 3 ml INH RQ6 [facility] Last Admin: 07/16/18 13:55 Dose: 3 ml Amlodipine Besylate (Norvasc) 5 mg PO DAILY [facility] Last Admin: 07/16/18 09:31 Dose: 5 mg Aspirin (Aspirin Chewable) 81 mg PO DAILY [facility] Last Admin: 07/16/18 09:31 Dose: 81 mg Dextrose (Dextrose 50% Inj) 0 ml IV STAT PRN; Protocol PRN Reason: Hypoglycemia Protocol Dextrose (Glutose 15) 0 gm PO ONCE PRN; Protocol PRN Reason: Hypoglycemia Protocol Enoxaparin Sodium (Lovenox) 60 mg SC DAILY [facility] Last Admin: 07/16/18 09:32 Dose: 60 mg Glucagon (Glucagen Diagnostic Kit) 1 mg IM STAT PRN; Protocol PRN Reason: Hypoglycemia Protocol Hydrochlorothiazide (Hydrodiuril) 25 mg PO DAILY [facility] Last Admin: 07/16/18 09:31 Dose: 25 mg Azithromycin 500 mg/ Sodium (Chloride) 250 mls @ 250 mls/hr IVPB Q24H [facility]; [facility] Last Admin: 07/15/18 17:01 Dose: 250 mls/hr Dextrose (Dextrose 5% In Water 1000 Ml) 1,000 mls @ 0 mls/hr IV .Q0M PRN; Protocol PRN Reason: Hypoglycemia Protocol Insulin Aspart (Novolog) 0 unit SC ACHS [facility]; Protocol Losartan Potassium (Cozaar) 100 mg PO DAILY [facility] Last Admin: 07/16/18 09:31 Dose: 100 mg Meclizine HCl (Antivert) 25 mg PO Q6 PRN PRN Reason: vertigo Memantine (Namenda) 5 mg PO DAILY [facility] Last Admin: 07/16/18 09:32 Dose: 5 mg Methylprednisolone (Solu-Medrol) 40 mg IV Q8 [facility] Last Admin: 07/16/18 13:33 Dose: 40 mg Pantoprazole Sodium (Protonix Ec Tab) 40 mg PO DAILY [facility] Last Admin: 07/16/18 09:31 Dose: 40 mg Promethazine HCl/Codeine (Phenergan/Codeine Oral Syrup) 5 ml PO Q4H PRN PRN Reason: Cough and congestion Last Admin: 07/16/18 09:41 Dose: 5 ml Tiotropium [place] (Spiriva) 18 mcg INH RQ24 [facility] Last Admin: 07/16/18 08:33 Dose: Not Given Zolpidem Tartrate (Ambien) 5 mg PO HS [facility] Last Admin: 07/15/18 21:39 Dose: 5 mg - Labs Labs: 07/12/18 08:57 07/12/18 08:57 - Head Exam Head Exam: ATRAUMATIC, NORMOCEPHALIC - ENT Exam ENT Exam: Mucous Membranes Moist - Neck Exam Neck Exam: Normal Inspection - Respiratory Exam Respiratory Exam: Decreased Breath Sounds - Cardiovascular Exam Cardiovascular Exam: REGULAR RHYTHM - GI/Abdominal Exam GI & Abdominal Exam: Soft, Normal Bowel Sounds - Extremities Exam Extremities Exam: Normal Inspection - Neurological Exam Neurological Exam: Alert Assessment and Plan (1) COPD exacerbation Status: Acute (2) Respiratory insufficiency Status: Acute
[2018-07-16] MEDS: Azithromycin 500 MG in Sodium Chloride 0.9% 250 ML IVPB SCH (17:37)
[2018-07-16] MEDS: (Novolog) Insulin Aspart, Recombinant 100 u/ml 10 ml vial SC SCH ×2 (17:38→21:08)
[2018-07-16 18:29] LABS: FHA IGA 76 IU/mL; FHA IGG 31 IU/mL; PT IGG 86 IU/mL
--- NOTE | 2018-07-16 22:50 | CP.PCM.PN ---
Subjective - Date & Time of Evaluation Date of Evaluation: 07/16/18 Time of Evaluation: 22:50 - Subjective Subjective: CHIEF COMPLAINTS TODAY : VSS afebrile On BiPAP machine FEELS BETTER LESS COUGH NO AEON HEENT : N. Resp : No hemoptysis +VE DRY COUGH Cardio : No anginal CP, PND, orthopnea, palpitation GI : No abd.pain, n/v ,diarrhea or GI bleeding . 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 Musculoskel : No joint swelling , Derm : No rash Psych : Normal affect. Ext : No swelling ,calf pain PE. Pt. is alert awake in no distress. V.S As noted in the chart Head ,ear nose,throat and eyes : Normal. Neck : Supple with normal carotids. Lungs: Clear air entry. Bilateral inspiratory and expiratory wheeze Heart : S1 & S2 normal with S4. No murmur. Abd : Soft non tender with normal bowel sounds. Neuro : Moves all ext. with no localized deficit. Ext : No edema with intact pulses.Non tender calves Derm : No rashes or decubitus ulcer. LABS/RADIOLOGY: REVIEWED (PERTUSSIS IGG, IGA +VE AB Mycoplasma IgM negative Legionella urinary antigen negative. ESR 21 WBC 17.0 IMPROVING Objective - Vital Signs/Intake and Output Vital Signs (last 24 hours): Temp Pulse Resp BP Pulse Ox 97.7 F 75 20 131/57 L 98 07/16/18 15:48 07/16/18 20:31 07/16/18 15:48 07/16/18 15:48 07/16/18 15:48 - Medications Medications: Current Medications Acetaminophen (Tylenol 325mg Tab) 650 mg PO Q6 PRN PRN Reason: Headache Last Admin: 07/16/18 00:08 Dose: 650 mg Albuterol/Ipratropium (Duoneb 3 Mg/0.5 Mg (3 Ml) Ud) 3 ml INH RQ6 [facility] Last Admin: 07/16/18 20:28 Dose: 3 ml Amlodipine Besylate (Norvasc) 5 mg PO DAILY [facility] Last Admin: 07/16/18 09:31 Dose: 5 mg Aspirin (Aspirin Chewable) 81 mg PO DAILY [facility] Last Admin: 07/16/18 09:31 Dose: 81 mg Dextrose (Dextrose 50% Inj) 0 ml IV STAT PRN; Protocol PRN Reason: Hypoglycemia Protocol Dextrose (Glutose 15) 0 gm PO ONCE PRN; Protocol PRN Reason: Hypoglycemia Protocol Enoxaparin Sodium (Lovenox) 60 mg SC DAILY [facility] Last Admin: 07/16/18 09:32 Dose: 60 mg Glucagon (Glucagen Diagnostic Kit) 1 mg IM STAT PRN; Protocol PRN Reason: Hypoglycemia Protocol Hydrochlorothiazide (Hydrodiuril) 25 mg PO DAILY [facility] Last Admin: 07/16/18 09:31 Dose: 25 mg Azithromycin 500 mg/ Sodium (Chloride) 250 mls @ 250 mls/hr IVPB Q24H [facility]; Protocol Last Admin: 07/16/18 17:37 Dose: 250 mls/hr Dextrose (Dextrose 5% In Water 1000 Ml) 1,000 mls @ 0 mls/hr IV .Q0M PRN; Protocol PRN Reason: Hypoglycemia Protocol Insulin Aspart (Novolog) 0 unit SC ACHS [facility]; Protocol Last Admin: 07/16/18 21:08 Dose: Not Given Losartan Potassium (Cozaar) 100 mg PO DAILY [facility] Last Admin: 07/16/18 09:31 Dose: 100 mg Meclizine HCl (Antivert) 25 mg PO Q6 PRN PRN Reason: vertigo Memantine (Namenda) 5 mg PO DAILY [facility] Last Admin: 07/16/18 09:32 Dose: 5 mg Methylprednisolone (Solu-Medrol) 40 mg IV Q8 [facility] Last Admin: 07/16/18 21:15 Dose: 40 mg Pantoprazole Sodium (Protonix Ec Tab) 40 mg PO DAILY [facility] Last Admin: 07/16/18 09:31 Dose: 40 mg Promethazine HCl/Codeine (Phenergan/Codeine Oral Syrup) 5 ml PO Q4H PRN PRN Reason: Cough and congestion Last Admin: 07/16/18 21:15 Dose: 5 ml Tiotropium [place] (Spiriva) 18 mcg INH RQ24 [facility] Last Admin: 07/16/18 08:33 Dose: Not Given Zolpidem Tartrate (Ambien) 5 mg PO HS [facility] Last Admin: 07/16/18 21:15 Dose: 5 mg - Labs Labs: 07/12/18 08:57 07/12/18 08:57 Assessment and Plan (1) Respiratory insufficiency Assessment & Plan: PT PRESENTLY ON BIPAP. IS COMFORTABLE. ON IV STEROIDS PER PULMONARY.07/12/18 CONTINUE IV AZITHROMAX 500MG IVPB Q 24HRLY.07/12/18. PERTUSSIS SEROLOGY+VE IGG /IGA -SUGGESTIVE OF RECENT INFECTION. WILL GIVE dTap IM IN AM continue pulmonary toilet. CLOSE CONTACTS-HOUSEHOLD TO TO GET ZITHROMX 500MG OD X5 DAYS DROPLET PRECAUTIONS Status: Acute (2) COPD exacerbation Status: Acute (3) HTN (hypertension) Status: Acute
[2018-07-17] MEDS: Albuterol-Ipratrop 3 mg / 0.5 (3 ml) UD INH SCH ×4 (01:29→20:25)
[2018-07-17] MEDS: MethylPREDNISolone 40 mg Vial IV SCH ×3 (05:11→21:58)
[2018-07-17 07:30] LABS: BASO % 0.3 % (0.0-2.0); HEMOGLOBIN 12.5 g/dL (11.0-16.0); LYMPH # 0.8 K/uL (1.0-4.3); LYMPH % 7.5 % (20.0-40.0); MEAN CELL VOLUME 90.3 fL (81.0-99.0); MEAN CORPUSCULAR HGB CONC 33.2 g/dL (33.0-37.0); MEAN PLATELET VOLUME 9.7 fL (7.2-11.7); MONO # 0.4 K/uL (0.0-0.8); MONO % 3.9 % (0.0-10.0); NEUT # 9.1 K/uL (1.8-7.0); NEUT % 88.3 % (50.0-75.0); NRBC % 0.1 % (0.0-2.0); PLATELET COUNT 258 K/uL (130-400); RBC 4.16 Mil/uL (3.80-5.20); RED CELL DISTRIBUTION WIDTH 13.2 % (11.5-14.5); WHITE BLOOD COUNT 10.3 K/uL (4.8-10.8)
[2018-07-17] MEDS: Tiotropium 18 mcg Cap For Inhalation INH SCH (07:32)
[2018-07-17 08:31] LABS: LYMPHOCYTE 6 % (20-40); MONOCYTE 5 % (0-10); NEUTROPHIL 89 % (50-75); TOTAL CELLS COUNTED 100
[2018-07-17 08:32] LABS: PLATELET ESTIMATE NORMAL (NORMAL)
[2018-07-17 08:49] LABS: ALB/GLOB RATIO 1.1 (1.0-2.1); ALBUMIN 3.4 g/dL (3.5-5.0); AST/SGOT 41 U/L (14-36); BILIRUBIN,DIRECT 0.4 mg/dL (0.0-0.4); BLOOD UREA NITROGEN 26 mg/dL (7-17); GFR NON-AFRICAN AMERICAN > 60
[2018-07-17] MEDS: (Novolog) Insulin Aspart, Recombinant 100 u/ml 10 ml vial SC SCH ×4 (08:49→21:48)
[2018-07-17 08:56] LABS: ALT/SGPT 110 U/L (9-52)
[2018-07-17] MEDS: Promethazine/Cod 6.25mg-10mg/5ml Syr UD PO PRN ×2 (09:50→22:02)
[2018-07-17] MEDS: Pantoprazole 40 mg EC Tab PO SCH (09:50)
[2018-07-17] MEDS: Enoxaparin 60 mg Syringe SC SCH (09:51)
--- NOTE | 2018-07-17 11:54 | CP.PCM.PN ---
Subjective - Date & Time of Evaluation Date of Evaluation: 07/17/18 Time of Evaluation: 11:38 - Subjective Subjective: Patient seen and examined Patient lying comfortably in no acute distress at On BiPAP Denies cough, denies fever chills, denies chest pain Patient is alert and oriented Objective - Vital Signs/Intake and Output Vital Signs (last 24 hours): Temp Pulse Resp BP Pulse Ox 97.7 F 66 20 147/63 100 07/17/18 09:00 07/17/18 10:20 07/17/18 09:00 07/17/18 09:00 07/17/18 09:00 - Medications Medications: Current Medications Acetaminophen (Tylenol 325mg Tab) 650 mg PO Q6 PRN PRN Reason: Headache Last Admin: 07/16/18 00:08 Dose: 650 mg Albuterol/Ipratropium (Duoneb 3 Mg/0.5 Mg (3 Ml) Ud) 3 ml INH RQ6 [facility] Last Admin: 07/17/18 07:31 Dose: 3 ml Amlodipine Besylate (Norvasc) 5 mg PO DAILY [facility] Last Admin: 07/17/18 09:50 Dose: 5 mg Aspirin (Aspirin Chewable) 81 mg PO DAILY [facility] Last Admin: 07/17/18 09:51 Dose: 81 mg Dextrose (Dextrose 50% Inj) 0 ml IV STAT PRN; Protocol PRN Reason: Hypoglycemia Protocol Dextrose (Glutose 15) 0 gm PO ONCE PRN; Protocol PRN Reason: Hypoglycemia Protocol Enoxaparin Sodium (Lovenox) 60 mg SC DAILY [facility] Last Admin: 07/17/18 09:51 Dose: 60 mg Glucagon (Glucagen Diagnostic Kit) 1 mg IM STAT PRN; Protocol PRN Reason: Hypoglycemia Protocol Hydrochlorothiazide (Hydrodiuril) 25 mg PO DAILY [facility] Last Admin: 07/17/18 09:51 Dose: 25 mg Azithromycin 500 mg/ Sodium (Chloride) 250 mls @ 250 mls/hr IVPB Q24H [facility]; Protocol Last Admin: 07/16/18 17:37 Dose: 250 mls/hr Dextrose (Dextrose 5% In Water 1000 Ml) 1,000 mls @ 0 mls/hr IV .Q0M PRN; Protocol PRN Reason: Hypoglycemia Protocol Insulin Aspart (Novolog) 0 unit SC ACHS [facility]; Protocol Last Admin: 07/17/18 08:49 Dose: 1 unit Losartan Potassium (Cozaar) 100 mg PO DAILY [facility] Last Admin: 07/17/18 09:50 Dose: 100 mg Meclizine HCl (Antivert) 25 mg PO Q6 PRN PRN Reason: vertigo Memantine (Namenda) 5 mg PO DAILY [facility] Last Admin: 07/17/18 09:51 Dose: Not Given Methylprednisolone (Solu-Medrol) 40 mg IV Q8 [facility] Last Admin: 07/17/18 05:11 Dose: 40 mg Pantoprazole Sodium (Protonix Ec Tab) 40 mg PO DAILY [facility] Last Admin: 07/17/18 09:50 Dose: 40 mg Promethazine HCl/Codeine (Phenergan/Codeine Oral Syrup) 5 ml PO Q4H PRN PRN Reason: Cough and congestion Last Admin: 07/17/18 09:50 Dose: 5 ml Tiotropium [place] (Spiriva) 18 mcg INH RQ24 [facility] Last Admin: 07/17/18 07:32 Dose: Not Given Zolpidem Tartrate (Ambien) 5 mg PO HS [facility] Last Admin: 07/16/18 21:15 Dose: 5 mg - Labs Labs: 07/17/18 07:22 07/17/18 07:22 - Head Exam Head Exam: ATRAUMATIC, NORMOCEPHALIC - ENT Exam ENT Exam: Mucous Membranes Moist - Neck Exam Neck Exam: Normal Inspection - Respiratory Exam Respiratory Exam: Decreased Breath Sounds - Cardiovascular Exam Cardiovascular Exam: REGULAR RHYTHM - GI/Abdominal Exam GI & Abdominal Exam: Soft, Normal Bowel Sounds Assessment and Plan (1) COPD exacerbation Assessment & Plan: patient is saturating well off BiPAP Patient will benefit from Trilogy Continue nebulizer treatment and IV STEROIDS On antibiotics Status: Acute (2) Respiratory insufficiency Status: Acute
--- NOTE | 2018-07-17 13:56 | CP.PCM.PN ---
Subjective - Date & Time of Evaluation Date of Evaluation: 07/17/18 Time of Evaluation: 13:56 - Subjective Subjective: CHIEF COMPLAINTS TODAY : Patient is improving on BiPAP machine with less cough and wheezing HEENT : N. Resp : No hemoptysis Cardio : No anginal CP, PND, orthopnea, palpitation GI : No abd.pain, n/v ,diarrhea or GI bleeding . 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 Musculoskel : No joint swelling , Derm : No rash Psych : Normal affect. Ext : No swelling ,calf pain PE. Pt. is alert awake in no distress. V.S As noted in the chart Head ,ear nose,throat and eyes : Normal. Neck : Supple with normal carotids. Lungs: Clear air entry. Bilateral inspiratory and expiratory wheeze Heart : S1 & S2 normal with S4. No murmur. Abd : Soft non tender with normal bowel sounds. Neuro : Moves all ext. with no localized deficit. Ext : No edema with intact pulses.Non tender calves Derm : No rashes or decubitus ulcer. LABS/RADIOLOGY: ASSESSMENT/PLAN : Continue nebulizer IV antibiotic and steroids.And BiPAP. Objective - Vital Signs/Intake and Output Vital Signs (last 24 hours): Temp Pulse Resp BP Pulse Ox 97.7 F 66 20 147/63 100 07/17/18 09:00 07/17/18 10:20 07/17/18 09:00 07/17/18 09:00 07/17/18 09:00 - Medications Medications: Current Medications Acetaminophen (Tylenol 325mg Tab) 650 mg PO Q6 PRN PRN Reason: Headache Last Admin: 07/16/18 00:08 Dose: 650 mg Albuterol/Ipratropium (Duoneb 3 Mg/0.5 Mg (3 Ml) Ud) 3 ml INH RQ6 [facility] Last Admin: 07/17/18 07:31 Dose: 3 ml Amlodipine Besylate (Norvasc) 5 mg PO DAILY [facility] Last Admin: 07/17/18 09:50 Dose: 5 mg Aspirin (Aspirin Chewable) 81 mg PO DAILY [facility] Last Admin: 07/17/18 09:51 Dose: 81 mg Dextrose (Dextrose 50% Inj) 0 ml IV STAT PRN; Protocol PRN Reason: Hypoglycemia Protocol Dextrose (Glutose 15) 0 gm PO ONCE PRN; Protocol PRN Reason: Hypoglycemia Protocol Enoxaparin Sodium (Lovenox) 60 mg SC DAILY [facility] Last Admin: 07/17/18 09:51 Dose: 60 mg Glucagon (Glucagen Diagnostic Kit) 1 mg IM STAT PRN; Protocol PRN Reason: Hypoglycemia Protocol Hydrochlorothiazide (Hydrodiuril) 25 mg PO DAILY [facility] Last Admin: 07/17/18 09:51 Dose: 25 mg Azithromycin 500 mg/ Sodium (Chloride) 250 mls @ 250 mls/hr IVPB Q24H [facility]; Protocol Last Admin: 07/16/18 17:37 Dose: 250 mls/hr Dextrose (Dextrose 5% In Water 1000 Ml) 1,000 mls @ 0 mls/hr IV .Q0M PRN; P rotocol PRN Reason: Hypoglycemia Protocol Insulin Aspart (Novolog) 0 unit SC ACHS [facility]; Protocol Last Admin: 07/17/18 12:55 Dose: 4 unit Losartan Potassium (Cozaar) 100 mg PO DAILY [facility] Last Admin: 07/17/18 09:50 Dose: 100 mg Meclizine HCl (Antivert) 25 mg PO Q6 PRN PRN Reason: vertigo Memantine (Namenda) 5 mg PO DAILY [facility] Last Admin: 07/17/18 09:51 Dose: Not Given Methylprednisolone (Solu-Medrol) 40 mg IV Q8 [facility] Last Admin: 07/17/18 13:00 Dose: 40 mg Pantoprazole Sodium (Protonix Ec Tab) 40 mg PO DAILY [facility] Last Admin: 07/17/18 09:50 Dose: 40 mg Promethazine HCl/Codeine (Phenergan/Codeine Oral Syrup) 5 ml PO Q4H PRN PRN Reason: Cough and congestion Last Admin: 07/17/18 09:50 Dose: 5 ml Tiotropium [place] (Spiriva) 18 mcg INH RQ24 [facility] Last Admin: 07/17/18 07:32 Dose: Not Given Zolpidem Tartrate (Ambien) 5 mg PO HS [facility] Last Admin: 07/16/18 21:15 Dose: 5 mg - Labs Labs: 07/17/18 07:22 07/17/18 07:22
--- NOTE | 2018-07-17 14:44 | RAD ---
Date of service: 07/17/2018 PROCEDURE: CHEST RADIOGRAPH, 1 VIEW HISTORY: resp. infection COMPARISON: 07/11/2018. FINDINGS: LUNGS: The lungs are hyperinflated and there is peribronchial thickening with chronic changes in both lungs. No focal consolidation. PLEURA: No pneumothorax or pleural effusion. CARDIOVASCULAR: The heart is normal in size. Atherosclerotic aortic arch calcifications are present. OSSEOUS STRUCTURES: Within normal limits for the patient's age. VISUALIZED UPPER ABDOMEN: Normal. OTHER FINDINGS: None. IMPRESSION: No active pulmonary disease. COPD.
[2018-07-17 17:45] LABS: ABG ALLEN TEST YES; ARTERIAL BLOOD GAS HCO3 40.7 mmol/L (21-28); ARTERIAL BLOOD GAS HEMOGLOBIN 13.7 g/dL (11.7-17.4); ARTERIAL BLOOD GAS PCO2 59 mm/Hg (35-45); ARTERIAL BLOOD GAS PH 7.51 (7.35-7.45); ARTERIAL BLOOD GAS PO2 76 mm/Hg (80-100); ARTERIAL BLOOD GAS TCO2 48.9 mmol/L (22-28)
[2018-07-17] MEDS ORDERED: Tetanus/Diphtheria Toxoids 0.5 ml Syringe IM ONE (18:00)
[2018-07-17] MEDS: Azithromycin 500 MG in Sodium Chloride 0.9% 250 ML IVPB SCH ×2 (18:05→18:08)
--- NOTE | 2018-07-17 20:22 | CP.PCM.PN ---
Subjective - Date & Time of Evaluation Date of Evaluation: 07/17/18 Time of Evaluation: 20:22 - Subjective Subjective: CHIEF COMPLAINTS TODAY : VSS afebrile On BiPAP machine FEELS BETTER LESS COUGH HEENT : N. Resp : No hemoptysis +VE DRY COUGH Cardio : No anginal CP, PND, orthopnea, palpitation GI : No abd.pain, n/v ,diarrhea or GI bleeding . 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 Musculoskel : No joint swelling , Derm : No rash Psych : Normal affect. Ext : No swelling ,calf pain PE. Pt. is alert awake in no distress. V.S As noted in the chart Head ,ear nose,throat and eyes : Normal. Neck : Supple with normal carotids. Lungs: Clear air entry. Bilateral expiratory wheeze Heart : S1 & S2 normal with S4. No murmur. Abd : Soft non tender with normal bowel sounds. Neuro : Moves all ext. with no localized deficit. Ext : No edema with intact pulses.Non tender calves Derm : No rashes or decubitus ulcer. LABS/RADIOLOGY: REVIEWED (PERTUSSIS IGG, IGA +VE AB Mycoplasma IgM negative Legionella urinary antigen negative. ESR 21 Objective - Vital Signs/Intake and Output Vital Signs (last 24 hours): Temp Pulse Resp BP Pulse Ox 98.0 F 96 H 20 158/60 H 95 07/17/18 15:08 07/17/18 15:08 07/17/18 15:08 07/17/18 15:08 07/17/18 14:57 - Medications Medications: Current Medications Acetaminophen (Tylenol 325mg Tab) 650 mg PO Q6 PRN PRN Reason: Headache Last Admin: 07/16/18 00:08 Dose: 650 mg Albuterol/Ipratropium (Duoneb 3 Mg/0.5 Mg (3 Ml) Ud) 3 ml INH RQ6 [facility] Last Admin: 07/17/18 14:15 Dose: 3 ml Amlodipine Besylate (Norvasc) 5 mg PO DAILY [facility] Last Admin: 07/17/18 09:50 Dose: 5 mg Aspirin (Aspirin Chewable) 81 mg PO DAILY [facility] Last Admin: 07/17/18 09:51 Dose: 81 mg Dextrose (Dextrose 50% Inj) 0 ml IV STAT PRN; Protocol PRN Reason: Hypoglycemia Protocol Dextrose (Glutose 15) 0 gm PO ONCE PRN; Protocol PRN Reason: Hypoglycemia Protocol Glucagon (Glucagen Diagnostic Kit) 1 mg IM STAT PRN; Protocol PRN Reason: Hypoglycemia Protocol Hydrochlorothiazide (Hydrodiuril) 25 mg PO DAILY [facility] Last Admin: 07/17/18 09:51 Dose: 25 mg Dextrose (Dextrose 5% In Water 1000 Ml) 1,000 mls @ 0 mls/hr IV .Q0M PRN; Protocol PRN Reason: Hypoglycemia Protocol Insulin Aspart (Novolog) 0 unit SC ACHS [facility]; Protocol Last Admin: 07/17/18 18:09 Dose: Not Given Losartan Potassium (Cozaar) 100 mg PO DAILY [facility] Last Admin: 07/17/18 09:50 Dose: 100 mg Meclizine HCl (Antivert) 25 mg PO Q6 PRN PRN Reason: vertigo Memantine (Namenda) 5 mg PO DAILY [facility] Last Admin: 07/17/18 09:51 Dose: Not Given Methylprednisolone (Solu-Medrol) 40 mg IV Q8 [facility] Last Admin: 07/17/18 13:00 Dose: 40 mg Pantoprazole Sodium (Protonix Ec Tab) 40 mg PO DAILY [facility] Last Admin: 07/17/18 09:50 Dose: 40 mg Promethazine HCl/Codeine (Phenergan/Codeine Oral Syrup) 5 ml PO Q4H PRN PRN Reason: Cough and congestion Last Admin: 07/17/18 09:50 Dose: 5 ml Tiotropium [place] (Spiriva) 18 mcg INH RQ24 [facility] Last Admin: 07/17/18 07:32 Dose: Not Given Zolpidem Tartrate (Ambien) 5 mg PO HS [facility] Last Admin: 07/16/18 21:15 Dose: 5 mg - Labs Labs: 07/17/18 07:22 07/17/18 07:22 Assessment and Plan (1) Respiratory insufficiency Assessment & Plan: PT PRESENTLY ON BIPAP. IS COMFORTABLEAND FEELING BETTER ON IV STEROIDS PER PULMONARY.07/12/18 CONTINUE IV AZITHROMAX 500MG IVPB Q 24HRLY.07/12/18. X 5DAYS MORE PERTUSSIS SEROLOGY+VE IGG /IGA -SUGGESTIVE OF RECENT INFECTION. WILL GIVE dTap IM TODAY DISCUSSED WITH PHARMACY. continue pulmonary toilet. CLOSE CONTACTS-HOUSEHOLD TO TO GET ZITHROMX 500MG OD X5 DAYS DROPLET PRECAUTIONS. DISCUSSED WITH STAFF/ AND PULMONARY PULMONARY ARRANGING FOR TRILOGY VENTILATOR OPD. Status: Acute (2) COPD exacerbation Status: Acute (3) HTN (hypertension) Status: Acute
[2018-07-18] MEDS: Albuterol-Ipratrop 3 mg / 0.5 (3 ml) UD INH SCH ×4 (02:45→19:50)
[2018-07-18] MEDS: MethylPREDNISolone 40 mg Vial IV SCH ×3 (05:14→21:17)
[2018-07-18] MEDS: Tiotropium 18 mcg Cap For Inhalation INH SCH (08:00)
[2018-07-18] MEDS: (Novolog) Insulin Aspart, Recombinant 100 u/ml 10 ml vial SC SCH ×4 (08:23→21:15)
[2018-07-18 08:26] LABS: BASO % 0.3 % (0.0-2.0); HEMOGLOBIN 12.4 g/dL (11.0-16.0); LYMPH # 0.8 K/uL (1.0-4.3); LYMPH % 6.8 % (20.0-40.0); MEAN CELL VOLUME 91.2 fL (81.0-99.0); MEAN CORPUSCULAR HEMOGLOBIN 29.5 pg (27.0-31.0); MEAN CORPUSCULAR HGB CONC 32.4 g/dL (33.0-37.0); MEAN PLATELET VOLUME 10.1 fL (7.2-11.7); MONO # 0.5 K/uL (0.0-0.8); MONO % 4.6 % (0.0-10.0); NEUT # 10.1 K/uL (1.8-7.0); NEUT % 88.3 % (50.0-75.0); PLATELET COUNT 260 K/uL (130-400); RBC 4.19 Mil/uL (3.80-5.20); RED CELL DISTRIBUTION WIDTH 13.3 % (11.5-14.5); WHITE BLOOD COUNT 11.4 K/uL (4.8-10.8)
[2018-07-18 08:54] LABS: ALB/GLOB RATIO 1.2 (1.0-2.1); ALBUMIN 3.4 g/dL (3.5-5.0); ALT/SGPT 105 U/L (9-52); AST/SGOT 39 U/L (14-36); BLOOD UREA NITROGEN 29 mg/dL (7-17); CALCIUM 9.1 mg/dl (8.6-10.4); GFR NON-AFRICAN AMERICAN > 60
[2018-07-18 09:12] LABS: LYMPHOCYTE 5 % (20-40); MONOCYTE 2 % (0-10); NEUTROPHIL 93 % (50-75); TOTAL CELLS COUNTED 100
[2018-07-18 09:13] LABS: PLATELET ESTIMATE NORMAL (NORMAL)
[2018-07-18] MEDS: Pantoprazole 40 mg EC Tab PO SCH (10:33)
--- NOTE | 2018-07-18 13:25 | CP.PCM.PN ---
Subjective - Date & Time of Evaluation Date of Evaluation: 07/18/18 Time of Evaluation: 10:20 - Subjective Subjective: Patient seen and examined Patient is off BiPAP during daytime On isolation Clinically much better Afebrile Objective - Vital Signs/Intake and Output Vital Signs (last 24 hours): Temp Pulse Resp BP Pulse Ox 97.9 F 76 20 160/68 H 94 L 07/18/18 07:39 07/18/18 10:33 07/18/18 07:39 07/18/18 10:33 07/18/18 07:39 Intake and Output: 07/18/18 07/18/18 06:59 18:59 Intake Total 420 Balance 420 - Medications Medications: Current Medications Acetaminophen (Tylenol 325mg Tab) 650 mg PO Q6 PRN PRN Reason: Headache Last Admin: 07/16/18 00:08 Dose: 650 mg Albuterol/Ipratropium (Duoneb 3 Mg/0.5 Mg (3 Ml) Ud) 3 ml INH RQ6 [facility] Last Admin: 07/18/18 02:45 Dose: 3 ml Amlodipine Besylate (Norvasc) 5 mg PO DAILY [facility] Last Admin: 07/18/18 10:33 Dose: 5 mg Aspirin (Aspirin Chewable) 81 mg PO DAILY [facility] Last Admin: 07/18/18 10:33 Dose: 81 mg Dextrose (Dextrose 50% Inj) 0 ml IV STAT PRN; Protocol PRN Reason: Hypoglycemia Protocol Dextrose (Glutose 15) 0 gm PO ONCE PRN; Protocol PRN Reason: Hypoglycemia Protocol Glucagon (Glucagen Diagnostic Kit) 1 mg IM STAT PRN; Protocol PRN Reason: Hypoglycemia Protocol Hydrochlorothiazide (Hydrodiuril) 25 mg PO DAILY [facility] Last Admin: 07/18/18 10:33 Dose: 25 mg Dextrose (Dextrose 5% In Water 1000 Ml) 1,000 mls @ 0 mls/hr IV .Q0M PRN; Protocol PRN Reason: Hypoglycemia Protocol Insulin Aspart (Novolog) 0 unit SC ACHS [facility]; Protocol Last Admin: 07/18/18 12:36 Dose: 3 unit Losartan Potassium (Cozaar) 100 mg PO DAILY [facility] Last Admin: 07/18/18 10:33 Dose: 100 mg Meclizine HCl (Antivert) 25 mg PO Q6 PRN PRN Reason: vertigo Memantine (Namenda) 5 mg PO DAILY [facility] Last Admin: 07/18/18 10:39 Dose: Not Given Methylprednisolone (Solu-Medrol) 40 mg IV Q8 [facility] Last Admin: 07/18/18 05:14 Dose: 40 mg Pantoprazole Sodium (Protonix Ec Tab) 40 mg PO DAILY [facility] Last Admin: 07/18/18 10:33 Dose: 40 mg Promethazine HCl/Codeine (Phenergan/Codeine Oral Syrup) 5 ml PO Q4H PRN PRN Reason: Cough and congestion Last Admin: 07/17/18 22:02 Dose: 5 ml Tiotropium [place] (Spiriva) 18 mcg INH RQ24 [facility] Last Admin: 07/17/18 07:32 Dose: Not Given Zolpidem Tartrate (Ambien) 5 mg PO HS [facility] Last Admin: 07/17/18 21:56 Dose: 5 mg - Labs Labs: 07/18/18 08:17 07/18/18 08:17 - Head Exam Head Exam: ATRAUMATIC, NORMOCEPHALIC - ENT Exam ENT Exam: Mucous Membranes Moist - Neck Exam Neck Exam: Normal Inspection - Respiratory Exam Respiratory Exam: Decreased Breath Sounds - Cardiovascular Exam Cardiovascular Exam: REGULAR RHYTHM - GI/Abdominal Exam GI & Abdominal Exam: Soft Assessment and Plan (1) COPD exacerbation Assessment & Plan: switch to p.o. prednisone Continue nebulizer treatment Trilogy ABG room air Status: Acute (2) Respiratory insufficiency Status: Acute
--- NOTE | 2018-07-18 14:00 | CP.PCM.PN ---
Subjective - Date & Time of Evaluation Date of Evaluation: 07/18/18 Time of Evaluation: 13:58 - Subjective Subjective: CHIEF COMPLAINTS TODAY : patient is off BiPAP machine during the morning hours. Patient is positive for pertussis, whooping cough, on isolation HEENT : N. Resp : No hemoptysis Cardio : No anginal CP, PND, orthopnea, palpitation GI : No abd.pain, n/v ,diarrhea or GI bleeding . 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 Musculoskel : No joint swelling , Derm : No rash Psych : Normal affect. Ext : No swelling ,calf pain PE. Pt. is alert awake in no distress. V.S As noted in the chart Head ,ear nose,throat and eyes : Normal. Neck : Supple with normal carotids. Lungs: Clear air entry. Bilateral inspiratory and expiratory wheeze Heart : S1 & S2 normal with S4. No murmur. Abd : Soft non tender with normal bowel sounds. Neuro : Moves all ext. with no localized deficit. Ext : No edema with intact pulses.Non tender calves Derm : No rashes or decubitus ulcer. LABS/RADIOLOGY: ASSESSMENT/PLAN : continue nebulizer by mouth steroids antibiotics and pertussis tetanus vaccination. Objective - Vital Signs/Intake and Output Vital Signs (last 24 hours): Temp Pulse Resp BP Pulse Ox 97.9 F 76 20 160/68 H 94 L 07/18/18 07:39 07/18/18 10:33 07/18/18 07:39 07/18/18 10:33 07/18/18 07:39 Intake and Output: 07/18/18 07/18/18 11:59 23:59 Intake Total 420 Balance 420 - Medications Medications: Current Medications Acetaminophen (Tylenol 325mg Tab) 650 mg PO Q6 PRN PRN Reason: Headache Last Admin: 07/16/18 00:08 Dose: 650 mg Albuterol/Ipratropium (Duoneb 3 Mg/0.5 Mg (3 Ml) Ud) 3 ml INH RQ6 [facility] Last Admin: 07/18/18 02:45 Dose: 3 ml Amlodipine Besylate (Norvasc) 5 mg PO DAILY [facility] Last Admin: 07/18/18 10:33 Dose: 5 mg Aspirin (Aspirin Chewable) 81 mg PO DAILY [facility] Last Admin: 07/18/18 10:33 Dose: 81 mg Dextrose (Dextrose 50% Inj) 0 ml IV STAT PRN; Protocol PRN Reason: Hypoglycemia Protocol Dextrose (Glutose 15) 0 gm PO ONCE PRN; Protocol PRN Reason: Hypoglycemia Protocol Glucagon (Glucagen Diagnostic Kit) 1 mg IM STAT PRN; Protocol PRN Reason: Hypoglycemia Protocol Hydrochlorothiazide (Hydrodiuril) 25 mg PO DAILY [facility] Last Admin: 07/18/18 10:33 Dose: 25 mg Dextrose (Dextrose 5% In Water 1000 Ml) 1,000 mls @ 0 mls/hr IV .Q0M PRN; Protocol PRN Reason: Hypoglycemia Protocol Insulin Aspart (Novolog) 0 unit SC ACHS [facility]; Protocol Last Admin: 07/18/18 12:36 Dose: 3 unit Losartan Potassium (Cozaar) 100 mg PO DAILY [facility] Last Admin: 07/18/18 10:33 Dose: 100 mg Meclizine HCl (Antivert) 25 mg PO Q6 PRN PRN Reason: vertigo Memantine (Namenda) 5 mg PO DAILY [facility] Last Admin: 07/18/18 10:39 Dose: Not Given Methylprednisolone (Solu-Medrol) 40 mg IV Q8 [facility] Last Admin: 07/18/18 05:14 Dose: 40 mg Pantoprazole Sodium (Protonix Ec Tab) 40 mg PO DAILY [facility] Last Admin: 07/18/18 10:33 Dose: 40 mg Promethazine HCl/Codeine (Phenergan/Codeine Oral Syrup) 5 ml PO Q4H PRN PRN Reason: Cough and congestion Last Admin: 07/17/18 22:02 Dose: 5 ml Tiotropium [place] (Spiriva) 18 mcg INH RQ24 [facility] Last Admin: 07/17/18 07:32 Dose: Not Given Zolpidem Tartrate (Ambien) 5 mg PO HS [facility] Last Admin: 07/17/18 21:56 Dose: 5 mg - Labs Labs: 07/18/18 08:17 07/18/18 08:17
[2018-07-18] MEDS: Promethazine/Cod 6.25mg-10mg/5ml Syr UD PO PRN (21:17)
[2018-07-19] MEDS: Albuterol-Ipratrop 3 mg / 0.5 (3 ml) UD INH SCH ×4 (03:06→20:32)
[2018-07-19] MEDS: MethylPREDNISolone 40 mg Vial IV SCH ×3 (05:31→22:06)
[2018-07-19] MEDS: Tiotropium 18 mcg Cap For Inhalation INH SCH (08:22)
[2018-07-19] MEDS: (Novolog) Insulin Aspart, Recombinant 100 u/ml 10 ml vial SC SCH ×4 (09:04→21:33)
[2018-07-19] MEDS: Pantoprazole 40 mg EC Tab PO SCH (11:46)
--- NOTE | 2018-07-19 12:17 | CP.PCM.PN ---
Subjective - Date & Time of Evaluation Date of Evaluation: 07/19/18 Time of Evaluation: 12:17 - Subjective Subjective: CHIEF COMPLAINTS TODAY : VSS afebrile ON BIPAP AT NIGHT STILL COUGHING NON PRODUCTIVE DENIES SOB HEENT : N. Resp : No hemoptysis +VE DRY COUGH Cardio : No anginal CP, PND, orthopnea, palpitation GI : No abd.pain, n/v ,diarrhea or GI bleeding . 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 Musculoskel : No joint swelling , Derm : No rash Psych : Normal affect. Ext : No swelling ,calf pain PE. Pt. is alert awake in no distress. V.S As noted in the chart Head ,ear nose,throat and eyes : Normal. Neck : Supple with normal carotids. Lungs:LESS BILATERAL EXPIRATORY WHEEZE. Heart : S1 & S2 normal with S4. No murmur. Abd : Soft non tender with normal bowel sounds. Neuro : Moves all ext. with no localized deficit. Ext : No edema with intact pulses.Non tender calves Derm : No rashes or decubitus ulcer. LABS/RADIOLOGY: REVIEWED (PERTUSSIS IGG, IGA +VE AB Mycoplasma IgM negative Legionella urinary antigen negative. ESR 21 Objective - Vital Signs/Intake and Output Vital Signs (last 24 hours): Temp Pulse Resp BP Pulse Ox 98.7 F 68 24 116/81 100 07/19/18 07:00 07/19/18 07:00 07/19/18 07:00 07/19/18 07:00 07/19/18 07:00 - Medications Medications: Current Medications Acetaminophen (Tylenol 325mg Tab) 650 mg PO Q6 PRN PRN Reason: Headache Last Admin: 07/16/18 00:08 Dose: 650 mg Albuterol/Ipratropium (Duoneb 3 Mg/0.5 Mg (3 Ml) Ud) 3 ml INH RQ6 [facility] Last Admin: 07/19/18 08:22 Dose: 3 ml Amlodipine Besylate (Norvasc) 5 mg PO DAILY [facility] Last Admin: 07/19/18 11:46 Dose: 5 mg Aspirin (Aspirin Chewable) 81 mg PO DAILY [facility] Last Admin: 07/19/18 11:46 Dose: 81 mg Dextrose (Dextrose 50% Inj) 0 ml IV STAT PRN; Protocol PRN Reason: Hypoglycemia Protocol Dextrose (Glutose 15) 0 gm PO ONCE PRN; Protocol PRN Reason: Hypoglycemia Protocol Glucagon (Glucagen Diagnostic Kit) 1 mg IM STAT PRN; Protocol PRN Reason: Hypoglycemia Protocol Hydrochlorothiazide (Hydrodiuril) 25 mg PO DAILY [facility] Last Admin: 07/19/18 11:46 Dose: 25 mg Dextrose (Dextrose 5% In Water 1000 Ml) 1,000 mls @ 0 mls/hr IV .Q0M PRN; Protocol PRN Reason: Hypoglycemia Protocol Insulin Aspart (Novolog) 0 unit SC ACHS [facility]; Protocol Last Admin: 07/19/18 11:46 Dose: 3 unit Losartan Potassium (Cozaar) 100 mg PO DAILY [facility] Last Admin: 07/19/18 11:46 Dose: 100 mg Meclizine HCl (Antivert) 25 mg PO Q6 PRN PRN Reason: vertigo Memantine (Namenda) 5 mg PO DAILY [facility] Last Admin: 07/19/18 11:47 Dose: Not Given Methylprednisolone (Solu-Medrol) 40 mg IV Q8 [facility] Last Admin: 07/19/18 05:31 Dose: 40 mg Pantoprazole Sodium (Protonix Ec Tab) 40 mg PO DAILY [facility] Last Admin: 07/19/18 11:46 Dose: 40 mg Promethazine HCl/Codeine (Phenergan/Codeine Oral Syrup) 5 ml PO Q4H PRN PRN Reason: Cough and congestion Last Admin: 07/18/18 21:17 Dose: 5 ml Tiotropium [place] (Spiriva) 18 mcg INH RQ24 [facility] Last Admin: 07/19/18 08:22 Dose: Not Given Zolpidem Tartrate (Ambien) 5 mg PO HS [facility] Last Admin: 07/18/18 21:17 Dose: 5 mg - Labs Labs: 07/18/18 08:17 07/18/18 08:17 Assessment and Plan (1) Pertussis Assessment & Plan: PT ON ZITHROMAX. RECEIVED dTaP VACCINE o.5ML IM . FAMILY MEMMBER S CLOSE HOUSEHOLD TO GET ZITHROMAX 500MG PO X OD X 5DAYS PROPHYLAXIS. CASE DISCUSSED WITH PMD. Status: Acute (2) Respiratory insufficiency Status: Acute (3) COPD exacerbation Status: Acute (4) HTN (hypertension) Status: Acute
--- NOTE | 2018-07-19 14:33 | CP.PCM.PN ---
Subjective - Date & Time of Evaluation Date of Evaluation: 07/19/18 Time of Evaluation: 12:20 - Subjective Subjective: Patient seen and examined Sitting comfortably in no distress Patient is off BiPAP during daytime Afebrile Objective - Vital Signs/Intake and Output Vital Signs (last 24 hours): Temp Pulse Resp BP Pulse Ox 98.7 F 68 24 116/81 100 07/19/18 07:00 07/19/18 13:36 07/19/18 07:00 07/19/18 07:00 07/19/18 07:00 - Medications Medications: Current Medications Acetaminophen (Tylenol 325mg Tab) 650 mg PO Q6 PRN PRN Reason: Headache Last Admin: 07/16/18 00:08 Dose: 650 mg Albuterol/Ipratropium (Duoneb 3 Mg/0.5 Mg (3 Ml) Ud) 3 ml INH RQ6 [facility] Last Admin: 07/19/18 08:22 Dose: 3 ml Amlodipine Besylate (Norvasc) 5 mg PO DAILY [facility] Last Admin: 07/19/18 11:46 Dose: 5 mg Aspirin (Aspirin Chewable) 81 mg PO DAILY [facility] Last Admin: 07/19/18 11:46 Dose: 81 mg Dextrose (Dextrose 50% Inj) 0 ml IV STAT PRN; Protocol PRN Reason: Hypoglycemia Protocol Dextrose (Glutose 15) 0 gm PO ONCE PRN; Protocol PRN Reason: Hypoglycemia Protocol Glucagon (Glucagen Diagnostic Kit) 1 mg IM STAT PRN; Protocol PRN Reason: Hypoglycemia Protocol Hydrochlorothiazide (Hydrodiuril) 25 mg PO DAILY [facility] Last Admin: 07/19/18 11:46 Dose: 25 mg Dextrose (Dextrose 5% In Water 1000 Ml) 1,000 mls @ 0 mls/hr IV .Q0M PRN; P rotocol PRN Reason: Hypoglycemia Protocol Insulin Aspart (Novolog) 0 unit SC ACHS [facility]; Protocol Last Admin: 07/19/18 11:46 Dose: 3 unit Losartan Potassium (Cozaar) 100 mg PO DAILY [facility] Last Admin: 07/19/18 11:46 Dose: 100 mg Meclizine HCl (Antivert) 25 mg PO Q6 PRN PRN Reason: vertigo Memantine (Namenda) 5 mg PO DAILY [facility] Last Admin: 07/19/18 11:47 Dose: Not Given Methylprednisolone (Solu-Medrol) 40 mg IV Q8 [facility] Last Admin: 07/19/18 13:49 Dose: 40 mg Pantoprazole Sodium (Protonix Ec Tab) 40 mg PO DAILY [facility] Last Admin: 07/19/18 11:46 Dose: 40 mg Promethazine HCl/Codeine (Phenergan/Codeine Oral Syrup) 5 ml PO Q4H PRN PRN Reason: Cough and congestion Last Admin: 07/18/18 21:17 Dose: 5 ml Tiotropium [place] (Spiriva) 18 mcg INH RQ24 [facility] Last Admin: 07/19/18 08:22 Dose: Not Given Zolpidem Tartrate (Ambien) 5 mg PO HS [facility] Last Admin: 07/18/18 21:17 Dose: 5 mg - Labs Labs: 07/18/18 08:17 07/18/18 08:17 - Head Exam Head Exam: ATRAUMATIC, NORMOCEPHALIC - ENT Exam ENT Exam: Mucous Membranes Moist - Neck Exam Neck Exam: Normal Inspection - Respiratory Exam Respiratory Exam: Decreased Breath Sounds - Cardiovascular Exam Cardiovascular Exam: REGULAR RHYTHM - GI/Abdominal Exam GI & Abdominal Exam: Soft, Normal Bowel Sounds Assessment and Plan (1) COPD exacerbation Assessment & Plan: Taper steroids Nebulizer treatment BiPAP at night Continue antibiotics Status: Acute (2) Respiratory insufficiency Status: Acute
--- NOTE | 2018-07-19 14:40 | CP.PCM.PN ---
Subjective - Date & Time of Evaluation Date of Evaluation: 07/19/18 Time of Evaluation: 14:40 - Subjective Subjective: CHIEF COMPLAINTS TODAY : patient is off BiPAP machine during the morning hours. Patient is positive for pertussis, whooping cough, on isolation HEENT : N. Resp : No hemoptysis Cardio : No anginal CP, PND, orthopnea, palpitation GI : No abd.pain, n/v ,diarrhea or GI bleeding . 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 Musculoskel : No joint swelling , Derm : No rash Psych : Normal affect. Ext : No swelling ,calf pain PE. Pt. is alert awake in no distress. V.S As noted in the chart Head ,ear nose,throat and eyes : Normal. Neck : Supple with normal carotids. Lungs: Clear air entry. Bilateral inspiratory and expiratory wheeze Heart : S1 & S2 normal with S4. No murmur. Abd : Soft non tender with normal bowel sounds. Neuro : Moves all ext. with no localized deficit. Ext : No edema with intact pulses.Non tender calves Derm : No rashes or decubitus ulcer. LABS/RADIOLOGY: ASSESSMENT/PLAN : continue nebulizer by mouth steroids antibiotics and pertussis tetanus vaccination. Objective - Vital Signs/Intake and Output Vital Signs (last 24 hours): Temp Pulse Resp BP Pulse Ox 98.7 F 68 24 116/81 100 07/19/18 07:00 07/19/18 13:36 07/19/18 07:00 07/19/18 07:00 07/19/18 07:00 - Medications Medications: Current Medications Acetaminophen (Tylenol 325mg Tab) 650 mg PO Q6 PRN PRN Reason: Headache Last Admin: 07/16/18 00:08 Dose: 650 mg Albuterol/Ipratropium (Duoneb 3 Mg/0.5 Mg (3 Ml) Ud) 3 ml INH RQ6 [facility] Last Admin: 07/19/18 08:22 Dose: 3 ml Amlodipine Besylate (Norvasc) 5 mg PO DAILY [facility] Last Admin: 07/19/18 11:46 Dose: 5 mg Aspirin (Aspirin Chewable) 81 mg PO DAILY [facility] Last Admin: 07/19/18 11:46 Dose: 81 mg Dextrose (Dextrose 50% Inj) 0 ml IV STAT PRN; Protocol PRN Reason: Hypoglycemia Protocol Dextrose (Glutose 15) 0 gm PO ONCE PRN; Protocol PRN Reason: Hypoglycemia Protocol Glucagon (Glucagen Diagnostic Kit) 1 mg IM STAT PRN; Protocol PRN Reason: Hypoglycemia Protocol Hydrochlorothiazide (Hydrodiuril) 25 mg PO DAILY [facility] Last Admin: 07/19/18 11:46 Dose: 25 mg Dextrose (Dextrose 5% In Water 1000 Ml) 1,000 mls @ 0 mls/hr IV .Q0M PRN; Protocol PRN Reason: Hypoglycemia Protocol Insulin Aspart (Novolog) 0 unit SC ACHS [facility]; Protocol Last Admin: 07/19/18 11:46 Dose: 3 unit Losartan Potassium (Cozaar) 100 mg PO DAILY [facility] Last Admin: 07/19/18 11:46 Dose: 100 mg Meclizine HCl (Antivert) 25 mg PO Q6 PRN PRN Reason: vertigo Memantine (Namenda) 5 mg PO DAILY [facility] Last Admin: 07/19/18 11:47 Dose: Not Given Methylprednisolone (Solu-Medrol) 40 mg IV Q8 [facility] Last Admin: 07/19/18 13:49 Dose: 40 mg Pantoprazole Sodium (Protonix Ec Tab) 40 mg PO DAILY [facility] Last Admin: 07/19/18 11:46 Dose: 40 mg Promethazine HCl/Codeine (Phenergan/Codeine Oral Syrup) 5 ml PO Q4H PRN PRN Reason: Cough and congestion Last Admin: 07/18/18 21:17 Dose: 5 ml Tiotropium [place] (Spiriva) 18 mcg INH RQ24 [facility] Last Admin: 07/19/18 08:22 Dose: Not Given Zolpidem Tartrate (Ambien) 5 mg PO HS [facility] Last Admin: 07/18/18 21:17 Dose: 5 mg - Labs Labs: 07/18/18 08:17 07/18/18 08:17
[2018-07-19] MEDS: Promethazine/Cod 6.25mg-10mg/5ml Syr UD PO PRN (23:20)
[2018-07-20] MEDS: Albuterol-Ipratrop 3 mg / 0.5 (3 ml) UD INH SCH ×4 (01:38→20:05)
[2018-07-20] MEDS: MethylPREDNISolone 40 mg Vial IV SCH ×3 (06:20→22:19)
[2018-07-20] MEDS: Tiotropium 18 mcg Cap For Inhalation INH SCH (07:30)
[2018-07-20 08:02] LABS: ALB/GLOB RATIO 1.1 (1.0-2.1); ALBUMIN 3.2 g/dL (3.5-5.0); ALT/SGPT 71 U/L (9-52); AST/SGOT 30 U/L (14-36); BLOOD UREA NITROGEN 32 mg/dL (7-17); CALCIUM 9.1 mg/dl (8.6-10.4); GFR NON-AFRICAN AMERICAN > 60
[2018-07-20] MEDS: (Novolog) Insulin Aspart, Recombinant 100 u/ml 10 ml vial SC SCH ×3 (10:27→18:34)
[2018-07-20] MEDS: Pantoprazole 40 mg EC Tab PO SCH (10:27)
[2018-07-20] MEDS: Promethazine/Cod 6.25mg-10mg/5ml Syr UD PO PRN ×2 (10:33→23:57)
--- NOTE | 2018-07-20 15:37 | CP.PCM.PN ---
Subjective - Date & Time of Evaluation Date of Evaluation: 07/20/18 Time of Evaluation: 15:32 - Subjective Subjective: Pulmonary, Covering Dr Arboleda The patient was Seen/interviewed and examined by me at the bedside, Medical records reviewed and Management issues were discussed and formulated with the house staff. Events reviewed 72-year-old Former Smoker female with PMHx of COPD/ Emphysema/Asthma, HTN, Cardia Arrhythmia, Gastritis, Gastrointestinal Ulcer, Back Problems and Osteoporosis Who presented to emergency room on 07/09 complaining cough worsening shortness of breath, wheezing, productive cough for the past few days not responding to bronchodilators. - Past Social History: Former Smoker Patient Admitted for COPD exacerbation, started on IV steroids and nebulizer treatment Then Azithromycin and Antitussive were Added Has been on/off BIPAP Felling better today Patient comfortable, Sitting in chair NAD Afebrile, NSR on the monitor Adequate saturation 95-98% on RA Nocturnal BIPAP Less Dyspnea, + cough with occasional yellow sputum Denies fever chills, denies chest pain Most recent ABG 7.51/59/76/40/97% , consistent with metabolic acidosis, Patient has baseline chronic respiratory acidosis with acute hypercapnia on admission Objective - Vital Signs/Intake and Output Vital Signs (last 24 hours): Temp Pulse Resp BP Pulse Ox 97.6 F 63 20 148/71 99 07/20/18 08:12 07/20/18 08:25 07/19/18 23:40 07/20/18 08:12 07/20/18 08:12 - Medications Medications: Current Medications Acetaminophen (Tylenol 325mg Tab) 650 mg PO Q6 PRN PRN Reason: Headache Last Admin: 07/16/18 00:08 Dose: 650 mg Albuterol/Ipratropium (Duoneb 3 Mg/0.5 Mg (3 Ml) Ud) 3 ml INH RQ6 [facility] Last Admin: 07/20/18 13:45 Dose: 3 ml Amlodipine Besylate (Norvasc) 5 mg PO DAILY [facility] Last Admin: 07/20/18 10:27 Dose: 5 mg Aspirin (Aspirin Chewable) 81 mg PO DAILY [facility] Last Admin: 07/20/18 10:27 Dose: 81 mg Dextrose (Dextrose 50% Inj) 0 ml IV STAT PRN; Protocol PRN Reason: Hypoglycemia Protocol Dextrose (Glutose 15) 0 gm PO ONCE PRN; Protocol PRN Reason: Hypoglycemia Protocol Glucagon (Glucagen Diagnostic Kit) 1 mg IM STAT PRN; Protocol PRN Reason: Hypoglycemia Protocol Hydrochlorothiazide (Hydrodiuril) 25 mg PO DAILY [facility] Last Admin: 07/20/18 10:27 Dose: 25 mg Insulin Aspart (Novolog) 0 unit SC ACHS [facility]; Protocol Last Admin: 07/20/18 13:40 Dose: 2 unit Losartan Potassium (Cozaar) 100 mg PO DAILY [facility] Last Admin: 07/20/18 10:27 Dose: 100 mg Meclizine HCl (Antivert) 25 mg PO Q6 PRN PRN Reason: vertigo Memantine (Namenda) 5 mg PO DAILY [facility] Last Admin: 07/20/18 10:28 Dose: Not Given Methylprednisolone (Solu-Medrol) 40 mg IV Q8 [facility] Last Admin: 07/20/18 13:39 Dose: 40 mg Pantoprazole Sodium (Protonix Ec Tab) 40 mg PO DAILY [facility] Last Admin: 07/20/18 10:27 Dose: 40 mg Promethazine HCl/Codeine (Phenergan/Codeine Oral Syrup) 5 ml PO Q4H PRN PRN Reason: Cough and congestion Last Admin: 07/20/18 10:33 Dose: 5 ml Tiotropium [place] (Spiriva) 18 mcg INH RQ24 [facility] Last Admin: 07/20/18 07:30 Dose: Not Given Zolpidem Tartrate (Ambien) 5 mg PO HS [facility] Last Admin: 07/19/18 22:06 Dose: 5 mg - Labs Labs: 07/18/18 08:17 07/20/18 07:24 - Constitutional Appears: Well, No Acute Distress - Head Exam Head Exam: ATRAUMATIC, NORMAL INSPECTION, NORMOCEPHALIC - Eye Exam Eye Exam: Conjunctival injection, EOMI Pupil Exam: NORMAL ACCOMODATION, PERRL - Neck Exam Neck Exam: Full ROM, Normal Inspection. absent: Lymphadenopathy, Meningismus - Respiratory Exam Respiratory Exam: Decreased Breath Sounds, Prolonged Expiratory Phase, Rhonchi, Wheezes. absent: Chest Wall Tenderness, Clear to Ausculation Bilateral - Cardiovascular Exam Cardiovascular Exam: REGULAR RHYTHM, RRR, +S1, +S2. absent: Bradycardia, Tachycardia, Clicks, JVD - GI/Abdominal Exam GI & Abdominal Exam: Distended, Soft, Normal Bowel Sounds. absent: Firm, Guarding, Rigid, Tenderness - Back Exam Back Exam: absent: CVA tenderness (L), CVA tenderness (R) - Neurological Exam Neurological Exam: Alert, Awake, Oriented x3. absent: Motor Sensory Deficit Assessment and Plan (1) COPD exacerbation Assessment & Plan: Continue Spiriva INH RQ24 Continue Albuterol/Ipratropium (Duoneb) INH RQ6 Wean off BiPAP Use supplemental O2 with caution given CO2 retention Continue IV steroids and start tapering in AM if continue improving Azithromycin x 5 days Antitussive Repeat CXR on Saturday PFT's when patient is more stable on an outpatient basis. Status: Acute (2) Acute respiratory distress Status: Acute (3) Chronic respiratory acidosis Status: Acute (4) Pneumonia Status: Acute
--- NOTE | 2018-07-20 16:08 | CP.PCM.PN ---
Subjective - Date & Time of Evaluation Date of Evaluation: 07/20/18 Time of Evaluation: 16:07 - Subjective Subjective: Clinically patient is improving patient is off BiPAP. Will discuss with pulmonary and discharge the patient in a.m. for outpatient BiPAP. Objective - Vital Signs/Intake and Output Vital Signs (last 24 hours): Temp Pulse Resp BP Pulse Ox 97.6 F 63 20 148/71 99 07/20/18 08:12 07/20/18 08:25 07/19/18 23:40 07/20/18 08:12 07/20/18 08:12 - Medications Medications: Current Medications Acetaminophen (Tylenol 325mg Tab) 650 mg PO Q6 PRN PRN Reason: Headache Last Admin: 07/16/18 00:08 Dose: 650 mg Albuterol/Ipratropium (Duoneb 3 Mg/0.5 Mg (3 Ml) Ud) 3 ml INH RQ6 [facility] Last Admin: 07/20/18 13:45 Dose: 3 ml Amlodipine Besylate (Norvasc) 5 mg PO DAILY [facility] Last Admin: 07/20/18 10:27 Dose: 5 mg Aspirin (Aspirin Chewable) 81 mg PO DAILY [facility] Last Admin: 07/20/18 10:27 Dose: 81 mg Dextrose (Dextrose 50% Inj) 0 ml IV STAT PRN; Protocol PRN Reason: Hypoglycemia Protocol Dextrose (Glutose 15) 0 gm PO ONCE PRN; Protocol PRN Reason: Hypoglycemia Protocol Glucagon (Glucagen Diagnostic Kit) 1 mg IM STAT PRN; Protocol PRN Reason: Hypoglycemia Protocol Hydrochlorothiazide (Hydrodiuril) 25 mg PO DAILY [facility] Last Admin: 07/20/18 10:27 Dose: 25 mg Insulin Aspart (Novolog) 0 unit SC ACHS [facility]; Protocol Last Admin: 07/20/18 13:40 Dose: 2 unit Losartan Potassium (Cozaar) 100 mg PO DAILY [facility] Last Admin: 07/20/18 10:27 Dose: 100 mg Meclizine HCl (Antivert) 25 mg PO Q6 PRN PRN Reason: vertigo Memantine (Namenda) 5 mg PO DAILY [facility] Last Admin: 07/20/18 10:28 Dose: Not Given Methylprednisolone (Solu-Medrol) 40 mg IV Q8 [facility] Last Admin: 07/20/18 13:39 Dose: 40 mg Pantoprazole Sodium (Protonix Ec Tab) 40 mg PO DAILY [facility] Last Admin: 07/20/18 10:27 Dose: 40 mg Promethazine HCl/Codeine (Phenergan/Codeine Oral Syrup) 5 ml PO Q4H PRN PRN Reason: Cough and congestion Last Admin: 07/20/18 10:33 Dose: 5 ml Tiotropium [place] (Spiriva) 18 mcg INH RQ24 [facility] Last Admin: 07/20/18 07:30 Dose: Not Given Zolpidem Tartrate (Ambien) 5 mg PO HS [facility] Last Admin: 07/19/18 22:06 Dose: 5 mg - Labs Labs: 07/18/18 08:17 07/20/18 07:24
--- NOTE | 2018-07-20 23:38 | CP.PCM.PN ---
Subjective - Date & Time of Evaluation Date of Evaluation: 07/20/18 Time of Evaluation: 23:38 - Subjective Subjective: CHIEF COMPLAINTS TODAY : VSS afebrile ON BIPAP AT NIGHT NOSOB COUGH MUCH IMPROVED HEENT : N. Resp : No hemoptysis +VE DRY COUGH Cardio : No anginal CP, PND, orthopnea, palpitation GI : No abd.pain, n/v ,diarrhea or GI bleeding . VENTILATOR SPECIALIST : No headache, vertigo, focal deficit. Musculoskel : No joint swelling , Derm : No rash Psych : Normal affect. Ext : No swelling ,calf pain PE. Pt. is alert awake in no distress. V.S As noted in the chart Head ,ear nose,throat and eyes : Normal. Neck : Supple with normal carotids. Lungs:LESS BILATERAL EXP. WHEEZE Heart : S1 & S2 normal with S4. No murmur. Abd : Soft non tender with normal bowel sounds. Neuro : Moves all ext. with no localized deficit. Ext : No edema with intact pulses.Non tender calves Derm : No rashes or decubitus ulcer. LABS/RADIOLOGY: REVIEWED (PERTUSSIS IGG, IGA +VE AB Mycoplasma IgM negative Legionella urinary antigen negative. ESR 21 Objective - Vital Signs/Intake and Output Vital Signs (last 24 hours): Temp Pulse Resp BP Pulse Ox 97.9 F 92 H 20 143/65 95 07/20/18 16:20 07/20/18 22:36 07/20/18 16:20 07/20/18 16:20 07/20/18 16:20 Intake and Output: 07/20/18 07/21/18 18:59 06:59 Intake Total 500 400 Balance 500 400 - Medications Medications: Current Medications Acetaminophen (Tylenol 325mg Tab) 650 mg PO Q6 PRN PRN Reason: Headache Last Admin: 07/16/18 00:08 Dose: 650 mg Amlodipine Besylate (Norvasc) 5 mg PO DAILY [facility] Last Admin: 07/20/18 10:27 Dose: 5 mg Aspirin (Aspirin Chewable) 81 mg PO DAILY [facility] Last Admin: 07/20/18 10:27 Dose: 81 mg Dextrose (Dextrose 50% Inj) 0 ml IV STAT PRN; Protocol PRN Reason: Hypoglycemia Protocol Dextrose (Glutose 15) 0 gm PO ONCE PRN; Protocol PRN Reason: Hypoglycemia Protocol Glucagon (Glucagen Diagnostic Kit) 1 mg IM STAT PRN; Protocol PRN Reason: Hypoglycemia Protocol Hydrochlorothiazide (Hydrodiuril) [address] [facility] Last Admin: 07/20/18 10:27 Dose: 25 mg Insulin Aspart (Novolog) [address] [facility]; Protocol Last Admin: 07/20/18 18:34 Dose: 2 unit Losartan Potassium (Cozaar) [address] [facility] Last Admin: 07/20/18 10:27 Dose: 100 mg Meclizine HCl (Antivert) 25 mg PO Q6 PRN PRN Reason: vertigo Memantine (Namenda) [address] [facility] Last Admin: 07/20/18 10:28 Dose: Not Given Methylprednisolone (Solu-Medrol) [address] [facility] Last Admin: 07/20/18 22:19 Dose: 40 mg Pantoprazole Sodium (Protonix Ec Tab) [address] [facility] Last Admin: 07/20/18 10:27 Dose: 40 mg Promethazine HCl/Codeine (Phenergan/Codeine Oral Syrup) 5 ml PO Q4H PRN PRN Reason: Cough and congestion Last Admin: 07/20/18 10:33 Dose: 5 ml Tiotropium [place] (Spiriva) [address] [facility] Last Admin: 07/20/18 07:30 Dose: Not Given Zolpidem Tartrate (Ambien) [address] [facility] Last Admin: 07/20/18 22:19 Dose: 5 mg - Labs Labs: 07/18/18 08:17 07/20/18 07:24 Assessment and Plan (1) Respiratory insufficiency Assessment & Plan: IMPROVING ,. PT WILL NEED BIPAP OPD. PULMONARY TO ARRANGE FOR TRIOLOGYAS DISCUSSED. ANTITUSSIVES/AND PER PULMONARY. Status: Acute (2) COPD exacerbation Assessment & Plan: CONTINUE NEBULIZER/ AND PULMONARY TOILET. PT AWAITING TRIOLOGY VENTILATOR PER PULMONARY. Status: Acute (3) HTN (hypertension) Status: Acute
[2018-07-21] MEDS: MethylPREDNISolone 40 mg Vial IV SCH ×2 (06:05→13:00)
[2018-07-21 07:39] VITALS: PULSE 92; RESP 18; TEMP 97.8; O2SAT 96
[2018-07-21] MEDS: Tiotropium 18 mcg Cap For Inhalation INH SCH (08:00)
[2018-07-21] MEDS: (Novolog) Insulin Aspart, Recombinant 100 u/ml 10 ml vial SC SCH ×2 (08:30→12:30)
[2018-07-21 08:59] VITALS: BP 151/72
[2018-07-21] MEDS: Pantoprazole 40 mg EC Tab PO SCH (09:00)
[2018-07-21] MEDS: Promethazine/Cod 6.25mg-10mg/5ml Syr UD PO PRN (10:23)
--- NOTE | 2018-07-21 14:02 | CP.PCM.PN ---
Subjective - Date & Time of Evaluation Date of Evaluation: 07/21/18 Time of Evaluation: 14:02 - Subjective Subjective: CHIEF COMPLAINTS TODAY : VSS afebrile COUGH MUCH IMPROVED . DENIES SOB HEENT : N. Resp : No hemoptysis +VE DRY COUGH Cardio : No anginal CP, PND, orthopnea, palpitation GI : No abd.pain, n/v ,diarrhea or GI bleeding . PILLAR MAN : No headache, vertigo, focal deficit. Musculoskel : No joint swelling , Derm : No rash Psych : Normal affect. Ext : No swelling ,calf pain PE. Pt. is alert awake in no distress. V.S As noted in the chart Head ,ear nose,throat and eyes : Normal. Neck : Supple with normal carotids. Lungs: IMPROVING - VE WHEEZE Heart : S1 & S2 normal with S4. No murmur. Abd : Soft non tender with normal bowel sounds. Neuro : Moves all ext. with no localized deficit. Ext : No edema with intact pulses.Non tender calves Derm : No rashes or decubitus ulcer. LABS/RADIOLOGY: REVIEWED (PERTUSSIS IGG, IGA +VE AB Mycoplasma IgM negative Legionella urinary antigen negative. ESR 21 Objective - Vital Signs/Intake and Output Vital Signs (last 24 hours): Temp Pulse Resp BP Pulse Ox 97.8 F 92 H 18 151/72 H 96 07/21/18 07:00 07/21/18 08:56 07/21/18 07:00 07/21/18 08:56 07/21/18 07:00 Intake and Output: 07/21/18 07/21/18 06:59 18:59 Intake Total 400 Balance 400 - Medications Medications: Current Medications Acetaminophen (Tylenol 325mg Tab) 650 mg PO Q6 PRN PRN Reason: Headache Last Admin: 07/21/18 02:29 Dose: 650 mg Amlodipine Besylate (Norvasc) 5 mg PO DAILY [facility] Last Admin: 07/21/18 09:00 Dose: 5 mg Aspirin (Aspirin Chewable) 81 mg PO DAILY [facility] Last Admin: 07/21/18 09:00 Dose: 81 mg Dextrose (Dextrose 50% Inj) 0 ml IV STAT PRN; Protocol PRN Reason: Hypoglycemia Protocol Dextrose (Glutose 15) 0 gm PO ONCE PRN; Protocol PRN Reason: Hypoglycemia Protocol Glucagon (Glucagen Diagnostic Kit) 1 mg IM STAT PRN; Protocol PRN Reason: Hypoglycemia Protocol Hydrochlorothiazide (Hydrodiuril) 25 mg PO DAILY [facility] Last Admin: 07/21/18 09:00 Dose: 25 mg Insulin Aspart (Novolog) 0 unit SC ACHS [facility]; Protocol Last Admin: 07/21/18 12:30 Dose: 2 unit Losartan Potassium (Cozaar) 100 mg PO DAILY [facility] Last Admin: 07/21/18 09:00 Dose: 100 mg Meclizine HCl (Antivert) 25 mg PO Q6 PRN PRN Reason: vertigo Memantine (Namenda) 5 mg PO DAILY [facility] Last Admin: 07/21/18 09:00 Dose: 5 mg Methylprednisolone (Solu-Medrol) 40 mg IV Q8 [facility] Last Admin: 07/21/18 13:00 Dose: 40 mg Pantoprazole Sodium (Protonix Ec Tab) 40 mg PO DAILY [facility] Last Admin: 07/21/18 09:00 Dose: 40 mg Promethazine HCl/Codeine (Phenergan/Codeine Oral Syrup) 5 ml PO Q4H PRN PRN Reason: Cough and congestion Last Admin: 07/21/18 10:23 Dose: 5 ml Tiotropium [place] (Spiriva) 18 mcg INH RQ24 [facility] Last Admin: 07/20/18 07:30 Dose: Not Given Zolpidem Tartrate (Ambien) 5 mg PO HS [facility] Last Admin: 07/20/18 22:19 Dose: 5 mg - Labs Labs: 07/18/18 08:17 07/20/18 07:24 Assessment and Plan (1) Respiratory insufficiency Assessment & Plan: PT MUCH IMPROVED . CASE DISCUSSED WITH PMD . ON DC GIVE Z.PACK X 5DAYS . Status: Acute (2) COPD exacerbation Assessment & Plan: PER PULMONARY . ANTITUSSIVES Status: Acute (3) HTN (hypertension) Status: Acute
--- NOTE | 2018-07-21 14:17 | CP.PCM.DIS ---
Provider - Provider Date of Admission: 07/09/18 23:19 Attending physician: Nuha Oquendo MD Consults: 07/10/18 14:00 Inpatient POST ANESTHESIA CARE UNIT NURSE Core Measures Referral Routine Comment: Physician Instructions: Reason For Exam: copd exacerbation 07/12/18 12:33 Physician Consult Routine Comment: Consulting Provider: Ryan Arboleda Consulting Physician: Ryan Arboleda Reason for Consult: dx [place] copd , wheezing 07/12/18 19:04 Infectious Disease Consult Routine Comment: Consulting Provider: Carmen Mackenzie Consulting Physician: Carmen Mackenzie Reason for Consult: bronchitis Time Spent in preparation of Discharge (in minutes): 30 Hospital Course - Lab Results Lab Results: Micro Results 07/13/18 06:31 Naris MRSA Culture (Admit) - Final MRSA NOT DETECTED 07/09/18 21:00 Blood Blood Culture - Final NO GROWTH AFTER 5 DAYS 07/09/18 21:00 Blood Gram Stain - Final TEST NOT PERFORMED Most Recent Lab Values WBC 11.4 K/uL (4.8-10.8) H 07/18/18 08:17 RBC 4.19 Mil/uL (3.80-5.20) 07/18/18 08:17 Hgb 12.4 g/dL (11.0-16.0) 07/18/18 08:17 Hct 38.2 % (34.0-47.0) 07/18/18 08:17 MCV 91.2 fL (81.0-99.0) 07/18/18 08:17 MCH 29.5 pg (27.0-31.0) 07/18/18 08:17 MCHC 32.4 g/dL (33.0-37.0) L 07/18/18 08:17 RDW 13.3 % (11.5-14.5) 07/18/18 08:17 Plt Count 260 K/uL (130-400) 07/18/18 08:17 MPV 10.1 fL (7.2-11.7) 07/18/18 08:17 Neut % (Auto) 88.3 % (50.0-75.0) H 07/18/18 08:17 Lymph % (Auto) 6.8 % (20.0-40.0) L 07/18/18 08:17 [place] % (Auto) 4.6 % (0.0-10.0) 07/18/18 08:17 Eos % (Auto) 0.0 % (0.0-4.0) 07/18/18 08:17 Baso % (Auto) 0.3 % (0.0-2.0) 07/18/18 08:17 Neut # (Auto) 10.1 K/uL (1.8-7.0) H 07/18/18 08:17 Lymph # (Auto) 0.8 K/uL (1.0-4.3) L 07/18/18 08:17 [place] # (Auto) 0.5 K/uL (0.0-0.8) 07/18/18 08:17 Eos # (Auto) 0.0 K/uL (0.0-0.7) 07/18/18 08:17 Baso # (Auto) 0.0 K/uL (0.0-0.2) 07/18/18 08:17 Neutrophils % (Manual) 93 % (50-75) H 07/18/18 08:17 Band Neutrophils % 4 % (0-2) H 07/12/18 08:57 Lymphocytes % (Manual) 5 % (20-40) L 07/18/18 08:17 Monocytes % (Manual) 2 % (0-10) 07/18/18 08:17 Toxic Granulation Present 07/12/18 08:57 Platelet Estimate Normal (NORMAL) 07/18/18 08:17 Large Platelets Present 07/12/18 08:57 RBC Morphology Normal 07/18/18 08:17 Polychromasia Slight 07/12/18 08:57 Hypochromasia (manual) Slight 07/12/18 08:57 Anisocytosis (manual) Slight 07/12/18 08:57 ESR 21 mm/hr (0-20) H 07/13/18 08:31 Puncture Site Rr 07/17/18 17:30 pCO2 59 mm/Hg (35-45) H 07/17/18 17:30 pO2 76 mm/Hg (80-100) L 07/17/18 17:30 HCO3 40.7 mmol/L (21-28) H* 07/17/18 17:30 ABG pH 7.51 (7.35-7.45) H 07/17/18 17:30 ABG Total CO2 48.9 mmol/L (22-28) H 07/17/18 17:30 ABG O2 Saturation 97.0 % (95-98) 07/17/18 17:30 ABG Base Excess 20.4 mmol/L (-2.0-3.0) H 07/17/18 17:30 ABG Hemoglobin 13.7 g/dL (11.7-17.4) 07/17/18 17:30 ABG Carboxyhemoglobin 1.9 % (0.5-1.5) H 07/17/18 17:30 POC ABG HHb (Measured) 2.9 % (0.0-5.0) 07/17/18 17:30 ABG Methemoglobin 2.2 % (0.0-3.0) 07/17/18 17:30 Raf Test Yes 07/17/18 17:30 A-a O2 Difference 64.0 mm/Hg 07/17/18 17:30 Respiratory Index 0.8 07/17/18 17:30 Hgb O2 Saturation 93.0 % (95.0-98.0) L 07/17/18 17:30 Liter Flow 4.0 07/12/18 15:20 FiO2 30.0 % 07/17/18 17:30 Inspiratory BiPAP 16 07/16/18 16:00 Expiratory BiPAP 8 07/16/18 16:00 Crit Value Called To Angela guerrero 07/17/18 17:30 Crit Value Called By Tres roy 07/17/18 17:30 Crit Value Read Back Y 07/17/18 17:30 Blood Gas Notified Time 1756 07/17/18 17:30 Sodium 130 mmol/L (132-148) L 07/20/18 07:24 Potassium 4.3 mmol/L (3.6-5.2) 07/20/18 07:24 Chloride 85 mmol/L (98-107) L 07/20/18 07:24 Carbon Dioxide 38 mmol/L (22-30) H 07/20/18 07:24 Anion Gap 11 (10-20) 07/20/18 07:24 BUN 32 mg/dL (7-17) H 07/20/18 07:24 Creatinine 0.5 mg/dL (0.7-1.2) L 07/20/18 07:24 Est GFR ( Amer) > 60 07/20/18 07:24 Est GFR (Non-Af Amer) > 60 07/20/18 07:24 POC Glucose (mg/dL) 214 mg/dL (65-110) H 07/21/18 06:19 Random Glucose 199 mg/dL (65-105) H 07/20/18 07:24 Calcium 9.1 mg/dl (8.6-10.4) 07/20/18 07:24 Magnesium 2.1 mg/dL (1.6-2.3) 07/18/18 08:17 Total Bilirubin 0.5 mg/dL (0.2-1.3) 07/20/18 07:24 Direct Bilirubin 0.4 mg/dL (0.0-0.4) 07/17/18 07:22 AST 30 U/L (14-36) 07/20/18 07:24 ALT 71 U/L (9-52) H D 07/20/18 07:24 Alkaline Phosphatase 63 U/L (38-126) 07/20/18 07:24 Troponin I < 0.0120 ng/mL (0.00-0.120) 07/09/18 22:17 C-React Prot High Sens 5.37 mg/L (1.00-3.00) H 07/13/18 08:31 NT-Pro-B Natriuret Pep 403 pg/mL (0-900) 07/11/18 07:45 Total Protein 6.1 g/dL (6.3-8.3) L 07/20/18 07:24 Albumin 3.2 g/dL (3.5-5.0) L 07/20/18 07:24 Globulin 2.9 gm/dL (2.2-3.9) 07/20/18 07:24 Albumin/Globulin Ratio 1.1 (1.0-2.1) 07/20/18 07:24 Bordetella pertussis Spec Source Swab 07/14/18 14:11 B. pertussis IgG (PT) 86 IU/mL H 07/13/18 08:31 B. pertussis IgG (FHA) 31 IU/mL 07/13/18 08:31 B. pertussis IgA (PT) 7 IU/mL 07/13/18 08:31 B. pertussis IgA (FHA) 76 IU/mL H 07/13/18 08:31 B. pertussis DNA (PCR) Not detected (Not Detected) 07/14/18 14:11 B.parapertussis DNA PCR Not detected (Not Detected) 07/14/18 14:11 Ur L.pneumophila Ag Negative (NEGATIVE) 07/12/18 19:25 Mycoplasma pneumon IgM Negative (NEGATIVE) 07/13/18 08:31 - Hospital Course Hospital Course: HPI Patient has a history of COPD. For the last couple of days patient is complaining of cough expectoration and wheezing has been using nebulizer and inhaler [id number] without much improvement. On the day of admission patient become acutely short of breath and presented to [facility] ER and root on the ambulance patient was given Solu-Medrol. Patient was given multiple bronchodilators and nebulizer in the ER without much improvement and patient has been admitted for further treatment In September 2017 patient was admitted and [facility] for similar complaint. During that time patient also had some GI problems and had endoscopy showed some gastric ulcer. There was no any evidence of GI bleeding Patient was admitted on the regular floor. ID and pulmonary consults were obtained and patient was put on BiPAP with significant improvement in her wheezing and coughing patient was treated with BiPAP and IV antibiotics bronchodilators and steroids patient improved on this regimen and will be discharged on by mouth [id number], Medrol pack nebulizers and bronchodilators. Discharge Exam - Head Exam Head Exam: ATRAUMATIC, NORMAL INSPECTION, NORMOCEPHALIC Discharge Plan - Follow Up Plan Condition: IMPROVED Disposition: HOME/ ROUTINE Instructions: COPD Including Emphysema (DC), Heart Failure, Adult (DC), High Blood Pressure (DC) Additional Instructions: Please follow up with Dr. Cadet (Primary Medical Doctor) in 1 week Please follow up with Dr. Arboleda office in 1 week - need BIPAP at bedtime continue medication as per med. rec. Referrals: Ryan Arboleda MD [Staff Provider] - Carmen Mackenzie MD [Staff Provider] - Nuha Oquendo MD [Staff Provider] -
--- NOTE | 2018-07-23 11:23 | PQF ---
PROVIDER RESPONSE TEXT: Probable pneumonia REVIEWER QUERY TEXT: Pneumonia Specificity Pneumonia is documented in the Medical Record. Please specify the type of pneumonia and the causative organism (includes probable or suspected) Such as: Type: -- Aspiration pneumonia (please also specify the aspirate) - (please specify cause) - Please indicate if the aspiration is postprocedure -- Bacterial (please document suspected or probable organism) -- Bronchopneumonia (please document suspected or probable organism) -- Interstitial pneumonia -- Organizing pneumonia / BOOP -- Pneumonia with influenza, sofiya flu, or H1N1 flu -- RSV -- Tuberculosis, pulmonary -- Viral -- Other, please specify The patient's Clinical Indicators include: X-RAYS FINDINGS ? Tx. WITH AZITHROMYCIN PLEASE CLARIFY AND DOCUMENT IF "PNA" WAS R/I OR R/O. Query created by: Khadra Dempsey on 07/22/2018 8:45 AM Electronically signed by: Nuha Oquendo MD 07/23/2018 11:19 AM
== END 2018-07-21 15:50 | disposition home or self-care (01) | DRG 190 ==
LOC: C.ER 20:04 → C.9E 23:19 → C.5S 07-10 14:49
PROVIDERS: ADMIT Internal Medicine Cardiovascular Disease; ATTEND Internal Medicine Cardiovascular Disease
PROC: 5A09457 Assistance with Respiratory Ventilation, 24-96 Consecutive Hours, Continuous Positive Airway Pressure (ICD-10-PCS; principal; 2018-07-09)
DX: J44.0 Chronic obstructive pulmonary disease with (acute) lower respiratory infection (principal); J18.9 Pneumonia, unspecified organism; E87.2 Acidosis; E87.4 Mixed disorder of acid-base balance; A37.90 Whooping cough, unspecified species without pneumonia; J44.1 Chronic obstructive pulmonary disease with (acute) exacerbation; I11.0 Hypertensive heart disease with heart failure; R06.89 Other abnormalities of breathing; I50.9 Heart failure, unspecified; Z87.891 Personal history of nicotine dependence; Z86.73 Personal history of transient ischemic attack (TIA), and cerebral infarction without residual deficits